=== PATIENT | male | born 1945 | race Two or more races ===

== ENCOUNTER 2018-11-26 10:40 | Inpatient (IN) | payer MEDICARE, OTHER ==
[~2018-11-26] VITALS: Ht 167.6 cm; Wt 66.9 kg
--- NOTE | 2018-11-26 10:40 | NUR ---
ED Nurse Note: PT BROUGHT IN TO ER TODAY BY R68 FROM [facility] DUE TO LEFT-SIDED, NONRADIATING CHEST PAIN X 0800 THIS AM. PT GIVEN 2 ROUNDS OF NTG AT FACILITY AND 1 ROUND OF NTG BY EMS WELL 325MG OF ASPIRIN EN ROUTE. AT BEDSIDE, PT DENIES CHEST PAIN. HR 61 WITH NORMAL SINUS RHYTHM ON CUSTOMS MANAGER. OF NOTE, PT GOES TO DIALYSIS [facility] AND PRESENTS WITH LEFT FOREARM AV SHUNT. PT STATES LAST DIALYSIS WAS YESTERDAY. PT ALSO PRESENTS WITH ATRIAL PACEMAKER TO RIGHT UPPER CHEST. PT AOX4 AND AMBULATORY.
[2018-11-26] MEDS ORDERED: DULCOLAX10 MG RC (11:02)
[2018-11-26] MEDS ORDERED: ISOSORBIDE MONO30 M1 PO (11:02)
[2018-11-26] MEDS ORDERED: HYDRALAZINE HCL25 M1 ORAL (11:02)
[2018-11-26] MEDS ORDERED: ACETAMINOPHEN325 M1 ORAL (11:02)
[2018-11-26] MEDS ORDERED: AVODART0.5 MG ORAL (11:02)
[2018-11-26] MEDS ORDERED: KEPPRA500 M4 ORAL (11:02)
[2018-11-26] MEDS ORDERED: AMIODARONE HCL200 MG ORAL (11:02)
[2018-11-26] MEDS ORDERED: PAXIL20 MG ORAL (11:02)
[2018-11-26] MEDS ORDERED: NEPHROVITE1 TAB ORAL (11:02)
[2018-11-26] MEDS ORDERED: PROTONIX40 MG ORAL (11:02)
[2018-11-26] MEDS ORDERED: ARTIFICIAL TEAR15 ML BOTH EYES (11:02)
[2018-11-26] MEDS ORDERED: RENAGEL800 MG ORAL (11:02)
[2018-11-26] MEDS ORDERED: MECLIZINE HCL25 MG ORAL (11:02)
[2018-11-26] MEDS ORDERED: FOLIC ACID1 MG ORAL (11:02)
[2018-11-26] MEDS ORDERED: FLOMAX0.4 MG ORAL (11:02)
[2018-11-26] MEDS ORDERED: AMLODIPINE BESY10 MG ORAL (11:02)
[2018-11-26] MEDS ORDERED: CARVEDILOL25 MG ORAL (11:02)
[2018-11-26] MEDS ORDERED: HUMULIN R100 UNIT/1 SUBQ (11:02)
[2018-11-26] MEDS ORDERED: COLACE100 MG ORAL (11:02)
[2018-11-26] MEDS ORDERED: ASPIRIN81 MG ORAL (11:02)
[2018-11-26] MEDS ORDERED: GABAPENTIN100 MG ORAL (11:02)
[2018-11-26] MEDS ORDERED: ASCORBIC ACID500 MG ORAL (11:02)
[2018-11-26] MEDS ORDERED: FLEET ENEMA133 ML RECTAL (11:02)
[2018-11-26] MEDS ORDERED: MILK OF MA400 MG/51 ORAL (11:02)
--- NOTE | 2018-11-26 11:06 | Emergency Room Report ---
History of Present Illness General Chief Complaint: Chest Pain Source: Patient, EMS Present Illness HPI Patient presents with complaints of chest pain reports the pain started earlier today midsternal denies any change with position or exertion denies any cough or shortness of breath patient has dialysis On Friday and did have his dialysis yesterday Denies any pleurisy denies any vomiting or diarrhea denies any fevers or chills Allergies: Coded Allergies: LOSARTAN (Verified Allergy, Unknown, 11/26/18) METOCLOPRAMIDE (Verified Allergy, Unknown, 11/26/18) [id number] REDUCTASE INHIBITOR (Verified Allergy, Unknown, 11/26/18) Patient History Past Medical History: see triage record Pertinent Family History: none Reviewed Nursing Documentation: PMH: Agreed; PSxH: Agreed Nursing Documentation-PMH Past Medical History: No History, Except For Hx Cardiac Problems: Yes - CHF, hyperlipidemia Hx Pacemaker: Yes Hx Diabetes: Yes Hx Dialysis: Yes - MWF Review of Systems All Other Systems: negative except mentioned in HPI Physical Exam Vital Signs Date Time Temp Pulse Resp B/P (MAP) Pulse Ox O2 Delivery O2 Flow Rate FiO2 11/26/18 10:37 63 16 137/63 (87) 99 Room Air Sp02 EP Interpretation: reviewed, normal General Appearance: well appearing, no apparent distress Head: normocephalic, atraumatic Eyes: bilateral eye PERRL, bilateral eye EOMI ENT: hearing grossly normal, normal pharynx, TMs + canals normal, uvula midline Neck: full range of motion, supple, no meningismus, no bony tend Respiratory: lungs clear, normal breath sounds, no rhonchi, no respiratory distress, no retraction, no accessory muscle use Cardiovascular #1: normal peripheral pulses, regular rate, rhythm, no edema, no gallop, no JVD, no murmur Gastrointestinal: normal bowel sounds, non tender, soft, no mass, no organomegaly, non-distended, no guarding, no hernia, no pulsatile mass, no rebound Genitourinary: no CVA tenderness Musculoskeletal: normal inspection Neurologic: oriented x3, responsive, cigar brander III-XII nml as tested, motor strength/ tone normal, sensory intact Psychiatric: mood/affect normal Skin: normal color, no rash, warm/dry, palpation normal, other - AV fistula left forearm Lymphatic: normal inspection, no adenopathy Medical Decision Making Diagnostic Impression: Primary Impression: ACS (acute coronary syndrome) ER Course Patient is a fairly complex patient with multiple differential to consideration including but not limited to cardiac cardiopulmonary and vascular emergencies it was reported that the patient had several attempts by nursing staff for IV establishment At this time patient now refuses any further attempt Also does not want to entertain Placement by myself Blood work is at baseline levels x-ray does not show any acute disease Patient will be placed in observation for further evaluation and repeat examinations Labs Test 11/26/18 10:45 White Blood Count 5.2 K/UL (4.8-10.8) Red Blood Count 3.35 M/UL (4.70-6.10) Hemoglobin 11.4 G/DL (14.2-18.0) Hematocrit 33.0 % (42.0-52.0) Mean Corpuscular Volume 99 FL (80-99) Mean Corpuscular Hemoglobin 33.9 PG (27.0-31.0) Mean Corpuscular Hemoglobin Concent 34.4 G/DL (32.0-36.0) Red Cell Distribution Width 13.1 % (11.6-14.8) Platelet Count 97 K/UL (150-450) Mean Platelet Volume 7.2 FL (6.5-10.1) Neutrophils (%) (Auto) % (45.0-75.0) Lymphocytes (%) (Auto) % (20.0-45.0) Monocytes (%) (Auto) % (1.0-10.0) Eosinophils (%) (Auto) % (0.0-3.0) Basophils (%) (Auto) % (0.0-2.0) Differential Total Cells Counted 100 Neutrophils % (Manual) 80 % (45-75) Lymphocytes % (Manual) 11 % (20-45) Monocytes % (Manual) 6 % (1-10) Eosinophils % (Manual) 3 % (0-3) Basophils % (Manual) 0 % (0-2) Band Neutrophils 0 % (0-8) Platelet Estimate Decreased Platelet Morphology Normal Sodium Level 137 MMOL/L (136-145) Potassium Level 3.6 MMOL/L (3.5-5.1) Chloride Level 100 MMOL/L (98-107) Carbon Dioxide Level 29 MMOL/L (21-32) Anion Gap 8 mmol/L (5-15) Blood Urea Nitrogen 22 mg/dL (7-18) Creatinine 4.5 MG/DL (0.55-1.30) Estimat Glomerular Filtration Rate mL/min (>60) Glucose Level 193 MG/DL (74-106) Calcium Level 9.5 MG/DL (8.5-10.1) Total Bilirubin 0.8 MG/DL (0.2-1.0) Aspartate Amino Transf (AST/SGOT) 37 U/L (15-37) Alanine Aminotransferase (ALT/SGPT) 48 U/L (12-78) Alkaline Phosphatase 142 U/L (46-116) Total Creatine Kinase 64 U/L (26-308) Creatine Kinase MB 0.8 NG/ML (0.0-3.6) Creatine Kinase MB Relative Index 1.2 Troponin I 0.017 ng/mL (0.000-0.056) Pro-B-Type Natriuretic Peptide 56511 pg/mL (0-125) Total Protein 7.4 G/DL (6.4-8.2) Albumin 3.3 G/DL (3.4-5.0) Globulin 4.1 g/dL Albumin/Globulin Ratio 0.8 (1.0-2.7) Lipase 85 U/L (73-393) EKG Diagnostic Results Rate: other - paced Rhythm: other ST Segments: no acute changes Rhythm Strip Diag. Results EP Interpretation: yes Rate: 60 Rhythm: no PVC's, no ectopy, other - paced Chest X-Ray Diagnostic Results Chest X-Ray Diagnostic Results : Chest X-Ray Ordered: Yes # of Views/Limited/Complete: 1 View Indication: Chest Pain EP Interpretation: Yes Interpretation: no consolidation, no effusion, no pneumothorax Impression: No acute disease Electronically Signed by: Vera Davis DO Last Vital Signs Date Time Temp Pulse Resp B/P (MAP) Pulse Ox O2 Delivery O2 Flow Rate FiO2 11/26/18 10:37 63 16 137/63 (87) 99 Room Air Status: improved Disposition: PLACE IN OBSERVATION Condition: Vera Dejesus DO Nov 26, 2018 11:06
[2018-11-26 11:08] VITALS: BP 153/64
[2018-11-26 11:11] LABS: ANION GAP 8 mmol/L (5-15); BLOOD UREA NITROGEN 22 mg/dL (7-18); CALCIUM 9.5 MG/DL (8.5-10.1); CARBON DIOXIDE 29 MMOL/L (21-32); CHLORIDE 100 MMOL/L (98-107); CREATININE 4.5 MG/DL (0.55-1.30); POTASSIUM 3.6 MMOL/L (3.5-5.1); SODIUM 137 MMOL/L (136-145)
[2018-11-26 11:16] LABS: HEMOGLOBIN 11.4 G/DL (14.2-18.0); MEAN CORPUSCULAR VOLUME 99 FL (80-99); PLATELET COUNT 97 K/UL (150-450); RED BLOOD COUNT 3.35 M/UL (4.70-6.10); RED CELL DISTRIBUTION WIDTH 13.1 % (11.6-14.8); WHITE BLOOD COUNT 5.2 K/UL (4.8-10.8)
[2018-11-26 11:26] LABS: ALANINE AMINOTRANSFERASE 48 U/L (12-78); ALBUMIN 3.3 G/DL (3.4-5.0); ALBUMIN/GLOBULIN RATIO 0.8 (1.0-2.7); ALKALINE PHOSPHATASE 142 U/L (46-116); ASPARTATE AMINO TRANSFERASE 37 U/L (15-37); BILIRUBIN,TOTAL 0.8 MG/DL (0.2-1.0); CKMB 0.8 NG/ML (0.0-3.6); CREATINE KINASE 64 U/L (26-308)
--- NOTE | 2018-11-26 11:55 | Diagnostic Imaging Report ---
Indication: Chest pain Comparison: None A single view chest radiograph was obtained. Findings: There is a pacemaker in the right anterior chest wall. Cardiomegaly and sternotomy noted. Aorta is ectatic. Mild pulmonary vascular congestion is present. There is a stent in the left axilla. Bones are osteopenic. IMPRESSION: Pulmonary vascular congestion
--- NOTE | 2018-11-26 12:27 | NUR ---
ED Nurse Note: 4 nurses attempted to establish IV unable pt hard stick. . blast furnace helper tried pt refused any further attempts. ERMD aware and ED sup. aware.
--- NOTE | 2018-11-26 12:51 | NUR ---
ED Nurse Note: TELE UNIT CALLED FOR PT REPORT. REPORT GIVEN TO ALICIA OWENS BY ALICIA KNOWLES. PT TAKEN UP TO TELE UNIT VIA GURNEY ON HAZARDOUS WASTE REMOVER WITH ALL BELONGINGS ACCOMPANIED BY ALICIA KNOWLES AND EMT. VSS.
--- NOTE | 2018-11-26 13:00 | NUR ---
NURSE NOTES: Report received from ALICIA Stout from ED.
--- NOTE | 2018-11-26 13:00 | NUR ---
NURSE NOTES: Patient arrived to unit via gurney accompanied with RN. Patient is alert and oriented x 3 and verbally responsive. Denies pain at this time. No distress noted in room air. No IV access at this time due to refusal. Belongings checked with RN. Skin assessment done with no skin problems noted. monitor tech applied to the patient. Oriented to new room and environment. Bed in lowest position. Call light within reach. Will continue to monitor.
[2018-11-26 13:15] VITALS: BP 157/77
--- NOTE | 2018-11-26 13:54 | Consultation ---
History of Present Illness General Date patient seen: Nov 26, 2018 Chief Complaint: Chest Pain Present Illness HPI 73 year old male with hx of DM, HTN, ESRF on HD (Friday), with ICD presented to ER from his correction with complaints of chest pain, midsternal denies any change with position or exertion denies any cough or shortness of breath. He is admitted to telemetry for further work up. Allergies: Coded Allergies: LOSARTAN (Verified Allergy, Unknown, 11/26/18) METOCLOPRAMIDE (Verified Allergy, Unknown, 11/26/18) [id number] REDUCTASE INHIBITOR (Verified Allergy, Unknown, 11/26/18) Medication History Scheduled Amiodarone Hcl* (Cordarone*), 200 MG ORAL DAILY, (Reported) Amlodipine Besylate* (Amlodipine Besylate*), 10 MG ORAL DAILY, (Reported) Ascorbic Acid* (Ascorbic Acid*), 500 MG ORAL TWICE A DAY, (Reported) Aspirin* (Aspirin*), 81 MG ORAL DAILY, (Reported) Carvedilol* (Carvedilol*), 25 MG ORAL EVERY 12 HOURS, (Reported) Docusate Sodium* (Colace*), 100 MG ORAL DAILY, (Reported) Dutasteride (Avodart), 0.5 MG ORAL DAILY, (Reported) Folic Acid* (Folic Acid*), 1 MG ORAL DAILY, (Reported) Gabapentin* (Gabapentin*), 100 MG ORAL BID, (Reported) Hydralazine Hcl* (Hydralazine Hcl*), 25 MG ORAL EVERY 8 HOURS, (Reported) Levetiracetam (Keppra), 500 MG ORAL EVERY 12 HOURS, (Reported) Magnesium Hydroxide* (Milk Of Magnesia*), 30 ML ORAL DAILY, (Reported) Meclizine Hcl* (Meclizine*), 25 MG ORAL THREE TIMES A DAY, (Reported) Na Phos,M-B/Na Phos,Di-Ba* (Fleet Enema*), 133 ML RECTAL DAILY, (Reported) Pantoprazole* (Protonix*), 40 MG ORAL DAILY, (Reported) Paroxetine Hcl* (Paxil*), 20 MG ORAL DAILY, (Reported) Sevelamer Hcl (Renagel), 800 MG ORAL THREE TIMES A DAY, (Reported) Tamsulosin HCl (Flomax), 0.4 MG ORAL DAILY, (Reported) Vitamin B Cmplx/Vit C/Folic AC (Nephro-John Tablet), 1 TAB ORAL DAILY, (Reported ) Scheduled PRN Acetaminophen* (Acetaminophen 325MG Tablet*), 650 MG ORAL Q4H PRN for Pain Scale (3-5), (Reported) Miscellaneous Medications Bisacodyl (Dulcolax), 10 MG RC, (Reported) Dextran 70/Hypromellose (Artificial Tears Eye Drops*), 1 DROP BOTH EYES, ( Reported) Insulin Regular, Human (Humulin R), 0 SUBQ, (Reported) Isosorbide Mononitrate (Isosorbide Mononitrate Er), 30 MG PO, (Reported) Patient History Healthcare decision maker Resuscitation status Full Code Advanced Directive on File Past Medical/Surgical History Past Medical/Surgical History: (1) ESRF (end stage renal failure) (2) Diabetes mellitus (3) History of seizure (4) BPH (benign prostatic hyperplasia) (5) AICD (automatic cardioverter/defibrillator) present Review of Systems Eye: Reports: no symptoms Cardiovascular: Reports: chest pain Physical Exam General Appearance: WD/WN Lines, tubes and drains: peripheral HEENT: normocephalic, atraumatic Neck: non-tender, normal alignment Respiratory/Chest: chest wall non-tender, lungs clear Breasts: no masses Cardiovascular/Chest: normal peripheral pulses Abdomen: normal bowel sounds, soft Genitourinary/Rectal: normal genital exam, heme negative stool Extremities: non-tender Skin Exam: normal pigmentation 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 normal Last 24 Hour Vital Signs Date Time Temp Pulse Resp B/P (MAP) Pulse Ox O2 Delivery O2 Flow Rate FiO2 11/26/18 13:45 Room Air 11/26/18 12:51 97.2 61 12 153/64 99 Room Air 11/26/18 11:08 61 12 Room Air 11/26/18 11:08 97.2 61 12 153/64 99 Room Air 11/26/18 10:37 63 16 137/63 (87) 99 Room Air Laboratory Tests Test 11/26/18 10:45 White Blood Count 5.2 K/UL (4.8-10.8) Red Blood Count 3.35 M/UL (4.70-6.10) L Hemoglobin 11.4 G/DL (14.2-18.0) L Hematocrit 33.0 % (42.0-52.0) L Mean Corpuscular Volume 99 FL (80-99) Mean Corpuscular Hemoglobin 33.9 PG (27.0-31.0) H Mean Corpuscular Hemoglobin Concent 34.4 G/DL (32.0-36.0) Red Cell Distribution Width 13.1 % (11.6-14.8) Platelet Count 97 K/UL (150-450) L Mean Platelet Volume 7.2 FL (6.5-10.1) Neutrophils (%) (Auto) % (45.0-75.0) Lymphocytes (%) (Auto) % (20.0-45.0) Monocytes (%) (Auto) % (1.0-10.0) Eosinophils (%) (Auto) % (0.0-3.0) Basophils (%) (Auto) % (0.0-2.0) Differential Total Cells Counted 100 Neutrophils % (Manual) 80 % (45-75) H Lymphocytes % (Manual) 11 % (20-45) L Monocytes % (Manual) 6 % (1-10) Eosinophils % (Manual) 3 % (0-3) Basophils % (Manual) 0 % (0-2) Band Neutrophils 0 % (0-8) Platelet Estimate Decreased L Platelet Morphology Normal Sodium Level 137 MMOL/L (136-145) Potassium Level 3.6 MMOL/L (3.5-5.1) Chloride Level 100 MMOL/L (98-107) Carbon Dioxide Level 29 MMOL/L (21-32) Anion Gap 8 mmol/L (5-15) Blood Urea Nitrogen 22 mg/dL (7-18) H Creatinine 4.5 MG/DL (0.55-1.30) H Estimat Glomerular Filtration Rate mL/min (>60) Glucose Level 193 MG/DL (74-106) H Calcium Level 9.5 MG/DL (8.5-10.1) Total Bilirubin 0.8 MG/DL (0.2-1.0) Aspartate Amino Transf (AST/SGOT) 37 U/L (15-37) Alanine Aminotransferase (ALT/SGPT) 48 U/L (12-78) Alkaline Phosphatase 142 U/L (46-116) H Total Creatine Kinase 64 U/L (26-308) Creatine Kinase MB 0.8 NG/ML (0.0-3.6) Creatine Kinase MB Relative Index 1.2 Troponin I 0.017 ng/mL (0.000-0.056) Pro-B-Type Natriuretic Peptide 41929 pg/mL (0-125) H Total Protein 7.4 G/DL (6.4-8.2) Albumin 3.3 G/DL (3.4-5.0) L Globulin 4.1 g/dL Albumin/Globulin Ratio 0.8 (1.0-2.7) L Lipase 85 U/L (73-393) Height (Feet): 5 Height (Inches): 6.00 Weight (Pounds): 135 Assessment/Plan Problem List: (1) ACS (acute coronary syndrome) ICD Codes: I24.9 - Acute ischemic heart disease, unspecified SNOMED: 063843140 (2) ESRF (end stage renal failure) ICD Codes: N18.6 - End stage renal disease SNOMED: 22469666 (3) Diabetes mellitus ICD Codes: E11.9 - Type 2 diabetes mellitus without complications SNOMED: 21946392 (4) AICD (automatic cardioverter/defibrillator) present ICD Codes: Z95.810 - Presence of automatic (implantable) cardiac defibrillator SNOMED: 20296926, 532620217 (5) History of seizure ICD Codes: Z87.898 - Personal history of other specified conditions SNOMED: 420344201 (6) BPH (benign prostatic hyperplasia) ICD Codes: N40.0 - Benign prostatic hyperplasia without lower urinary tract symptoms SNOMED: 109777314 Assessment/Plan: serial ekg, troponin echocardiogram cardiology evaluation. check ICD sliding scale diabetic diet seizure precaution Emiliano Castellanos MD Nov 26, 2018 13:54
[2018-11-26] MEDS ORDERED: Morphine Sulfate 2mg/ml Inj(IV/IM USE ONLY) IVP PRN (14:00)
[2018-11-26] MEDS ORDERED: Dextrose 50% 25ml Syringe IV PRN (14:00)
[2018-11-26] MEDS ORDERED: Miralax 17gm pkt ORAL PRN (14:00)
[2018-11-26] MEDS ORDERED: Zolpidem 5mg tab ORAL PRN (14:00)
[2018-11-26] MEDS ORDERED: Albuterol/Ipratropium 3ml neb HHN PRN (14:00)
[2018-11-26 16:00] VITALS: BP 164/74
--- NOTE | 2018-11-26 16:00 | NUR ---
CASE MANAGEMENT: INITIAL REVIEW 11/26/2018 73 YO Rylan ROSS FROM [facility] CC: CP PMHx: CHF. HLD. PACER. DM. HD MWF. ESRD. Si:ACS. HR 63 RR 16 B/P 137/63 SATS 99% ON RA BUN 22 CR 4.5 GLU 193 ALP 142 BNP 59949 IS: KEPPRA PO Q12H GABAPENTIN PO BID CORDARONE PO QD PAXIL PO QD FLOMAX PO QD NOVOLOG SUBQ AC/HS PATIENT ADMITTED TO TELE 11/26/2018 @ 7264 DCP: PATIENT TO BE DISCHARGED TO SNF ONCE MEDICALLY CLEARED. PLAN OF CARE: PT EVAL SERIAL TROPONIN CARDIO EVAL PACER INTERROGATION 2D ECHO EF 55% Addendum: 11/26/18 at 1608 by Sanna Bravo INTERQUAL MET
[2018-11-26] MEDS: NovoLOG Insulin Flexpen SUBQ SCH ×2 (16:13→21:00)
--- NOTE | 2018-11-26 16:47 | Consultation ---
Consult Note Consult Note asked to eval for dialysis management on HD Fri Has left arm fistula Frisian speaker Patient presents with complaints of chest pain reports the pain started earlier today midsternal denies any change with position or exertion denies any cough or shortness of breath patient has dialysis On Friday and did have his dialysis yesterday Denies any pleurisy denies any vomiting or diarrhea denies any fevers or chills Coded Allergies: LOSARTAN (Verified Allergy, Unknown, 11/26/18) METOCLOPRAMIDE (Verified Allergy, Unknown, 11/26/18) [id number] REDUCTASE INHIBITOR (Verified Allergy, Unknown, 11/26/18) Past Medical History: No History, Except For Hx Cardiac Problems: Yes - CHF, hyperlipidemia Hx Pacemaker: Yes Hx Diabetes: Yes Hx Dialysis: Yes - MWF examined data reviewed Assessment/Plan ACS ESRD HTN BPH DM HD in am BP and BS control per cardiology Manolo Grimes MD Nov 26, 2018 16:47
--- NOTE | 2018-11-26 17:20 | NUR ---
NURSE NOTES: Called to [facility] dialysis center to inform about Hemodialysis order for tomorrow. Spoke with Kesha from [facility] dialysis. Awaiting for call back from dialysis nurse.
--- NOTE | 2018-11-26 19:32 | NUR ---
HAND-OFF: Report given to ALICIA Santana. Stable condition.
--- NOTE | 2018-11-26 19:33 | NUR ---
NURSE NOTES: Report received from ALICIA Dave. Patient is alert and oriented x 3 and verbally responsive. Pt is resting at this time. No distress noted on room air. No IV access at this time due to refusal. ekg monitor leads in place. Bed is locked in lowest position, side rails x2. Will continue to monitor.
[2018-11-26 20:00] VITALS: BP 155/71
[2018-11-26] MEDS: Heparin 5000 units/ml inj SUBQ SCH (21:00)
[2018-11-26] MEDS ORDERED: Tamsulosin 0.4mg cap ORAL SCH (21:00)
[2018-11-26] MEDS: Tamsulosin 0.4mg cap ORAL SCH (21:32)
--- NOTE | 2018-11-27 00:30 | History and Physical Report ---
DATE OF ADMISSION: 11/26/2018 CONSULTANTS: 1. Emiliano Castellanos M.D. 2. Reno Pinto M.D. 3. Bianka Lopez M.D. CHIEF COMPLAINT: Severe chest pain, ACS. BRIEF HISTORY: This is a 73-year-old male from [facility], presents with what he describes as 10/10 chest pain, substernal. The patient came to [facility], diagnosed with the above, and admitted to telemetry. Currently, getting ultrasound in bed, sleepy, not talking much, refusing to answer questions. PAST MEDICAL HISTORY: Include ACS, ESRD, diabetes, BPH, and seizure. PAST SURGICAL HISTORY: Unknown. MEDICATIONS: Include amiodarone, paroxetine, , , heparin, gabapentin, insulin, morphine, Zofran, zolpidem, clonidine, and Tylenol. ALLERGIES: Losartan, Reglan, and statins. SOCIAL HISTORY: Unable to obtain secondary to the patient's condition. REVIEW OF SYSTEMS: Unavailable. PHYSICAL EXAMINATION: GENERAL: Calm, sleeping in bed, getting an ultrasound. VITAL SIGNS: Temperature is 97 degrees, pulse 61, respirations 20, and blood pressure 157/77. CARDIOVASCULAR: No murmurs. LUNGS: Distant and clear. ABDOMEN: Bowel sounds positive. Nontender and nondistended. EXTREMITIES: Show no cyanosis or edema. NEUROLOGIC: The patient is flaccid in bed, not following directions. LABORATORY AND DIAGNOSTIC DATA: Labs at this time show hemoglobin and hematocrit are 11.4 and 33. Otherwise, CBC is normal. BMP shows BUN and creatinine are 22 and 4.5. Glucose is 193. Alkaline phosphatase 143. Troponin 0.017. BNP is 22,865. Albumin 3.3. ASSESSMENT: 1. ACS. 2. Confusion. 3. ESRD. 4. Diabetes. 5. BPH. 6. Seizure. 7. Anemia. 8. Malnutrition. PLAN: 1. Cardiology followup. 2. Blood pressure control. 3. Blood sugar control. 4. Seizure control. 5. Dietary followup. 6. Resume home medications. 7. Dialysis p.r.n. 8. Troponin q.8 h. x3. 9. EKG in the a.m. 10. PT and dietary evaluation. Jethro Novoa D.O. DR: [place] JOB#: [id number] CC:
[2018-11-27 00:35] VITALS: BP 150/74
[2018-11-27 04:00] VITALS: BP 156/68
[2018-11-27] MEDS: NovoLOG Insulin Flexpen SUBQ SCH ×4 (06:30→21:00)
--- NOTE | 2018-11-27 07:27 | NUR ---
HAND-OFF: Report given to ALICIA Gutierrez.
--- NOTE | 2018-11-27 07:35 | NUR ---
NURSE NOTES: Pt received from Jet RN alert and oriented x3, primarily Cymro-speaking. No acute s/s of distress noted. No IV on patient at this time, per PM nurse, IV site was d/gary by patient and unable to start new one. Will try to start IV. L arm AV shunt bruit and thrill palpated and auscultated, pending HD today with [facility]. Bed in lowest position, call light and belongings within reach.
[2018-11-27 08:00] VITALS: BP 152/70
[2018-11-27] MEDS: Amiodarone 200mg tab ORAL SCH ×2 (08:28→08:31)
[2018-11-27] MEDS: PARoxetine 20mg tab ORAL SCH (08:29)
[2018-11-27] MEDS: Heparin 5000 units/ml inj SUBQ SCH ×2 (08:29→21:00)
--- NOTE | 2018-11-27 08:40 | General Progress Note ---
Assessment/Plan Problem List: (1) ACS (acute coronary syndrome) ICD Codes: I24.9 - Acute ischemic heart disease, unspecified SNOMED: 684968581 (2) ESRF (end stage renal failure) ICD Codes: N18.6 - End stage renal disease SNOMED: 03231090 (3) Diabetes mellitus ICD Codes: E11.9 - Type 2 diabetes mellitus without complications SNOMED: 14685974 (4) History of seizure ICD Codes: Z87.898 - Personal history of other specified conditions SNOMED: 375799450 (5) BPH (benign prostatic hyperplasia) ICD Codes: N40.0 - Benign prostatic hyperplasia without lower urinary tract symptoms SNOMED: 213081938 Status: stable, progressing Assessment/Plan: pt diet pain control cardio f/u cbc bmp am dc plan Subjective Constitutional: Reports: weakness Allergies: Coded Allergies: LOSARTAN (Verified Allergy, Unknown, 11/26/18) METOCLOPRAMIDE (Verified Allergy, Unknown, 11/26/18) [id number] REDUCTASE INHIBITOR (Verified Allergy, Unknown, 11/26/18) All Systems: reviewed and negative except above Subjective decreased chest pain Objective Last 24 Hour Vital Signs Date Time Temp Pulse Resp B/P (MAP) Pulse Ox O2 Delivery O2 Flow Rate FiO2 11/27/18 08:29 64 18 96 Room Air 21 11/27/18 04:00 97.3 62 18 156/68 (97) 98 11/27/18 04:00 60 11/27/18 00:35 97.7 63 18 150/74 (99) 98 11/27/18 00:00 60 11/26/18 21:01 Room Air 11/26/18 20:00 97.6 60 20 155/71 (99) 98 11/26/18 20:00 60 11/26/18 19:20 60 18 97 Room Air 21 11/26/18 17:13 164/74 11/26/18 16:00 60 11/26/18 16:00 96.6 60 21 164/74 (104) 98 11/26/18 13:45 Room Air 11/26/18 13:15 97.6 61 20 157/77 (103) 99 11/26/18 12:51 97.2 61 12 153/64 99 Room Air 11/26/18 11:08 61 12 Room Air 6/27/19 11:08 97.2 61 12 153/64 99 Room Air 11/26/18 10:37 63 16 137/63 (87) 99 Room Air Intake and Output 11/26/18 11/27/18 19:00 07:00 Intake Total 30 ml 170 ml Output Total 0 ml 0 ml Balance 30 ml 170 ml Intake Oral 30 ml 170 ml Output Urine Total 0 ml 0 ml # Voids 1 Laboratory Tests 11/26/18 10:45: White Blood Count 5.2, Red Blood Count 3.35L, Hemoglobin 11.4L, Hematocrit 33.0L , Mean Corpuscular Volume 99, Mean Corpuscular Hemoglobin 33.9H, Mean Corpuscular Hemoglobin Concent 34.4, Red Cell Distribution Width 13.1, Platelet Count 97L, Mean Platelet Volume 7.2, Neutrophils (%) (Auto) , Lymphocytes (%) ( Auto) , Monocytes (%) (Auto) , Eosinophils (%) (Auto) , Basophils (%) (Auto) , Differential Total Cells Counted 100, Neutrophils % (Manual) 80H, Lymphocytes % (Manual) 11L, Monocytes % (Manual) 6, Eosinophils % (Manual) 3, Basophils % ( Manual) 0, Band Neutrophils 0, Platelet Estimate DecreasedL, Platelet Morphology Normal, Sodium Level 137, Potassium Level 3.6, Chloride Level 100, Carbon Dioxide Level 29, Anion Gap 8, Blood Urea Nitrogen 22H, Creatinine 4.5H, Estimat Glomerular Filtration Rate , Glucose Level 193H, Calcium Level 9.5, Total Bilirubin 0.8, Aspartate Amino Transf (AST/SGOT) 37, Alanine Aminotransferase (ALT/SGPT) 48, Alkaline Phosphatase 142H, Total Creatine Kinase 64, Creatine Kinase MB 0.8, Creatine Kinase MB Relative Index 1.2, Troponin I 0.017, Pro-B-Type Natriuretic Peptide 20083L, Total Protein 7.4, Albumin 3.3L, Globulin 4.1, Albumin/Globulin Ratio 0.8L, Lipase 85 11/26/18 17:00: Troponin I 0.013 11/27/18 08:20: White Blood Count [Pending], Red Blood Count [Pending], Hemoglobin [Pending], Hematocrit [Pending], Mean Corpuscular Volume [Pending], Mean Corpuscular Hemoglobin [Pending], Mean Corpuscular Hemoglobin Concent [Pending], Red Cell Distribution Width [Pending], Platelet Count [Pending], Mean Platelet Volume [ Pending], Neutrophils (%) (Auto) [Pending], Lymphocytes (%) (Auto) [Pending], Monocytes (%) (Auto) [Pending], Eosinophils (%) (Auto) [Pending], Basophils (%) (Auto) [Pending], Sodium Level [Pending], Potassium Level [Pending], Chloride Level [Pending], Carbon Dioxide Level [Pending], Blood Urea Nitrogen [Pending], Creatinine [Pending], Estimat Glomerular Filtration Rate [Pending], Glucose Level [Pending], Calcium Level [Pending], Total Bilirubin [Pending], Aspartate Amino Transf (AST/SGOT) [Pending], Alanine Aminotransferase (ALT/SGPT) [Pending] , Alkaline Phosphatase [Pending], Total Creatine Kinase [Pending], Troponin I [ Pending], Pro-B-Type Natriuretic Peptide [Pending], Total Protein [Pending], Albumin [Pending], Globulin [Pending], Hemoglobin A1c [Pending], Uric Acid [ Pending], Phosphorus Level [Pending], Magnesium Level [Pending], Iron Level [ Pending], Unsaturated Iron Binding [Pending], Ferritin [Pending], Gamma Glutamyl Transpeptidase [Pending], C-Reactive Protein, Quantitative [Pending], Triglycerides Level [Pending], Cholesterol Level [Pending], LDL Cholesterol [ Pending], HDL Cholesterol [Pending], Cholesterol/HDL Ratio [Pending], Vitamin B12 Level [Pending], Folate [Pending], Thyroid Stimulating Hormone (TSH) [ Pending] Height (Feet): 5 Height (Inches): 6.00 Weight (Pounds): 148 General Appearance: lethargic EENT: normal ENT inspection Neck: normal alignment Cardiovascular: normal peripheral pulses, normal rate, regular rhythm Respiratory/Chest: chest wall non-tender, lungs clear, normal breath sounds Abdomen: normal bowel sounds, non tender, soft Extremities: normal inspection Edema: no edema noted Arm (L), no edema noted Arm (R), no edema noted Leg (L), no edema noted Leg (R), no edema noted Pedal (L), no edema noted Pedal (R), no edema noted Generalized Neurologic: responsive, motor weakness Skin: normal pigmentation, warm/dry Jethro Novoa DO Nov 27, 2018 08:40
[2018-11-27 08:44] LABS: BASOPHILS % (AUTO) 0.7 % (0.0-2.0); EOSINOPHILS % (AUTO) 2.8 % (0.0-3.0); HEMATOCRIT 31.5 % (42.0-52.0); HEMOGLOBIN 10.8 G/DL (14.2-18.0); LYMPHOCYTES % (AUTO) 16.9 % (20.0-45.0); MEAN CORPUSCULAR VOLUME 98 FL (80-99); MONOCYTES % (AUTO) 10.3 % (1.0-10.0); NEUTROPHILS % (AUTO) 69.2 % (45.0-75.0); PLATELET COUNT 100 K/UL (150-450); RED BLOOD COUNT 3.22 M/UL (4.70-6.10); RED CELL DISTRIBUTION WIDTH 12.6 % (11.6-14.8); WHITE BLOOD COUNT 4.6 K/UL (4.8-10.8)
[2018-11-27] MEDS ORDERED: Tamsulosin 0.4mg cap ORAL SCH (09:00)
[2018-11-27 09:17] LABS: % IRON SATURATION 30 % (15-50); IRON 55 ug/dL (50-175); TOTAL IRON BINDING CAPACITY 184 ug/dL (250-450)
[2018-11-27 09:26] LABS: ALANINE AMINOTRANSFERASE 44 U/L (12-78); ALBUMIN 3.3 G/DL (3.4-5.0); ALBUMIN/GLOBULIN RATIO 0.9 (1.0-2.7); ALKALINE PHOSPHATASE 127 U/L (46-116); ANION GAP 12 mmol/L (5-15); ASPARTATE AMINO TRANSFERASE 35 U/L (15-37); BILIRUBIN,TOTAL 0.7 MG/DL (0.2-1.0); BLOOD UREA NITROGEN 30 mg/dL (7-18); CALCIUM 9.3 MG/DL (8.5-10.1); CARBON DIOXIDE 25 MMOL/L (21-32); CHLORIDE 98 MMOL/L (98-107); CHOLESTEROL 145 MG/DL (< 200); CREATININE 5.9 MG/DL (0.55-1.30); FERRITIN 911 NG/ML (8-388); HDL CHOLESTEROL 48 MG/DL (40-60); POTASSIUM 3.8 MMOL/L (3.5-5.1); SODIUM 135 MMOL/L (136-145); TRIGLYCERIDES 60 MG/DL (30-150)
--- NOTE | 2018-11-27 09:46 | Diagnostic Imaging Report ---
Indication: Abnormal renal function. Renal sufficiency. Technique: A plantar grayscale and color Doppler imaging of the kidneys and bladder. Comparison: None Findings: The right kidney measures 8.7 cm in length. It demonstrates increased echogenicity. An approximately 1 cm simple appearing cysts noted in the midpole the right kidney. A approximately 5 mm this is noted in the lower pole the right kidney. There is no hydronephrosis or sonographically appreciable renal stone. The left kidney measures 9.3 cm in length. Demonstrates increased echogenicity. There is no hydronephrosis or sonographically appreciable renal stone. Subcentimeter simple appearing cysts noted in the left kidney. The bladder is not distended. There is diffuse thickening of the bladder wall which may be related to underdistention however correlation with urinalysis is recommended to exclude cystitis. Imaged portions of the liver and inferior vena cava unremarkable. IMPRESSION: * Somewhat small kidneys bilaterally with increased renal echogenicity suggestive of medical renal disease. Correlate clinically. * No hydronephrosis or sonographically appreciable renal stone. * Subcentimeter cysts noted in the bilateral kidneys. * Diffuse thickening of the bladder wall, possibly exaggerated by underdistention. Possibility of cystitis not excluded. Correlation with urinalysis recommended.
[2018-11-27 10:03] LABS: CREATINE KINASE 51 U/L (26-308); GAMMA GLUTAMYL TRANSPEPTIDASE 124 U/L (5-85); PHOSPHORUS 3.3 MG/DL (2.5-4.9)
--- NOTE | 2018-11-27 10:04 | Nephrology Progress Note ---
Assessment/Plan Problem List: (1) ESRF (end stage renal failure) (2) BPH (benign prostatic hyperplasia) (3) ACS (acute coronary syndrome) (4) Diabetes mellitus Assessment ACS ESRD HTN BPH DM Plan HD today BP and BS control per cardiology Subjective ROS Limited/Unobtainable: No Constitutional: Reports: weakness Objective Objective Last 24 Hour Vital Signs Date Time Temp Pulse Resp B/P (MAP) Pulse Ox O2 Delivery O2 Flow Rate FiO2 11/27/18 08:29 64 18 96 Room Air 21 11/27/18 04:00 97.3 62 18 156/68 (97) 98 11/27/18 04:00 60 11/27/18 00:35 97.7 63 18 150/74 (99) 98 11/27/18 00:00 60 11/26/18 21:01 Room Air 11/26/18 20:00 97.6 60 20 155/71 (99) 98 11/26/18 20:00 60 11/26/18 19:20 60 18 97 Room Air 21 11/26/18 17:13 164/74 11/26/18 16:00 60 11/26/18 16:00 96.6 60 21 164/74 (104) 98 11/26/18 13:45 Room Air 11/26/18 13:15 97.6 61 20 157/77 (103) 99 11/26/18 12:51 97.2 61 12 153/64 99 Room Air 11/26/18 11:08 61 12 Room Air 11/26/18 11:08 97.2 61 12 153/64 99 Room Air 11/26/18 10:37 63 16 137/63 (87) 99 Room Air Intake and Output 11/26/18 11/27/18 19:00 07:00 Intake Total 30 ml 170 ml Output Total 0 ml 0 ml Balance 30 ml 170 ml Intake Oral 30 ml 170 ml Output Urine Total 0 ml 0 ml # Voids 1 Laboratory Tests 11/26/18 10:45: White Blood Count 5.2, Red Blood Count 3.35L, Hemoglobin 11.4L, Hematocrit 33.0L , Mean Corpuscular Volume 99, Mean Corpuscular Hemoglobin 33.9H, Mean Corpuscular Hemoglobin Concent 34.4, Red Cell Distribution Width 13.1, Platelet Count 97L, Mean Platelet Volume 7.2, Neutrophils (%) (Auto) , Lymphocytes (%) ( Auto) , Monocytes (%) (Auto) , Eosinophils (%) (Auto) , Basophils (%) (Auto) , Differential Total Cells Counted 100, Neutrophils % (Manual) 80H, Lymphocytes % (Manual) 11L, Monocytes % (Manual) 6, Eosinophils % (Manual) 3, Basophils % ( Manual) 0, Band Neutrophils 0, Platelet Estimate DecreasedL, Platelet Morphology Normal, Sodium Level 137, Potassium Level 3.6, Chloride Level 100, Carbon Dioxide Level 29, Anion Gap 8, Blood Urea Nitrogen 22H, Creatinine 4.5H, Estimat Glomerular Filtration Rate , Glucose Level 193H, Calcium Level 9.5, Total Bilirubin 0.8, Aspartate Amino Transf (AST/SGOT) 37, Alanine Aminotransferase (ALT/SGPT) 48, Alkaline Phosphatase 142H, Total Creatine Kinase 64, Creatine Kinase MB 0.8, Creatine Kinase MB Relative Index 1.2, Troponin I 0.017, Pro-B-Type Natriuretic Peptide 92987T, Total Protein 7.4, Albumin 3.3L, Globulin 4.1, Albumin/Globulin Ratio 0.8L, Lipase 85 11/26/18 17:00: Troponin I 0.013 11/27/18 08:20: White Blood Count 4.6L, Red Blood Count 3.22L, Hemoglobin 10.8L, Hematocrit 31.5L, Mean Corpuscular Volume 98, Mean Corpuscular Hemoglobin 33.4H, Mean Corpuscular Hemoglobin Concent 34.1, Red Cell Distribution Width 12.6, Platelet Count 100L, Mean Platelet Volume 6.9, Neutrophils (%) (Auto) 69.2, Lymphocytes ( %) (Auto) 16.9L, Monocytes (%) (Auto) 10.3H, Eosinophils (%) (Auto) 2.8, Basophils (%) (Auto) 0.7, Sodium Level 135L, Potassium Level 3.8, Chloride Level 98, Carbon Dioxide Level 25, Anion Gap 12, Blood Urea Nitrogen 30H, Creatinine 5.9H, Estimat Glomerular Filtration Rate , Glucose Level 121H, Calcium Level 9.3, Total Bilirubin 0.7, Aspartate Amino Transf (AST/SGOT) 35, Alanine Aminotransferase (ALT/SGPT) 44, Alkaline Phosphatase 127H, Total Creatine Kinase [Pending], Troponin I [Pending], Pro-B-Type Natriuretic Peptide [Pending], Total Protein 6.8, Albumin 3.3L, Globulin 3.5, Albumin/Globulin Ratio 0.9L, Hemoglobin A1c [Pending], Uric Acid [Pending], Phosphorus Level [ Pending], Magnesium Level [Pending], Iron Level 55, Total Iron Binding Capacity 184L, Percent Iron Saturation 30, Unsaturated Iron Binding 129, Ferritin 911H, Gamma Glutamyl Transpeptidase [Pending], C-Reactive Protein, Quantitative [ Pending], Triglycerides Level 60, Cholesterol Level 145, LDL Cholesterol 88, HDL Cholesterol 48, Cholesterol/HDL Ratio 3.0L, Vitamin B12 Level [Pending], Folate [Pending], Thyroid Stimulating Hormone (TSH) 0.442 Height (Feet): 5 Height (Inches): 6.00 Weight (Pounds): 148 General Appearance: no apparent distress Cardiovascular: normal rate Respiratory/Chest: lungs clear Abdomen: soft Manolo Grimes MD Nov 27, 2018 10:04
--- NOTE | 2018-11-27 10:38 | NUR ---
P.T NOTE: P.T EVALUATION COMPLETED AND TREATMENT INITIATED. PLEASE REFER TO P.T EVALUATION FOR CURRENT FUNCTIONAL STATUS. PATIENT IS ALERT, O X TO PERSON AND PLACE BUT NOT TO TIME. PATIENT IS PLEASANT AND COOPERATIVE , NO C/O PAIN BUT REPORTS C/O GENERALIZED WEAKNESS AFFECTING OVERALL FUNCTIONAL MOBILITY INDEPENDENCE. PATIENT CURRENTLY REQUIRE MIN A X 1 FOR BED MOBILITY AND TRANSFER MOBILITY AND WAS ABLE TO AMBULATE 30 FT USING THE FWW WITH MIN A X 1. PATIENT APPEARED EXHAUSTED POST P.T EVALUATION/TX HOWEVER VITALS WERE STABLE. SKILLED P.T SERVICE IS WARRANTED TO IMPROVE HIS STRENGTH, BALANCE AND ENDURANCE TO INCREASE HIS MOBILITY INDEPENDENCE AND SAFETY. RECOMMEND RETURN TO PRIOR LIVING ARRANGEMENT WITH CONTINUED P.T. THANK YOU FOR THIS REFERRAL. PATIENT IS CLEARED FOR OOB ACTIVITIES WITH NURSING ASSISTANCE.
--- NOTE | 2018-11-27 11:24 | Pulmonology Progress Note ---
Assessment/Plan Problems: (1) ACS (acute coronary syndrome) (2) ESRF (end stage renal failure) (3) Diabetes mellitus (4) AICD (automatic cardioverter/defibrillator) present (5) History of seizure (6) BPH (benign prostatic hyperplasia) Assessment/Plan serial ekg, troponin echocardiogram cardiology evaluation. check ICD sliding scale diabetic diet seizure precaution f/u cardiology recommendations Subjective ROS Limited/Unobtainable: No Constitutional: Reports: no symptoms HEENT: Repors: no symptoms Respiratory: Reports: no symptoms Allergies: Coded Allergies: LOSARTAN (Verified Allergy, Unknown, 11/26/18) METOCLOPRAMIDE (Verified Allergy, Unknown, 11/26/18) [id number] REDUCTASE INHIBITOR (Verified Allergy, Unknown, 11/26/18) Objective Last 24 Hour Vital Signs Date Time Temp Pulse Resp B/P (MAP) Pulse Ox O2 Delivery O2 Flow Rate FiO2 11/27/18 09:00 Room Air 11/27/18 08:29 64 18 96 Room Air 21 11/27/18 08:00 97.6 60 18 152/70 (97) 95 11/27/18 08:00 60 11/27/18 04:00 97.3 62 18 156/68 (97) 98 11/27/18 04:00 60 11/27/18 00:35 97.7 63 18 150/74 (99) 98 11/27/18 00:00 60 11/26/18 21:01 Room Air 11/26/18 20:00 97.6 60 20 155/71 (99) 98 11/26/18 20:00 60 11/26/18 19:20 60 18 97 Room Air 21 11/26/18 17:13 164/74 11/26/18 16:00 60 11/26/18 16:00 96.6 60 21 164/74 (104) 98 11/26/18 13:45 Room Air 11/26/18 13:15 97.6 61 20 157/77 (103) 99 11/26/18 12:51 97.2 61 12 153/64 99 Room Air Intake and Output 11/26/18 11/27/18 18:59 06:59 Intake Total 30 ml 170 ml Output Total 0 ml 0 ml Balance 30 ml 170 ml Intake Oral 30 ml 170 ml Output Urine Total 0 ml 0 ml # Voids 1 General Appearance: WD/WN HEENT: normocephalic, atraumatic Respiratory/Chest: chest wall non-tender, lungs clear Cardiovascular: normal peripheral pulses, normal rate Abdomen: normal bowel sounds, soft, non tender Genitourinary: normal external genitalia 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, no motor/sensory deficits Laboratory Tests 11/26/18 17:00: Troponin I 0.013 11/27/18 08:20: Troponin I 0.013, White Blood Count 4.6L, Red Blood Count 3.22L, Hemoglobin 10.8L, Hematocrit 31.5L, Mean Corpuscular Volume 98, Mean Corpuscular Hemoglobin 33.4H, Mean Corpuscular Hemoglobin Concent 34.1, Red Cell Distribution Width 12.6, Platelet Count 100L, Mean Platelet Volume 6.9, Neutrophils (%) (Auto) 69.2, Lymphocytes (%) (Auto) 16.9L, Monocytes (%) (Auto) 10.3H, Eosinophils (%) (Auto) 2.8, Basophils (%) (Auto) 0.7, Sodium Level 135L, Potassium Level 3.8, Chloride Level 98, Carbon Dioxide Level 25, Anion Gap 12, Blood Urea Nitrogen 30H, Creatinine 5.9H, Estimat Glomerular Filtration Rate , Glucose Level 121H, Hemoglobin A1c 5.8, Uric Acid 3.4, Calcium Level 9.3, Phosphorus Level 3.3, Magnesium Level 2.2, Iron Level 55, Total Iron Binding Capacity 184L, Percent Iron Saturation 30, Unsaturated Iron Binding 129, Ferritin 911H, Total Bilirubin 0.7, Gamma Glutamyl Transpeptidase 124H, Aspartate Amino Transf (AST/SGOT) 35, Alanine Aminotransferase (ALT/SGPT) 44, Alkaline Phosphatase 127H, Total Creatine Kinase 51, C-Reactive Protein, Quantitative 2.0H, Pro-B-Type Natriuretic Peptide 87355C, Total Protein 6.8, Albumin 3.3L, Globulin 3.5, Albumin/Globulin Ratio 0.9L, Triglycerides Level 60 , Cholesterol Level 145, LDL Cholesterol 88, HDL Cholesterol 48, Cholesterol/ HDL Ratio 3.0L, Vitamin B12 Level 944, Folate 60.8H, Thyroid Stimulating Hormone (TSH) 0.442, Hepatitis B Surface Antigen [Pending] Current Medications Medications (Trade) Dose Ordered Sig/Fernando Route PRN Reason Start Time Stop Time Status Last Admin Dose Admin Acetaminophen (Tylenol) 650 mg Q4H PRN ORAL fever 11/26/18 14:00 12/26/18 13:59 Albuterol/ Ipratropium (Albuterol/ Ipratropium) 3 ml Q6HRT PRN HHN dyspnea 11/26/18 14:00 12/01/18 13:59 Amiodarone HCl (Cordarone) 200 mg DAILY ORAL 11/27/18 09:00 12/27/18 08:59 11/27/18 08:31 Clonidine HCl (Catapres Tab) 0.1 mg Q4H PRN ORAL For High Blood Pressure 11/26/18 14:00 12/26/18 13:59 11/26/18 17:13 Dextrose (Dextrose 50%) 25 ml Q30M PRN IV Hypoglycemia 11/26/18 14:00 12/26/18 13:53 Dextrose (Dextrose 50%) 50 ml Q30M PRN IV hypoglycemia 11/26/18 14:00 12/26/18 13:59 Gabapentin (Neurontin) 100 mg BID ORAL 11/26/18 18:00 12/26/18 17:59 11/27/18 08:29 Heparin Sodium (Porcine) (Heparin 5000 units/ml) 5,000 units EVERY 12 HOURS SUBQ 11/26/18 21:00 12/26/18 20:59 Insulin Aspart (NovoLOG) BEFORE MEALS AND HS SUBQ 11/26/18 16:30 12/26/18 16:29 Levetiracetam (Keppra) 500 mg EVERY 12 HOURS ORAL 11/26/18 21:00 12/26/18 20:59 11/27/18 08:29 Morphine Sulfate (Morphine Sulfate) 1 mg Q4H PRN IVP For Pain 11/26/18 14:00 12/03/18 13:59 Ondansetron HCl (Zofran) 4 mg Q6H PRN IVP Nausea & Vomiting 11/26/18 14:00 12/26/18 13:59 Paroxetine HCl (Paxil) 20 mg DAILY ORAL 11/27/18 09:00 12/27/18 08:59 11/27/18 08:29 Polyethylene Glycol (Miralax) 17 gm HSPRN PRN ORAL Constipation 11/26/18 14:00 12/26/18 13:59 Tamsulosin HCl (Flomax) 0.4 mg BEDTIME ORAL 11/26/18 21:00 12/27/18 08:59 11/26/18 21:32 Zolpidem Tartrate (Ambien) 5 mg HSPRN PRN ORAL Insomnia 11/26/18 14:00 12/03/18 13:59 Emiliano Castellanos MD Nov 27, 2018 11:24
[2018-11-27 12:00] VITALS: BP 145/67
--- NOTE | 2018-11-27 12:06 | Cardiology Report ---
APPROVED REPORT EKG Measurement Heart [id number] Dual chamber pacemaker with A-pacing. Nonspecific intraventricular block T wave abnormality, consider lateral ischemia Abnormal ECG
--- NOTE | 2018-11-27 12:18 | Cardiac Electrophysiology PN ---
Subjective Subjective [id number] Objective Last 24 Hour Vital Signs Date Time Temp Pulse Resp B/P (MAP) Pulse Ox O2 Delivery O2 Flow Rate FiO2 11/27/18 09:00 Room Air 11/27/18 08:29 64 18 96 Room Air 21 11/27/18 08:00 97.6 60 18 152/70 (97) 95 11/27/18 08:00 60 11/27/18 04:00 97.3 62 18 156/68 (97) 98 11/27/18 04:00 60 11/27/18 00:35 97.7 63 18 150/74 (99) 98 11/27/18 00:00 60 11/26/18 21:01 Room Air 11/26/18 20:00 97.6 60 20 155/71 (99) 98 11/26/18 20:00 60 11/26/18 19:20 60 18 97 Room Air 21 11/26/18 17:13 164/74 11/26/18 16:00 60 11/26/18 16:00 96.6 60 21 164/74 (104) 98 11/26/18 13:45 Room Air 11/26/18 13:15 97.6 61 20 157/77 (103) 99 11/26/18 12:51 97.2 61 12 153/64 99 Room Air Intake and Output 11/26/18 11/27/18 18:59 06:59 Intake Total 30 ml 170 ml Output Total 0 ml 0 ml Balance 30 ml 170 ml Intake Oral 30 ml 170 ml Output Urine Total 0 ml 0 ml # Voids 1 Laboratory Tests Test 11/26/18 17:00 11/27/18 08:20 Troponin I 0.013 ng/mL (0.000-0.056) 0.013 ng/mL (0.000-0.056) White Blood Count 4.6 K/UL (4.8-10.8) L Red Blood Count 3.22 M/UL (4.70-6.10) L Hemoglobin 10.8 G/DL (14.2-18.0) L Hematocrit 31.5 % (42.0-52.0) L Mean Corpuscular Volume 98 FL (80-99) Mean Corpuscular Hemoglobin 33.4 PG (27.0-31.0) H Mean Corpuscular Hemoglobin Concent 34.1 G/DL (32.0-36.0) Red Cell Distribution Width 12.6 % (11.6-14.8) Platelet Count 100 K/UL (150-450) L Mean Platelet Volume 6.9 FL (6.5-10.1) Neutrophils (%) (Auto) 69.2 % (45.0-75.0) Lymphocytes (%) (Auto) 16.9 % (20.0-45.0) L Monocytes (%) (Auto) 10.3 % (1.0-10.0) H Eosinophils (%) (Auto) 2.8 % (0.0-3.0) Basophils (%) (Auto) 0.7 % (0.0-2.0) Sodium Level 135 MMOL/L (136-145) L Potassium Level 3.8 MMOL/L (3.5-5.1) Chloride Level 98 MMOL/L (98-107) Carbon Dioxide Level 25 MMOL/L (21-32) Anion Gap 12 mmol/L (5-15) Blood Urea Nitrogen 30 mg/dL (7-18) H Creatinine 5.9 MG/DL (0.55-1.30) H Estimat Glomerular Filtration Rate mL/min (>60) Glucose Level 121 MG/DL (74-106) H Hemoglobin A1c 5.8 % (4.3-6.0) Uric Acid 3.4 MG/DL (2.6-7.2) Calcium Level 9.3 MG/DL (8.5-10.1) Phosphorus Level 3.3 MG/DL (2.5-4.9) Magnesium Level 2.2 MG/DL (1.8-2.4) Iron Level 55 ug/dL (50-175) Total Iron Binding Capacity 184 ug/dL (250-450) L Percent Iron Saturation 30 % (15-50) Unsaturated Iron Binding 129 ug/dL (112-346) Ferritin 911 NG/ML (8-388) H Total Bilirubin 0.7 MG/DL (0.2-1.0) Gamma Glutamyl Transpeptidase 124 U/L (5-85) H Aspartate Amino Transf (AST/SGOT) 35 U/L (15-37) Alanine Aminotransferase (ALT/SGPT) 44 U/L (12-78) Alkaline Phosphatase 127 U/L (46-116) H Total Creatine Kinase 51 U/L (26-308) C-Reactive Protein, Quantitative 2.0 mg/dL (0.00-0.90) H Pro-B-Type Natriuretic Peptide 93314 pg/mL (0-125) H Total Protein 6.8 G/DL (6.4-8.2) Albumin 3.3 G/DL (3.4-5.0) L Globulin 3.5 g/dL Albumin/Globulin Ratio 0.9 (1.0-2.7) L Triglycerides Level 60 MG/DL (30-150) Cholesterol Level 145 MG/DL (< 200) LDL Cholesterol 88 mg/dL (<100) HDL Cholesterol 48 MG/DL (40-60) Cholesterol/HDL Ratio 3.0 (3.3-4.4) L Vitamin B12 Level 944 PG/ML (193-986) Folate 60.8 NG/ML (8.6-58.9) H Thyroid Stimulating Hormone (TSH) 0.442 uiU/mL (0.358-3.740) Hepatitis B Surface Antigen Pending Reno Pinto MD Nov 27, 2018 12:18
[2018-11-27 16:00] VITALS: BP 134/65
--- NOTE | 2018-11-27 16:03 | NUR ---
CASE MANAGEMENT:REVIEW 11/27/18 SI: ACS. ESRF 97.5 62 18 145/67 97% ON RA H/H-10.8/31.5 PLT-100 BUN+30 CR+5.9 IS: COREG PO Q12 AMIODARONE PO QD PAXIL PO QD KEPPRA PO Q12 HEPARIN SQ Q12 FLOMAX PO QHS NEURONTIN PO BID : TELEMETRY STATUS DCP: FROM [facility]
--- NOTE | 2018-11-27 16:10 | NUR ---
DISCHARGE PLANNING WAITING FOR CLEARANCE FROM DR CHAUDHARY FOR DISCHARGE
--- NOTE | 2018-11-27 18:30 | CDS Physician Query ---
Clarification is required for compliance, coding accuracy, and to reflect severity of illness for this patient Dear Dr. Samuel Date: Flower Grader/CDS Name: Kelly CDS This is a 73-year-old male from [facility], presents with what he describes as 10/10 chest pain, substernal, "Altered Mental Status / Confusion / ALOC" documented in H&P. PMH: ESRD, DM, Malnutrition Labs: BUN 30H Na: 134L Ca:9.6 Please indicate the nature and chronicity of the condition below: [] Metabolic Encephalopathy [] Toxic Encephalopathy [] Toxic - Metabolic Encephalopathy [] Encephalopathy, Other [] Other: [] Not Applicable Present on Admission: [] Yes [] No [] Clinically Undetermined Physician signature Date Please also document in your Progress Notes and/or Discharge Summary and indicate if the condition was present on admission. GINGER
[2018-11-27] MEDS ORDERED: GLUCAGON EMERGEN1 MG IJ (19:11)
[2018-11-27] MEDS ORDERED: ARTIFICIAL TEAR15 ML BOTH EYES (19:11)
[2018-11-27] MEDS ORDERED: CRANBERRY450 M4 PO (19:11)
[2018-11-27] MEDS ORDERED: CLOPIDOGREL75 MG ORAL (19:11)
[2018-11-27] MEDS ORDERED: NITROSTAT0.4 M1 SL (19:11)
[2018-11-27] MEDS ORDERED: DOCUSATE SODIU100 M2 ORAL (19:11)
[2018-11-27] MEDS ORDERED: ACETAMINOPHEN500 M3 ORAL (19:11)
[2018-11-27] MEDS ORDERED: PRO-STAT LIQUID30 ML ORAL (19:12)
--- NOTE | 2018-11-27 19:31 | NUR ---
HAND-OFF: Report given to ALICIA Santana and ALICIA Jacob. No acute s/s of distress noted.
--- NOTE | 2018-11-27 19:32 | NUR ---
NURSE NOTES: Pt received from ALICIA Gutierrez alert and oriented x2-3, person and place, primarily French-speaking. No acute s/s of distress noted. On room air. L arm AV shunt bruit and thrill auscultated and palpated, had HD today with 2 liters out. Bed in lowest position, call light and belongings within reach.
[2018-11-27 20:00] VITALS: BP 164/70
[2018-11-27] MEDS: Tamsulosin 0.4mg cap ORAL SCH (21:32)
[2018-11-28] VITALS: BP 160/70
[2018-11-28 04:00] VITALS: BP 160/72
--- NOTE | 2018-11-28 04:15 | Consultation ---
DATE OF CONSULTATION: 11/27/2018 CARDIOLOGY CONSULTATION CONSULTING PHYSICIAN: Reno Pinto M.D. REFERRING PHYSICIAN: Jethro Novoa D.O. REASON FOR CONSULTATION: Evaluation of the patient's defibrillator and cardiomyopathy. HISTORY OF PRESENT ILLNESS: The patient is a 73-year-old man with history of hypertension, diabetes, and history of coronary artery bypass graft and a dual-chamber defibrillator implantation right subclavian area as well as end-stage renal disease, on hemodialysis on Friday, Friday, and Friday via arm left AV fistula. The patient presented to the emergency room from senior care for chest pain. In the night, he did not have any shortness of breath. The patient was admitted to telemetry and a Cardiology consultation was obtained for further evaluation. His EKG showed atrially paced rhythm with old inferior wall infarct. At the time of my evaluation, the patient is undergoing hemodialysis. Denies any chest pain or shortness of breath. REVIEW OF SYSTEMS: Negative other than what is mentioned in the history of present illness. PAST MEDICAL HISTORY: As mentioned above. FAMILY HISTORY: Noncontributory. SOCIAL HISTORY: He lives in a senior care. Does smoke or drink alcohol. PHYSICAL EXAMINATION: VITAL SIGNS: Show blood pressure of 152/70, pulse 64, respirations 18, and he is afebrile. HEAD AND NECK: Shows mild JVD. LUNGS: Decreased breath sounds. CARDIOVASCULAR: Shows regular S1 and S2 with no gallop. He has sternotomy, which is intact. His defibrillator is in the right subclavian. ABDOMEN: Soft. EXTREMITIES: AV fistula in the left arm. LABORATORY AND DIAGNOSTIC DATA: Labs show white count of hemoglobin , hematocrit 31.5, and platelet count 100. Sodium is 135, potassium 3.8, BUN 30, creatinine 5.9, and glucose 121. Troponin negative x3. It is of note that the patient's preliminary echocardiogram showed ejection fraction of 55% and aortic valve area 1.1 cm sq. ASSESSMENT AND PLAN: 1. Chest pain in a patient with history of coronary artery bypass graft. Troponins are negative x3 and currently does not have anymore chest pain. 2. Congestive heart failure. BNP is more than 23,000. The patient is on hemodialysis and add Coreg to his medical regimen. 3. Status post dual-chamber defibrillator with defibrillator. At this point, we will try to find the and interrogate the ICD. 4. Paroxysmal atrial fibrillation. Currently in atrially paced rhythm on amiodarone 200 mg daily. After interrogating the ICD atrial fibrillation, but currently off anticoagulation. 5. End-stage renal disease, on hemodialysis. 6. History of seizures, on Keppra. 7. Diabetes, on insulin. Thank you very much for allowing me to participate in the care of this patient. Please do not hesitate to contact me for any questions regarding my evaluation. Reno Pinto M.D. DR: RENAE JOB#: [id number] CC:
[2018-11-28] MEDS: NovoLOG Insulin Flexpen SUBQ SCH ×4 (06:07→20:56)
--- NOTE | 2018-11-28 06:38 | Pulmonology Progress Note ---
Assessment/Plan Problems: (1) ACS (acute coronary syndrome) (2) ESRF (end stage renal failure) (3) Diabetes mellitus (4) AICD (automatic cardioverter/defibrillator) present (5) History of seizure (6) BPH (benign prostatic hyperplasia) Assessment/Plan had HD yesterday teli records reviewed: A-paced at 60's serial ekg, troponin echocardiogram cardiology evaluation. check ICD sliding scale diabetic diet seizure precaution f/u cardiology recommendations Subjective ROS Limited/Unobtainable: No Constitutional: Reports: no symptoms HEENT: Repors: no symptoms Respiratory: Reports: no symptoms Allergies: Coded Allergies: LOSARTAN (Verified Allergy, Unknown, 11/26/18) METOCLOPRAMIDE (Verified Allergy, Unknown, 11/26/18) [id number] REDUCTASE INHIBITOR (Verified Allergy, Unknown, 11/26/18) Objective Last 24 Hour Vital Signs Date Time Temp Pulse Resp B/P (MAP) Pulse Ox O2 Delivery O2 Flow Rate FiO2 11/28/18 04:00 60 11/28/18 00:00 60 11/28/18 00:00 98.0 61 20 160/70 (100) 95 11/27/18 21:35 61 164/70 11/27/18 21:00 Room Air 11/27/18 20:00 60 18 94 Room Air 21 11/27/18 20:00 60 11/27/18 20:00 98.3 61 19 164/70 (101) 100 11/27/18 16:00 97.3 60 18 134/65 (88) 96 11/27/18 16:00 60 11/27/18 12:00 97.5 62 18 145/67 (93) 97 11/27/18 12:00 60 11/27/18 09:00 Room Air 11/27/18 08:29 64 18 96 Room Air 21 11/27/18 08:00 97.6 60 18 152/70 (97) 95 11/27/18 08:00 60 Intake and Output 11/27/18 11/28/18 19:00 07:00 Intake Total 270 ml Output Total 2000 ml Balance -2000 ml 270 ml Intake Oral 270 ml Other 2000 ml General Appearance: WD/WN HEENT: normocephalic, atraumatic Respiratory/Chest: chest wall non-tender, lungs clear Cardiovascular: normal peripheral pulses, normal rate Abdomen: normal bowel sounds, soft, non tender Genitourinary: normal external genitalia Extremities: no cyanosis Skin: no rash Neurologic/Psychiatric: e business manager II-XII grossly normal Microbiology Date/Time Source Procedure Growth Status 11/26/18 11:16 Nasal Nares MRSA Culture - Final NO METHICILLIN RESISTANT STAPH AUREUS... Complete 11/26/18 11:16 Rectum VRE Culture - Final NO VANCOMYCIN RESISTANT ENTEROCOCCUS ... Complete 11/26/18 11:16 Rectum - Final NO CARBAPENEM-RESISTANT ENTEROBACTERI... Complete Laboratory Tests 11/27/18 08:20: White Blood Count 4.6L, Red Blood Count 3.22L, Hemoglobin 10.8L, Hematocrit 31.5L, Mean Corpuscular Volume 98, Mean Corpuscular Hemoglobin 33.4H, Mean Corpuscular Hemoglobin Concent 34.1, Red Cell Distribution Width 12.6, Platelet Count 100L, Mean Platelet Volume 6.9, Neutrophils (%) (Auto) 69.2, Lymphocytes ( %) (Auto) 16.9L, Monocytes (%) (Auto) 10.3H, Eosinophils (%) (Auto) 2.8, Basophils (%) (Auto) 0.7, Sodium Level 135L, Potassium Level 3.8, Chloride Level 98, Carbon Dioxide Level 25, Anion Gap 12, Blood Urea Nitrogen 30H, Creatinine 5.9H, Estimat Glomerular Filtration Rate , Glucose Level 121H, Hemoglobin A1c 5.8, Uric Acid 3.4, Calcium Level 9.3, Phosphorus Level 3.3, Magnesium Level 2.2, Iron Level 55, Total Iron Binding Capacity 184L, Percent Iron Saturation 30, Unsaturated Iron Binding 129, Ferritin 911H, Total Bilirubin 0.7, Gamma Glutamyl Transpeptidase 124H, Aspartate Amino Transf (AST/ SGOT) 35, Alanine Aminotransferase (ALT/SGPT) 44, Alkaline Phosphatase 127H, Total Creatine Kinase 51, Troponin I 0.013, C-Reactive Protein, Quantitative 2.0H, Pro-B-Type Natriuretic Peptide 69041D, Total Protein 6.8, Albumin 3.3L, Globulin 3.5, Albumin/Globulin Ratio 0.9L, Triglycerides Level 60, Cholesterol Level 145, LDL Cholesterol 88, HDL Cholesterol 48, Cholesterol/HDL Ratio 3.0L, Vitamin B12 Level 944, Folate 60.8H, Thyroid Stimulating Hormone (TSH) 0.442, Hepatitis B Surface Antigen [Pending] 11/27/18 14:50: Urine Eosinophils [Pending] Current Medications Medications (Trade) Dose Ordered Sig/Fernando Route PRN Reason Start Time Stop Time Status Last Admin Dose Admin Acetaminophen (Tylenol) 650 mg Q4H PRN ORAL fever 11/26/18 14:00 12/26/18 13:59 Albuterol/ Ipratropium (Albuterol/ Ipratropium) 3 ml Q6HRT PRN HHN dyspnea 11/26/18 14:00 12/01/18 13:59 Amiodarone HCl (Cordarone) 200 mg DAILY ORAL 11/27/18 09:00 12/27/18 08:59 11/27/18 08:31 Carvedilol (Coreg) 3.125 mg EVERY 12 HOURS ORAL 11/27/18 21:00 12/27/18 20:59 11/27/18 21:35 Clonidine HCl (Catapres Tab) 0.1 mg Q4H PRN ORAL For High Blood Pressure 11/26/18 14:00 12/26/18 13:59 11/26/18 17:13 Dextrose (Dextrose 50%) 25 ml Q30M PRN IV Hypoglycemia 11/26/18 14:00 12/26/18 13:53 Dextrose (Dextrose 50%) 50 ml Q30M PRN IV hypoglycemia 11/26/18 14:00 12/26/18 13:59 Gabapentin (Neurontin) 100 mg BID ORAL 11/26/18 18:00 12/26/18 17:59 11/27/18 17:23 Heparin Sodium (Porcine) (Heparin 5000 units/ml) 5,000 units EVERY 12 HOURS SUBQ 11/26/18 21:00 12/26/18 20:59 Insulin Aspart (NovoLOG) BEFORE MEALS AND HS SUBQ 11/26/18 16:30 12/26/18 16:29 Levetiracetam (Keppra) 500 mg EVERY 12 HOURS ORAL 11/26/18 21:00 12/26/18 20:59 11/27/18 21:32 Morphine Sulfate (Morphine Sulfate) 1 mg Q4H PRN IVP For Pain 11/26/18 14:00 12/03/18 13:59 Ondansetron HCl (Zofran) 4 mg Q6H PRN IVP Nausea & Vomiting 11/26/18 14:00 12/26/18 13:59 Paroxetine HCl (Paxil) 20 mg DAILY ORAL 11/27/18 09:00 12/27/18 08:59 11/27/18 08:29 Polyethylene Glycol (Miralax) 17 gm HSPRN PRN ORAL Constipation 11/26/18 14:00 12/26/18 13:59 Tamsulosin HCl (Flomax) 0.4 mg BEDTIME ORAL 11/26/18 21:00 12/27/18 08:59 11/27/18 21:32 Zolpidem Tartrate (Ambien) 5 mg HSPRN PRN ORAL Insomnia 11/26/18 14:00 12/03/18 13:59 Emiliano Castellanos MD Nov 28, 2018 06:38
[2018-11-28 07:01] LABS: HEMATOCRIT 34.2 % (42.0-52.0); HEMOGLOBIN 11.3 G/DL (14.2-18.0); MEAN CORPUSCULAR VOLUME 101 FL (80-99); PLATELET COUNT 94 K/UL (150-450); RED CELL DISTRIBUTION WIDTH 12.5 % (11.6-14.8); WHITE BLOOD COUNT 4.9 K/UL (4.8-10.8)
--- NOTE | 2018-11-28 07:36 | NUR ---
HAND-OFF: Report given to ALICIA Mukherjee.
--- NOTE | 2018-11-28 07:47 | NUR ---
NURSE NOTES: Pt sitting in chair eating breakfast, NO complaints of pain, IV intact, able to ambulate without supervision, Ox4 calm and cooperative, kiswahili speaker, left arm bruit and thrill present, pt on room air, pacemaker noticed, no s/s of distress or sob noted
[2018-11-28 08:00] VITALS: BP 156/65
[2018-11-28 08:08] LABS: ANION GAP 9 mmol/L (5-15); BLOOD UREA NITROGEN 22 mg/dL (7-18); CALCIUM 8.9 MG/DL (8.5-10.1); CARBON DIOXIDE 31 MMOL/L (21-32); CHLORIDE 96 MMOL/L (98-107); CREATININE 5.1 MG/DL (0.55-1.30); POTASSIUM 3.5 MMOL/L (3.5-5.1); SODIUM 136 MMOL/L (136-145)
[2018-11-28] MEDS: Heparin 5000 units/ml inj SUBQ SCH ×2 (09:00→20:52)
[2018-11-28] MEDS: PARoxetine 20mg tab ORAL SCH (09:13)
[2018-11-28] MEDS: Amiodarone 200mg tab ORAL SCH (09:13)
--- NOTE | 2018-11-28 09:26 | Cardiology Progress Note ---
Assessment/Plan Status: stable Assessment/Plan ASSESSMENT AND PLAN: 1. Chest pain in a patient with history of coronary artery bypass graft. Troponins are negative x3 and currently does not have anymore chest pain. Outpatient stress test 2. Congestive heart failure. BNP is more than 23,000. The patient is on hemodialysis and add Coreg to his medical regimen. If BP tolerated add hydralazine/imdur 3. Status post dual-chamber defibrillator, interrogation per EP 4. Paroxysmal atrial fibrillation. Currently in atrially paced rhythm on amiodarone 200 mg daily. Off anticoagulation, continue to monitor 5. End-stage renal disease, on hemodialysis. 6. History of seizures, on Keppra. 7. Diabetes, on insulin. Objective Last 24 Hour Vital Signs Date Time Temp Pulse Resp B/P (MAP) Pulse Ox O2 Delivery O2 Flow Rate FiO2 11/28/18 09:00 60 156/65 11/28/18 08:15 Room Air 11/28/18 08:00 98.8 60 18 156/65 (95) 96 11/28/18 04:00 60 11/28/18 04:00 98.3 61 20 160/72 (101) 97 11/28/18 00:00 60 11/28/18 00:00 98.0 61 20 160/70 (100) 95 11/27/18 21:35 61 164/70 11/27/18 21:00 Room Air 11/27/18 20:00 60 18 94 Room Air 21 11/27/18 20:00 60 11/27/18 20:00 98.3 61 19 164/70 (101) 100 11/27/18 16:00 97.3 60 18 134/65 (88) 96 11/27/18 16:00 60 11/27/18 12:00 97.5 62 18 145/67 (93) 97 11/27/18 12:00 60 Intake and Output 11/27/18 11/28/18 19:00 07:00 Intake Total 270 ml Output Total 2000 ml Balance -2000 ml 270 ml Intake Oral 270 ml Other 2000 ml Laboratory Tests Test 11/27/18 14:50 11/28/18 06:32 Urine Eosinophils Pending White Blood Count 4.9 K/UL (4.8-10.8) Red Blood Count 3.40 M/UL (4.70-6.10) L Hemoglobin 11.3 G/DL (14.2-18.0) L Hematocrit 34.2 % (42.0-52.0) L Mean Corpuscular Volume 101 FL (80-99) H Mean Corpuscular Hemoglobin 33.3 PG (27.0-31.0) H Mean Corpuscular Hemoglobin Concent 33.1 G/DL (32.0-36.0) Red Cell Distribution Width 12.5 % (11.6-14.8) Platelet Count 94 K/UL (150-450) L Mean Platelet Volume 8.3 FL (6.5-10.1) Neutrophils (%) (Auto) % (45.0-75.0) Lymphocytes (%) (Auto) % (20.0-45.0) Monocytes (%) (Auto) % (1.0-10.0) Eosinophils (%) (Auto) % (0.0-3.0) Basophils (%) (Auto) % (0.0-2.0) Differential Total Cells Counted 100 Neutrophils % (Manual) 70 % (45-75) Lymphocytes % (Manual) 22 % (20-45) Monocytes % (Manual) 7 % (1-10) Eosinophils % (Manual) 1 % (0-3) Basophils % (Manual) 0 % (0-2) Band Neutrophils 0 % (0-8) Platelet Estimate Decreased L Platelet Morphology Normal Macrocytosis 1+ Sodium Level 136 MMOL/L (136-145) Potassium Level 3.5 MMOL/L (3.5-5.1) Chloride Level 96 MMOL/L (98-107) L Carbon Dioxide Level 31 MMOL/L (21-32) Anion Gap 9 mmol/L (5-15) Blood Urea Nitrogen 22 mg/dL (7-18) H Creatinine 5.1 MG/DL (0.55-1.30) H Estimat Glomerular Filtration Rate mL/min (>60) Glucose Level 93 MG/DL (74-106) Calcium Level 8.9 MG/DL (8.5-10.1) Troponin I 0.026 ng/mL (0.000-0.056) Microbiology Date/Time Source Procedure Growth Status 11/26/18 11:16 Nasal Nares MRSA Culture - Final NO METHICILLIN RESISTANT STAPH AUREUS... Complete 11/26/18 11:16 Rectum VRE Culture - Final NO VANCOMYCIN RESISTANT ENTEROCOCCUS ... Complete 11/26/18 11:16 Rectum - Final NO CARBAPENEM-RESISTANT ENTEROBACTERI... Complete Bernard Green MD Nov 28, 2018 09:26
--- NOTE | 2018-11-28 10:08 | General Progress Note ---
Assessment/Plan Problem List: (1) ACS (acute coronary syndrome) ICD Codes: I24.9 - Acute ischemic heart disease, unspecified SNOMED: 234798743 (2) ESRF (end stage renal failure) ICD Codes: N18.6 - End stage renal disease SNOMED: 79976880 (3) Diabetes mellitus ICD Codes: E11.9 - Type 2 diabetes mellitus without complications SNOMED: 95613161 (4) History of seizure ICD Codes: Z87.898 - Personal history of other specified conditions SNOMED: 814381325 (5) BPH (benign prostatic hyperplasia) ICD Codes: N40.0 - Benign prostatic hyperplasia without lower urinary tract symptoms SNOMED: 399896910 Status: stable, progressing Assessment/Plan: pt diet pain control cardio f/u cbc bmp am dc plan aru eval Subjective Constitutional: Reports: weakness Allergies: Coded Allergies: LOSARTAN (Verified Allergy, Unknown, 11/26/18) METOCLOPRAMIDE (Verified Allergy, Unknown, 11/26/18) [id number] REDUCTASE INHIBITOR (Verified Allergy, Unknown, 11/26/18) All Systems: reviewed and negative except above Subjective decreased chest pain Objective Last 24 Hour Vital Signs Date Time Temp Pulse Resp B/P (MAP) Pulse Ox O2 Delivery O2 Flow Rate FiO2 11/28/18 09:00 60 156/65 11/28/18 08:15 Room Air 11/28/18 08:00 98.8 60 18 156/65 (95) 96 11/28/18 04:00 60 11/28/18 04:00 98.3 61 20 160/72 (101) 97 11/28/18 00:00 60 11/28/18 00:00 98.0 61 20 160/70 (100) 95 11/27/18 21:35 61 164/70 11/27/18 21:00 Room Air 11/27/18 20:00 60 18 94 Room Air 21 11/27/18 20:00 60 11/27/18 20:00 98.3 61 19 164/70 (101) 100 11/27/18 16:00 97.3 60 18 134/65 (88) 96 11/27/18 16:00 60 11/27/18 12:00 97.5 62 18 145/67 (93) 97 11/27/18 12:00 60 Intake and Output 11/27/18 11/28/18 19:00 07:00 Intake Total 270 ml Output Total 2000 ml Balance -2000 ml 270 ml Intake Oral 270 ml Other 2000 ml Laboratory Tests 11/27/18 14:50: Urine Eosinophils [Pending] 11/28/18 06:32: White Blood Count 4.9, Red Blood Count 3.40L, Hemoglobin 11.3L, Hematocrit 34.2L , Mean Corpuscular Volume 101H, Mean Corpuscular Hemoglobin 33.3H, Mean Corpuscular Hemoglobin Concent 33.1, Red Cell Distribution Width 12.5, Platelet Count 94L, Mean Platelet Volume 8.3, Neutrophils (%) (Auto) , Lymphocytes (%) ( Auto) , Monocytes (%) (Auto) , Eosinophils (%) (Auto) , Basophils (%) (Auto) , Differential Total Cells Counted 100, Neutrophils % (Manual) 70, Lymphocytes % ( Manual) 22, Monocytes % (Manual) 7, Eosinophils % (Manual) 1, Basophils % ( Manual) 0, Band Neutrophils 0, Platelet Estimate DecreasedL, Platelet Morphology Normal, Macrocytosis 1+, Sodium Level 136, Potassium Level 3.5, Chloride Level 96L, Carbon Dioxide Level 31, Anion Gap 9, Blood Urea Nitrogen 22H, Creatinine 5.1H, Estimat Glomerular Filtration Rate , Glucose Level 93, Calcium Level 8.9, Troponin I 0.026 Height (Feet): 5 Height (Inches): 6.00 Weight (Pounds): 146 General Appearance: lethargic EENT: normal ENT inspection Neck: normal alignment Cardiovascular: normal peripheral pulses, normal rate, regular rhythm Respiratory/Chest: chest wall non-tender, lungs clear, normal breath sounds Abdomen: normal bowel sounds, non tender, soft Edema: no edema noted Arm (L), no edema noted Arm (R), no edema noted Leg (L), no edema noted Leg (R), no edema noted Pedal (L), no edema noted Pedal (R), no edema noted Generalized Neurologic: motor weakness Skin: normal pigmentation, warm/dry Jethro Novoa DO Nov 28, 2018 10:08
--- NOTE | 2018-11-28 10:52 | Nephrology Progress Note ---
Assessment/Plan Problem List: (1) ESRF (end stage renal failure) (2) BPH (benign prostatic hyperplasia) (3) ACS (acute coronary syndrome) (4) Diabetes mellitus Assessment ACS ESRD HTN BPH DM Plan HD 11/27 next 11/30 BP and BS control per cardiology Subjective ROS Limited/Unobtainable: No Constitutional: Reports: malaise Objective Objective Last 24 Hour Vital Signs Date Time Temp Pulse Resp B/P (MAP) Pulse Ox O2 Delivery O2 Flow Rate FiO2 11/28/18 09:00 60 156/65 11/28/18 08:15 Room Air 11/28/18 08:00 98.8 60 18 156/65 (95) 96 11/28/18 07:45 60 11/28/18 04:00 60 11/28/18 04:00 98.3 61 20 160/72 (101) 97 11/28/18 00:00 60 11/28/18 00:00 98.0 61 20 160/70 (100) 95 11/27/18 21:35 61 164/70 11/27/18 21:00 Room Air 11/27/18 20:00 60 18 94 Room Air 21 11/27/18 20:00 60 11/27/18 20:00 98.3 61 19 164/70 (101) 100 11/27/18 16:00 97.3 60 18 134/65 (88) 96 11/27/18 16:00 60 11/27/18 12:00 97.5 62 18 145/67 (93) 97 11/27/18 12:00 60 Intake and Output 11/27/18 11/28/18 19:00 07:00 Intake Total 270 ml Output Total 2000 ml Balance -2000 ml 270 ml Intake Oral 270 ml Other 2000 ml Laboratory Tests 11/27/18 14:50: Urine Eosinophils [Pending] 11/28/18 06:32: White Blood Count 4.9, Red Blood Count 3.40L, Hemoglobin 11.3L, Hematocrit 34.2L , Mean Corpuscular Volume 101H, Mean Corpuscular Hemoglobin 33.3H, Mean Corpuscular Hemoglobin Concent 33.1, Red Cell Distribution Width 12.5, Platelet Count 94L, Mean Platelet Volume 8.3, Neutrophils (%) (Auto) , Lymphocytes (%) ( Auto) , Monocytes (%) (Auto) , Eosinophils (%) (Auto) , Basophils (%) (Auto) , Differential Total Cells Counted 100, Neutrophils % (Manual) 70, Lymphocytes % ( Manual) 22, Monocytes % (Manual) 7, Eosinophils % (Manual) 1, Basophils % ( Manual) 0, Band Neutrophils 0, Platelet Estimate DecreasedL, Platelet Morphology Normal, Macrocytosis 1+, Sodium Level 136, Potassium Level 3.5, Chloride Level 96L, Carbon Dioxide Level 31, Anion Gap 9, Blood Urea Nitrogen 22H, Creatinine 5.1H, Estimat Glomerular Filtration Rate , Glucose Level 93, Calcium Level 8.9, Troponin I 0.026 Height (Feet): 5 Height (Inches): 6.00 Weight (Pounds): 146 General Appearance: no apparent distress Objective no change Manolo Grimes MD Nov 28, 2018 10:52
[2018-11-28 12:00] VITALS: BP 161/70
--- NOTE | 2018-11-28 13:11 | NUR ---
DISCHARGE PLANNING: NOTE CLINICALS FAXED TO [facility] FOR REVIEW
--- NOTE | 2018-11-28 13:41 | NUR ---
NURSE NOTES: Received pt from ALICIA Mukherjee alert and oriented x4 with no acute s/s of distress noted. IV site asymptomatic and patent. Bed in lowest position, call light and belongings within reach.
[2018-11-28 16:00] VITALS: BP 133/72
--- NOTE | 2018-11-28 19:28 | NUR ---
HAND-OFF: Report given to ALICIA Bustos. No acute s/s of distress noted.
--- NOTE | 2018-11-28 19:30 | NUR ---
NURSE NOTES: Received report from Shannon Saba RN. Patient in bed AAO X4 Kazakh speaking with minimal Mauritian noted. No complaints of acute pain or distress noted at this time. Kept clean, dry, and comfortable in bed and placed on continuous cardiac monitoring per protocol. IV line intact and patent SL with LA AV shunt present for HD use. Patient is anuric but still offered urinal PRN at bedside. Needs and wants anticipated and attended. Will continue plan of care and monitor for any changes noted. Order for transfer to [facility] [place]; awaiting bed availability. HD scheduled on 11/30/18 with VIP Noted RC AICD. A-paced at this time
--- NOTE | 2018-11-28 19:44 | NUR ---
SCRAP BURNER Co-Signature Notes: Patient's chart reviewed. SCRAP BURNER notes reviewed and approved Addendum: 11/28/18 at 1945 by MG TORRES PT Amended: Links added.
[2018-11-28 20:00] VITALS: BP 142/73
[2018-11-28] MEDS: Tamsulosin 0.4mg cap ORAL SCH (20:55)
[2018-11-29] VITALS (7 sets, daily range): BP systolic 132–153; BP diastolic 53–89
--- NOTE | 2018-11-29 02:20 | NUR ---
NURSE NOTES: Patient in bed asleep with no S/S of distress noted at this time. Will continue to monitor.
[2018-11-29] MEDS: NovoLOG Insulin Flexpen SUBQ SCH ×4 (05:33→22:34)
--- NOTE | 2018-11-29 06:31 | Pulmonology Progress Note ---
Assessment/Plan Problems: (1) ACS (acute coronary syndrome) (2) ESRF (end stage renal failure) (3) Diabetes mellitus (4) AICD (automatic cardioverter/defibrillator) present (5) History of seizure (6) BPH (benign prostatic hyperplasia) Assessment/Plan had HD yesterday teli records reviewed: A-paced at 60's serial ekg, troponin echocardiogram cardiology evaluation. check ICD sliding scale diabetic diet seizure precaution f/u cardiology recommendations Subjective ROS Limited/Unobtainable: No Constitutional: Reports: no symptoms HEENT: Repors: no symptoms Respiratory: Reports: no symptoms Allergies: Coded Allergies: LOSARTAN (Verified Allergy, Unknown, 11/26/18) METOCLOPRAMIDE (Verified Allergy, Unknown, 11/26/18) [id number] REDUCTASE INHIBITOR (Verified Allergy, Unknown, 11/26/18) Objective Last 24 Hour Vital Signs Date Time Temp Pulse Resp B/P (MAP) Pulse Ox O2 Delivery O2 Flow Rate FiO2 11/29/18 04:00 98.0 61 20 132/65 (87) 99 11/29/18 00:00 97.3 61 20 152/70 (97) 97 11/28/18 21:07 68 18 95 Room Air 21 11/28/18 21:00 Room Air 11/28/18 20:54 61 142/73 11/28/18 20:00 98.4 61 20 142/73 (96) 98 11/28/18 16:00 97.8 62 18 133/72 (92) 97 11/28/18 16:00 60 11/28/18 12:00 60 11/28/18 12:00 97.4 61 20 161/70 (100) 98 11/28/18 09:00 60 156/65 11/28/18 08:15 Room Air 11/28/18 08:00 98.8 60 18 156/65 (95) 96 11/28/18 07:45 60 Intake and Output 11/28/18 11/29/18 19:00 07:00 Intake Total 240 ml 240 ml Balance 240 ml 240 ml Intake Oral 240 ml 240 ml General Appearance: WD/WN HEENT: normocephalic, atraumatic Respiratory/Chest: chest wall non-tender, lungs clear Cardiovascular: normal peripheral pulses, normal rate Abdomen: normal bowel sounds, soft, non tender Genitourinary: normal external genitalia Skin: no rash Neurologic/Psychiatric: grade foreman II-XII grossly normal, no motor/sensory deficits Lymphatic: no neck adenopathy Microbiology Date/Time Source Procedure Growth Status 11/26/18 11:16 Nasal Nares MRSA Culture - Final NO METHICILLIN RESISTANT STAPH AUREUS... Complete 11/26/18 11:16 Rectum VRE Culture - Final NO VANCOMYCIN RESISTANT ENTEROCOCCUS ... Complete 11/26/18 11:16 Rectum - Final NO CARBAPENEM-RESISTANT ENTEROBACTERI... Complete Laboratory Tests 11/28/18 06:32: White Blood Count 4.9, Red Blood Count 3.40L, Hemoglobin 11.3L, Hematocrit 34.2L , Mean Corpuscular Volume 101H, Mean Corpuscular Hemoglobin 33.3H, Mean Corpuscular Hemoglobin Concent 33.1, Red Cell Distribution Width 12.5, Platelet Count 94L, Mean Platelet Volume 8.3, Neutrophils (%) (Auto) , Lymphocytes (%) ( Auto) , Monocytes (%) (Auto) , Eosinophils (%) (Auto) , Basophils (%) (Auto) , Differential Total Cells Counted 100, Neutrophils % (Manual) 70, Lymphocytes % ( Manual) 22, Monocytes % (Manual) 7, Eosinophils % (Manual) 1, Basophils % ( Manual) 0, Band Neutrophils 0, Platelet Estimate DecreasedL, Platelet Morphology Normal, Macrocytosis 1+, Sodium Level 136, Potassium Level 3.5, Chloride Level 96L, Carbon Dioxide Level 31, Anion Gap 9, Blood Urea Nitrogen 22H, Creatinine 5.1H, Estimat Glomerular Filtration Rate , Glucose Level 93, Calcium Level 8.9, Troponin I 0.026 Current Medications Medications (Trade) Dose Ordered Sig/Fernando Route PRN Reason Start Time Stop Time Status Last Admin Dose Admin Acetaminophen (Tylenol) 650 mg Q4H PRN ORAL fever 11/26/18 14:00 12/26/18 13:59 Albuterol/ Ipratropium (Albuterol/ Ipratropium) 3 ml Q6HRT PRN HHN dyspnea 11/26/18 14:00 12/01/18 13:59 Amiodarone HCl (Cordarone) 200 mg DAILY ORAL 11/27/18 09:00 12/27/18 08:59 11/28/18 09:13 Carvedilol (Coreg) 3.125 mg EVERY 12 HOURS ORAL 11/27/18 21:00 12/27/18 20:59 11/28/18 20:54 Clonidine HCl (Catapres Tab) 0.1 mg Q4H PRN ORAL For High Blood Pressure 11/26/18 14:00 12/26/18 13:59 11/26/18 17:13 Dextrose (Dextrose 50%) 25 ml Q30M PRN IV Hypoglycemia 11/26/18 14:00 12/26/18 13:53 Dextrose (Dextrose 50%) 50 ml Q30M PRN IV hypoglycemia 11/26/18 14:00 12/26/18 13:59 Gabapentin (Neurontin) 100 mg BID ORAL 11/26/18 18:00 12/26/18 17:59 11/28/18 17:24 Heparin Sodium (Porcine) (Heparin 5000 units/ml) 5,000 units EVERY 12 HOURS SUBQ 11/26/18 21:00 12/26/18 20:59 Insulin Aspart (NovoLOG) BEFORE MEALS AND HS SUBQ 11/26/18 16:30 12/26/18 16:29 11/28/18 20:56 Levetiracetam (Keppra) 500 mg EVERY 12 HOURS ORAL 11/26/18 21:00 12/26/18 20:59 11/28/18 20:55 Morphine Sulfate (Morphine Sulfate) 1 mg Q4H PRN IVP For Pain 11/26/18 14:00 12/03/18 13:59 Ondansetron HCl (Zofran) 4 mg Q6H PRN IVP Nausea & Vomiting 11/26/18 14:00 12/26/18 13:59 Paroxetine HCl (Paxil) 20 mg DAILY ORAL 11/27/18 09:00 12/27/18 08:59 11/28/18 09:13 Polyethylene Glycol (Miralax) 17 gm HSPRN PRN ORAL Constipation 11/26/18 14:00 12/26/18 13:59 Tamsulosin HCl (Flomax) 0.4 mg BEDTIME ORAL 11/26/18 21:00 12/27/18 08:59 11/28/18 20:55 Zolpidem Tartrate (Ambien) 5 mg HSPRN PRN ORAL Insomnia 11/26/18 14:00 12/03/18 13:59 Emiliano Castellanos MD Nov 29, 2018 06:31
--- NOTE | 2018-11-29 07:20 | NUR ---
NURSE NOTES: Called and left message to Quinn Grimes MD. regarding Eosinophil urine collection (X3 series). patient is anuric, awaiting for order clarification. Will continue to monitor.
--- NOTE | 2018-11-29 07:28 | NUR ---
HAND-OFF: Report given to Jose Neff RN. Patient in bed in stable condition. Endorsed plan of care.
--- NOTE | 2018-11-29 07:38 | NUR ---
NURSE NOTES: received patient report from maya gonsalez. patient is on bed awake. eating breakfast. comfortable. no report of arrythmias last night. on RA. bed is low and locked for safety. will follow plan of care.
--- NOTE | 2018-11-29 08:00 | NUR ---
NURSE NOTES: per conversation with the patient, he is still producing a little urine. previous nurse left a message to dr banks regarding urine collection for eosinophils. awaits callback and new order. will continue to monitor.
--- NOTE | 2018-11-29 08:04 | General Progress Note ---
Assessment/Plan Problem List: (1) ACS (acute coronary syndrome) ICD Codes: I24.9 - Acute ischemic heart disease, unspecified SNOMED: 765278920 (2) ESRF (end stage renal failure) ICD Codes: N18.6 - End stage renal disease SNOMED: 62413784 (3) Diabetes mellitus ICD Codes: E11.9 - Type 2 diabetes mellitus without complications SNOMED: 83331752 (4) History of seizure ICD Codes: Z87.898 - Personal history of other specified conditions SNOMED: 790289697 (5) BPH (benign prostatic hyperplasia) ICD Codes: N40.0 - Benign prostatic hyperplasia without lower urinary tract symptoms SNOMED: 193427920 Status: stable, progressing Assessment/Plan: pt diet pain control cardio f/u cbc bmp am dc plan snf if clear Subjective Constitutional: Reports: weakness Allergies: Coded Allergies: LOSARTAN (Verified Allergy, Unknown, 11/26/18) METOCLOPRAMIDE (Verified Allergy, Unknown, 11/26/18) [id number] REDUCTASE INHIBITOR (Verified Allergy, Unknown, 11/26/18) All Systems: reviewed and negative except above Subjective decreased chest pain Objective Last 24 Hour Vital Signs Date Time Temp Pulse Resp B/P (MAP) Pulse Ox O2 Delivery O2 Flow Rate FiO2 11/29/18 04:00 98.0 61 20 132/65 (87) 99 11/29/18 00:00 97.3 61 20 152/70 (97) 97 11/28/18 21:07 68 18 95 Room Air 21 11/28/18 21:00 Room Air 11/28/18 20:54 61 142/73 11/28/18 20:00 98.4 61 20 142/73 (96) 98 11/28/18 16:00 97.8 62 18 133/72 (92) 97 11/28/18 16:00 60 11/28/18 12:00 60 11/28/18 12:00 97.4 61 20 161/70 (100) 98 11/28/18 09:00 60 156/65 11/28/18 08:15 Room Air Intake and Output 11/28/18 11/29/18 19:00 07:00 Intake Total 240 ml 240 ml Balance 240 ml 240 ml Intake Oral 240 ml 240 ml Height (Feet): 5 Height (Inches): 6.00 Weight (Pounds): 142 General Appearance: lethargic EENT: normal ENT inspection Neck: normal alignment Cardiovascular: normal peripheral pulses, normal rate, regular rhythm Respiratory/Chest: chest wall non-tender, lungs clear, normal breath sounds Abdomen: normal bowel sounds, non tender, soft Extremities: normal inspection Edema: no edema noted Arm (L), no edema noted Arm (R), no edema noted Leg (L), no edema noted Leg (R), no edema noted Pedal (L), no edema noted Pedal (R), no edema noted Generalized Neurologic: responsive, motor weakness Skin: normal pigmentation, warm/dry Jethro Novoa DO Nov 29, 2018 08:04
[2018-11-29] MEDS: PARoxetine 20mg tab ORAL SCH (08:15)
[2018-11-29] MEDS: Amiodarone 200mg tab ORAL SCH (08:15)
[2018-11-29] MEDS: Heparin 5000 units/ml inj SUBQ SCH ×2 (08:16→20:45)
--- NOTE | 2018-11-29 09:21 | Cardiology Progress Note ---
Assessment/Plan Status: stable Assessment/Plan ASSESSMENT AND PLAN: 1. Chest pain in a patient with history of coronary artery bypass graft. Troponins are negative x3 and currently does not have anymore chest pain. Outpatient stress test 2. Congestive heart failure. BNP is more than 23,000. The patient is on hemodialysis and add Coreg to his medical regimen. If BP tolerated add hydralazine/imdur 3. Status post dual-chamber defibrillator, interrogation per EP 4. Paroxysmal atrial fibrillation. Currently in atrially paced rhythm on amiodarone 200 mg daily. Off anticoagulation, continue to monitor 5. End-stage renal disease, on hemodialysis. 6. History of seizures, on Keppra. 7. Diabetes, on insulin. Subjective Cardiovascular: Reports: no symptoms Respiratory: Reports: no symptoms Gastrointestinal/Abdominal: Reports: no symptoms Genitourinary: Reports: no symptoms Subjective Coverage for [place] No acute events, no chest pain no shortness of breath, no arrhythmias Objective Last 24 Hour Vital Signs Date Time Temp Pulse Resp B/P (MAP) Pulse Ox O2 Delivery O2 Flow Rate FiO2 11/29/18 09:00 Room Air 11/29/18 08:15 61 138/73 11/29/18 08:00 97.4 61 18 138/73 (94) 99 11/29/18 04:00 98.0 61 20 132/65 (87) 99 11/29/18 00:00 97.3 61 20 152/70 (97) 97 11/28/18 21:07 68 18 95 Room Air 21 11/28/18 21:00 Room Air 11/28/18 20:54 61 142/73 11/28/18 20:00 98.4 61 20 142/73 (96) 98 11/28/18 16:00 97.8 62 18 133/72 (92) 97 11/28/18 16:00 60 11/28/18 12:00 60 11/28/18 12:00 97.4 61 20 161/70 (100) 98 General Appearance: no apparent distress, alert EENT: PERRL/EOMI, normal ENT inspection, TMs normal, pharynx normal Neck: non-tender, normal alignment, supple, normal inspection, no JVD Rhythm: NSR Cardiovascular: normal peripheral pulses, normal rate, regular rhythm Respiratory/Chest: chest wall non-tender, lungs clear, normal breath sounds Abdomen: normal bowel sounds, non tender, soft, no organomegaly, no mass Extremities: normal range of motion, non-tender Neurologic: pipe turner II-XII grossly normal, no motor/sensory deficits Intake and Output 11/28/18 11/29/18 19:00 07:00 Intake Total 240 ml 240 ml Balance 240 ml 240 ml Intake Oral 240 ml 240 ml Microbiology Date/Time Source Procedure Growth Status 11/26/18 11:16 Nasal Nares MRSA Culture - Final NO METHICILLIN RESISTANT STAPH AUREUS... Complete 11/26/18 11:16 Rectum VRE Culture - Final NO VANCOMYCIN RESISTANT ENTEROCOCCUS ... Complete 11/26/18 11:16 Rectum - Final NO CARBAPENEM-RESISTANT ENTEROBACTERI... Complete Bernard Green MD Nov 29, 2018 09:21
--- NOTE | 2018-11-29 09:48 | NUR ---
NURSE NOTES: spoke with jorge phleb, patient refused blood draw twice already since this AM. will continue to monitor.
--- NOTE | 2018-11-29 10:07 | NUR ---
NURSE NOTES: per dr Ludwig Bailey patient to [facility] if they accept otherwise SNF.
--- NOTE | 2018-11-29 10:09 | NUR ---
NURSE NOTES: per dr Ludwig Novoa, trey patient to [facility] if [facility] accept, otherwise SNF and let him know. and dr Ludwig Novoa also made aware that patient refused labs this AM.
--- NOTE | 2018-11-29 15:00 | NUR ---
TRANSFER TO FLOOR: Patient transferred to 308-1, per dr chatterjee order. Report given to eric gonsalez. Belongings and medications given to rn.
--- NOTE | 2018-11-29 15:57 | NUR ---
NURSE NOTES: Received patient from [facility] to room 308 bed one,patien t is alert to name,respirations unlabored.Left arm AV shunt with strong bruit and thrill.Saline lock to the right hand intact.Side rails are padded,bed alarm is on,call light within reach.
[2018-11-29] MEDS ORDERED: Morphine Sulfate 2mg/ml Inj(IV/IM USE ONLY) IVP PRN (16:00)
[2018-11-29] MEDS ORDERED: Albuterol/Ipratropium 3ml neb HHN PRN (16:00)
--- NOTE | 2018-11-29 16:00 | Nephrology Progress Note ---
Assessment/Plan Problem List: (1) ESRF (end stage renal failure) (2) BPH (benign prostatic hyperplasia) (3) ACS (acute coronary syndrome) (4) Diabetes mellitus Assessment ACS ESRD HTN BPH DM Plan HD 11/27 next 11/30 BP and BS control per cardiology Subjective ROS Limited/Unobtainable: No Constitutional: Reports: malaise Objective Objective Last 24 Hour Vital Signs Date Time Temp Pulse Resp B/P (MAP) Pulse Ox O2 Delivery O2 Flow Rate FiO2 11/29/18 12:00 99.0 91 18 133/68 (89) 99 11/29/18 10:02 64 18 99 Room Air 21 11/29/18 09:00 Room Air 11/29/18 08:15 61 138/73 11/29/18 08:00 97.4 61 18 138/73 (94) 99 11/29/18 04:00 98.0 61 20 132/65 (87) 99 11/29/18 00:00 97.3 61 20 152/70 (97) 97 11/28/18 21:07 68 18 95 Room Air 21 11/28/18 21:00 Room Air 11/28/18 20:54 61 142/73 11/28/18 20:00 98.4 61 20 142/73 (96) 98 11/28/18 16:00 97.8 62 18 133/72 (92) 97 11/28/18 16:00 60 Intake and Output 11/28/18 11/29/18 19:00 07:00 Intake Total 240 ml 240 ml Balance 240 ml 240 ml Intake Oral 240 ml 240 ml Height (Feet): 5 Height (Inches): 6.00 Weight (Pounds): 142 General Appearance: no apparent distress Objective no change Manolo Grimes MD Nov 29, 2018 16:00
--- NOTE | 2018-11-29 16:35 | NUR ---
NURSE NOTES: Patient blood sugar 68mg/dl,patient is alert able to take po juice and crackers,will recheck blood sugar.
--- NOTE | 2018-11-29 17:47 | NUR ---
NURSE NOTES: Patient blood sugar now 139mg/dl ,patient is alert and oriented.Call light within reach,bed alarm is on,patient is awake and alert.
--- NOTE | 2018-11-29 19:55 | NUR ---
Received report from ALICIA Ferrell. No distress noted. No complaints of pain, bed in low position, locked, side rails up x2, padded. Call light within reach. Will continue to monitor.
--- NOTE | 2018-11-29 19:56 | NUR ---
HAND-OFF: Report given to Blanquita VARGAS.
--- NOTE | 2018-11-29 20:47 | NUR ---
NURSE NOTES: Held Heparin, platelets 94.
[2018-11-29] MEDS ORDERED: Tamsulosin 0.4mg cap ORAL SCH (21:00)
[2018-11-29] MEDS ORDERED: Miralax 17gm pkt ORAL PRN (21:00)
[2018-11-30] VITALS: BP 154/70
--- NOTE | 2018-11-30 01:19 | NUR ---
NURSE NOTES: Patient sleeping, respirations unlabored.
[2018-11-30 04:00] VITALS: BP 156/73
[2018-11-30] MEDS: NovoLOG Insulin Flexpen SUBQ SCH ×3 (06:30→16:30)
--- NOTE | 2018-11-30 07:58 | NUR ---
NURSE NOTES: Received report form ALICIA Figueroa. Rounding done with outgoing nurse. Patient a/o x 4, Mongolian speaking. Pt having breakfast. No respiratory discomfort noted. No c/o pain. Bed alarm is on. Bed in lowest position, call light within reach. Will continue to monitor.
[2018-11-30 08:00] VITALS: BP 148/72
--- NOTE | 2018-11-30 08:35 | General Progress Note ---
Assessment/Plan Problem List: (1) ACS (acute coronary syndrome) ICD Codes: I24.9 - Acute ischemic heart disease, unspecified SNOMED: 549700294 (2) ESRF (end stage renal failure) ICD Codes: N18.6 - End stage renal disease SNOMED: 00971819 (3) Diabetes mellitus ICD Codes: E11.9 - Type 2 diabetes mellitus without complications SNOMED: 06958852 (4) History of seizure ICD Codes: Z87.898 - Personal history of other specified conditions SNOMED: 824661794 (5) BPH (benign prostatic hyperplasia) ICD Codes: N40.0 - Benign prostatic hyperplasia without lower urinary tract symptoms SNOMED: 146391509 Status: stable, progressing Assessment/Plan: pt diet pain control cardio f/u cbc bmp am dc plan snf if clear Subjective Constitutional: Reports: weakness Allergies: Coded Allergies: LOSARTAN (Verified Allergy, Unknown, 11/26/18) METOCLOPRAMIDE (Verified Allergy, Unknown, 11/26/18) [id number]-COS REDUCTASE INHIBITOR (Verified Allergy, Unknown, 11/26/18) All Systems: reviewed and negative except above Subjective calm in bed Objective Last 24 Hour Vital Signs Date Time Temp Pulse Resp B/P (MAP) Pulse Ox O2 Delivery O2 Flow Rate FiO2 11/30/18 08:13 60 18 92 Room Air 21 11/30/18 04:00 97.9 60 17 156/73 (100) 99 11/30/18 00:00 97.9 61 16 154/70 (98) 97 11/29/18 21:00 Room Air 11/29/18 21:00 144/72 (96) 11/29/18 20:42 64 144/72 11/29/18 20:18 64 18 97 Room Air 21 11/29/18 20:00 98.3 60 18 135/53 (80) 95 11/29/18 16:00 98.0 59 20 153/89 (110) 97 11/29/18 12:00 99.0 91 18 133/68 (89) 99 11/29/18 10:02 64 18 99 Room Air 21 11/29/18 09:00 Room Air Intake and Output 11/29/18 11/30/18 19:00 07:00 Intake Total 480 ml 240 ml Balance 480 ml 240 ml Intake Oral 480 ml 240 ml Height (Feet): 5 Height (Inches): 6.00 Weight (Pounds): 147 General Appearance: lethargic EENT: normal ENT inspection Neck: normal alignment Cardiovascular: normal peripheral pulses, normal rate, regular rhythm Respiratory/Chest: chest wall non-tender, lungs clear, normal breath sounds Abdomen: normal bowel sounds, non tender, soft Extremities: normal inspection Edema: no edema noted Arm (L), no edema noted Arm (R), no edema noted Leg (L), no edema noted Leg (R), no edema noted Pedal (L), no edema noted Pedal (R), no edema noted Generalized Neurologic: responsive, motor weakness Skin: normal pigmentation, warm/dry Jethro Novoa DO Nov 30, 2018 08:35
--- NOTE | 2018-11-30 08:50 | Cardiology Report ---
APPROVED REPORT EXAM: Two-dimensional and M-mode echocardiogram with Doppler and color Doppler. INDICATION LV FUNCTION M-Mode DIMENSIONS IVSd1.7 (0.7-1.1cm)Left Atrium (MM)3.6 (1.6-4.0cm) LVDd3.7 (3.5-5.6cm)Aortic Root3.4 (2.0-3.7cm) PWd1.2 (0.7-1.1cm)Aortic Cusp Exc.1.9 (1.5-2.0cm) IVSs1.9 cm LVDs3.0 (2.5-4.0cm) PWs1.4 cm Normal left ventricular chamber size, systolic function and wall motion to extent visualized. Left ventricular ejection fraction estimated to be 55%. Mild left ventricular hypertrophy. Anterior Echo-free space, may be due to pericardial fat or effusion. All other cardiac chamber sizes are within normal limits. Aortic valve calcification with decreased cusp excursion c/w aortic stenosis. Mildly thickened mitral valve leaflets with normal excursion. Mild mitral annulus and aortic root calcification. Pulmonic valve not well visualized. IVC at normal size with physiologic collapse. Pacemaker wire present in the right side chambers. A color flow and spectral Doppler study was performed and revealed: Mild aortic insufficiency . Peak aortic valve gradient of 14 mm Hg and a mean of 7 mmHg. Aortic valve area 1.1 cm2 calculated by continuity equation. Mitral inflow velocities indicates possible pseudo normalization pattern implying moderately elevated left atrial pressure (Grade II ) Mild mitral regurgitation. Mild tricuspid regurgitation. Tricuspid systolic velocities suggests peak right ventricular systolic pressure of 35mmHg. Mild pulmonic regurgitation .
[2018-11-30] MEDS ORDERED: Amiodarone 200mg tab ORAL SCH (09:00)
[2018-11-30] MEDS ORDERED: PARoxetine 20mg tab ORAL SCH (09:00)
[2018-11-30] MEDS: Heparin 5000 units/ml inj SUBQ SCH (09:00)
[2018-11-30 12:00] VITALS: BP 132/62
--- NOTE | 2018-11-30 12:54 | Nephrology Progress Note ---
Assessment/Plan Problem List: (1) ESRF (end stage renal failure) (2) BPH (benign prostatic hyperplasia) (3) ACS (acute coronary syndrome) (4) Diabetes mellitus Assessment ACS ESRD HTN BPH DM Plan HD 11/27 next 11/30 in process BP and BS control per cardiology ? Dc planning Subjective ROS Limited/Unobtainable: No Constitutional: Reports: malaise Objective Objective Last 24 Hour Vital Signs Date Time Temp Pulse Resp B/P (MAP) Pulse Ox O2 Delivery O2 Flow Rate FiO2 11/30/18 12:00 98.0 62 20 132/62 (85) 96 11/30/18 09:00 Room Air 11/30/18 09:00 60 148/72 11/30/18 08:13 60 18 92 Room Air 21 11/30/18 08:00 98.0 62 18 148/72 (97) 94 11/30/18 04:00 97.9 60 17 156/73 (100) 99 11/30/18 00:00 97.9 61 16 154/70 (98) 97 11/29/18 21:00 Room Air 11/29/18 21:00 144/72 (96) 11/29/18 20:42 64 144/72 11/29/18 20:18 64 18 97 Room Air 21 11/29/18 20:00 98.3 60 18 135/53 (80) 95 11/29/18 16:00 98.0 59 20 153/89 (110) 97 Intake and Output 11/29/18 11/30/18 19:00 07:00 Intake Total 480 ml 240 ml Balance 480 ml 240 ml Intake Oral 480 ml 240 ml Height (Feet): 5 Height (Inches): 6.00 Weight (Pounds): 147 General Appearance: no apparent distress Objective no change Manolo Grimes MD Nov 30, 2018 12:54
--- NOTE | 2018-11-30 13:22 | NUR ---
DISCHARGE DISPOSITION: PLEASE READ PATIENT TO BE DISCHARGED TO [facility] [address] [facility] ROOM [address] T: [phone]>> CALL FOR REPORT [facility] ETA 1530 SKILLED UNABLE TO LEAVE VM AT [phone] VM LEFT AT [phone] Addendum: 11/30/18 at 1726 by Sanna Bravo PER [facility] ROOM WILL NOT BE AVAILABLE UNTIL 0 D/T STAFFING ISSUES. [facility] ETA 1900 NURSING IS AWARE.
[2018-11-30 14:36] LABS: HEMATOCRIT 35.7 % (42.0-52.0); HEMOGLOBIN 11.7 G/DL (14.2-18.0); MEAN CORPUSCULAR VOLUME 100 FL (80-99); PLATELET COUNT 89 K/UL (150-450); RED BLOOD COUNT 3.56 M/UL (4.70-6.10); RED CELL DISTRIBUTION WIDTH 12.5 % (11.6-14.8); WHITE BLOOD COUNT 4.1 K/UL (4.8-10.8)
--- NOTE | 2018-11-30 14:46 | Pulmonology Progress Note ---
Assessment/Plan Problems: (1) ACS (acute coronary syndrome) (2) ESRF (end stage renal failure) (3) Diabetes mellitus (4) AICD (automatic cardioverter/defibrillator) present (5) History of seizure (6) BPH (benign prostatic hyperplasia) Assessment/Plan no new complains A-paced at 60's serial ekg, troponin echocardiogram cardiology evaluation. check ICD sliding scale diabetic diet seizure precaution f/u cardiology recommendations Subjective ROS Limited/Unobtainable: No Constitutional: Reports: no symptoms HEENT: Repors: no symptoms Allergies: Coded Allergies: LOSARTAN (Verified Allergy, Unknown, 11/26/18) METOCLOPRAMIDE (Verified Allergy, Unknown, 11/26/18) [id number] REDUCTASE INHIBITOR (Verified Allergy, Unknown, 11/26/18) Objective Last 24 Hour Vital Signs Date Time Temp Pulse Resp B/P (MAP) Pulse Ox O2 Delivery O2 Flow Rate FiO2 11/30/18 12:00 98.0 62 20 132/62 (85) 96 11/30/18 09:00 Room Air 11/30/18 09:00 60 148/72 11/30/18 08:13 60 18 92 Room Air 21 11/30/18 08:00 98.0 62 18 148/72 (97) 94 11/30/18 04:00 97.9 60 17 156/73 (100) 99 11/30/18 00:00 97.9 61 16 154/70 (98) 97 11/29/18 21:00 Room Air 11/29/18 21:00 144/72 (96) 11/29/18 20:42 64 144/72 11/29/18 20:18 64 18 97 Room Air 21 11/29/18 20:00 98.3 60 18 135/53 (80) 95 11/29/18 16:00 98.0 59 20 153/89 (110) 97 Intake and Output 11/29/18 11/30/18 19:00 07:00 Intake Total 480 ml 240 ml Balance 480 ml 240 ml Intake Oral 480 ml 240 ml General Appearance: WD/WN HEENT: normocephalic, anicteric Respiratory/Chest: chest wall non-tender, normal breath sounds Cardiovascular: normal peripheral pulses, normal rate Abdomen: normal bowel sounds, non distended Genitourinary: normal external genitalia Skin: no rash Laboratory Tests 11/30/18 14:05: White Blood Count 4.1L, Red Blood Count 3.56L, Hemoglobin 11.7L, Hematocrit 35.7L, Mean Corpuscular Volume 100H, Mean Corpuscular Hemoglobin 32.9H, Mean Corpuscular Hemoglobin Concent 32.9, Red Cell Distribution Width 12.5, Platelet Count 89L, Mean Platelet Volume 6.9, Neutrophils (%) (Auto) , Lymphocytes (%) ( Auto) , Monocytes (%) (Auto) , Eosinophils (%) (Auto) , Basophils (%) (Auto) , Neutrophils % (Manual) [Pending], Lymphocytes % (Manual) [Pending], Platelet Estimate [Pending], Platelet Morphology [Pending], Sodium Level [Pending], Potassium Level [Pending], Chloride Level [Pending], Carbon Dioxide Level [ Pending], Blood Urea Nitrogen [Pending], Creatinine [Pending], Estimat Glomerular Filtration Rate [Pending], Glucose Level [Pending], Calcium Level [ Pending] Current Medications Medications (Trade) Dose Ordered Sig/Fernando Route PRN Reason Start Time Stop Time Status Last Admin Dose Admin Acetaminophen (Tylenol) 650 mg Q4H PRN ORAL T>100.5 11/29/18 16:00 12/26/18 15:59 Albuterol/ Ipratropium (Albuterol/ Ipratropium) 3 ml Q6H PRN HHN dyspnea 11/29/18 16:00 12/04/18 15:59 Amiodarone HCl (Cordarone) 200 mg DAILY ORAL 11/30/18 09:00 12/27/18 08:59 Carvedilol (Coreg) 3.125 mg EVERY 12 HOURS ORAL 11/29/18 21:00 12/27/18 20:59 11/29/18 20:42 Clonidine HCl (Catapres Tab) 0.1 mg Q4H PRN ORAL SBP > 160mmHg 11/29/18 18:00 12/26/18 13:59 Dextrose (Dextrose 50%) 25 ml Q30M PRN IV Hypoglycemia 11/29/18 15:30 12/26/18 13:53 Dextrose (Dextrose 50%) 50 ml Q30M PRN IV hypoglycemia 11/29/18 15:30 12/26/18 13:59 Gabapentin (Neurontin) 100 mg BID ORAL 11/29/18 18:00 12/26/18 17:59 11/30/18 13:11 Heparin Sodium (Porcine) (Heparin 5000 units/ml) 5,000 units EVERY 12 HOURS SUBQ 11/29/18 21:00 12/26/18 20:59 Insulin Aspart (NovoLOG) BEFORE MEALS AND HS SUBQ 11/29/18 16:30 12/26/18 16:29 11/29/18 22:34 Levetiracetam (Keppra) 500 mg EVERY 12 HOURS ORAL 11/29/18 21:00 12/26/18 20:59 11/30/18 13:11 Morphine Sulfate (Morphine Sulfate) 1 mg Q4H PRN IVP PAIN 4-10 11/29/18 16:00 12/03/18 15:59 Ondansetron HCl (Zofran) 4 mg Q6H PRN IVP Nausea & Vomiting 11/29/18 16:00 12/26/18 15:59 Paroxetine HCl (Paxil) 20 mg DAILY ORAL 11/30/18 09:00 12/27/18 08:59 11/30/18 13:12 Polyethylene Glycol (Miralax) 17 gm HSPRN PRN ORAL Constipation 11/29/18 21:00 12/29/18 20:59 11/30/18 13:30 Tamsulosin HCl (Flomax) 0.4 mg BEDTIME ORAL 11/29/18 21:00 12/27/18 08:59 11/29/18 20:41 Zolpidem Tartrate (Ambien) 5 mg HSPRN PRN ORAL Insomnia 11/30/18 21:00 12/03/18 20:59 Emiliano Castellanos MD Nov 30, 2018 14:46
[2018-11-30 14:53] LABS: ANION GAP 9 mmol/L (5-15); BLOOD UREA NITROGEN 17 mg/dL (7-18); CALCIUM 8.9 MG/DL (8.5-10.1); CARBON DIOXIDE 29 MMOL/L (21-32); CHLORIDE 97 MMOL/L (98-107); CREATININE 4.3 MG/DL (0.55-1.30); POTASSIUM 2.9 MMOL/L (3.5-5.1); SODIUM 135 MMOL/L (136-145)
--- NOTE | 2018-11-30 15:44 | NUR ---
NURSE NOTES: Potassium 2.[address] Mcintyre was notified.
--- NOTE | 2018-11-30 15:51 | Cardiac Electrophysiology PN ---
Assessment/Plan Assessment/Plan ASSESSMENT AND PLAN: 1. Chest pain in a patient with history of coronary artery bypass graft. Troponins are negative x3 and currently does not have chest pain. 2. Congestive heart failure. BNP is more than 23,000. The patient is on hemodialysis and Coreg 3.125 bid 3. Status post dual-chamber [employer] defibrillator with Nl fx. ICD check Battery 5 years and no arrhythmias. 4. Paroxysmal atrial fibrillation. Currently in atrially paced rhythm on amiodarone 200 mg daily. 5. End-stage renal disease, on hemodialysis. 6. History of seizures, on Keppra. 7. Diabetes, on insulin. Going to [facility] Subjective Subjective Going to [facility] today Objective Last 24 Hour Vital Signs Date Time Temp Pulse Resp B/P (MAP) Pulse Ox O2 Delivery O2 Flow Rate FiO2 11/30/18 12:00 98.0 62 20 132/62 (85) 96 11/30/18 09:00 Room Air 11/30/18 09:00 60 148/72 11/30/18 08:13 60 18 92 Room Air 21 11/30/18 08:00 98.0 62 18 148/72 (97) 94 11/30/18 04:00 97.9 60 17 156/73 (100) 99 11/30/18 00:00 97.9 61 16 154/70 (98) 97 11/29/18 21:00 Room Air 11/29/18 21:00 144/72 (96) 11/29/18 20:42 64 144/72 11/29/18 20:18 64 18 97 Room Air 21 11/29/18 20:00 98.3 60 18 135/53 (80) 95 11/29/18 16:00 98.0 59 20 153/89 (110) 97 Intake and Output 11/29/18 11/30/18 19:00 07:00 Intake Total 480 ml 240 ml Balance 480 ml 240 ml Intake Oral 480 ml 240 ml Laboratory Tests Test 11/30/18 14:05 White Blood Count 4.1 K/UL (4.8-10.8) L Red Blood Count 3.56 M/UL (4.70-6.10) L Hemoglobin 11.7 G/DL (14.2-18.0) L Hematocrit 35.7 % (42.0-52.0) L Mean Corpuscular Volume 100 FL (80-99) H Mean Corpuscular Hemoglobin 32.9 PG (27.0-31.0) H Mean Corpuscular Hemoglobin Concent 32.9 G/DL (32.0-36.0) Red Cell Distribution Width 12.5 % (11.6-14.8) Platelet Count 89 K/UL (150-450) L Mean Platelet Volume 6.9 FL (6.5-10.1) Neutrophils (%) (Auto) % (45.0-75.0) Lymphocytes (%) (Auto) % (20.0-45.0) Monocytes (%) (Auto) % (1.0-10.0) Eosinophils (%) (Auto) % (0.0-3.0) Basophils (%) (Auto) % (0.0-2.0) Differential Total Cells Counted 100 Neutrophils % (Manual) 65 % (45-75) Lymphocytes % (Manual) 18 % (20-45) L Monocytes % (Manual) 13 % (1-10) H Eosinophils % (Manual) 3 % (0-3) Basophils % (Manual) 1 % (0-2) Band Neutrophils 0 % (0-8) Platelet Estimate Decreased L Platelet Morphology Normal Red Blood Cell Morphology Normal Hypochromasia Sodium Level 135 MMOL/L (136-145) L Potassium Level 2.9 MMOL/L (3.5-5.1) L Chloride Level 97 MMOL/L (98-107) L Carbon Dioxide Level 29 MMOL/L (21-32) Anion Gap 9 mmol/L (5-15) Blood Urea Nitrogen 17 mg/dL (7-18) Creatinine 4.3 MG/DL (0.55-1.30) H Estimat Glomerular Filtration Rate mL/min (>60) Glucose Level 114 MG/DL (74-106) H Calcium Level 8.9 MG/DL (8.5-10.1) Objective HEAD AND NECK: Shows mild JVD. LUNGS: Decreased breath sounds. CARDIOVASCULAR: Shows regular S1 and S2 with no gallop. He has sternotomy, which is intact. His defibrillator is in the right subclavian. ABDOMEN: Soft. EXTREMITIES: AV fistula in the left arm. Reno Pinto MD Nov 30, 2018 15:51
[2018-11-30 16:00] VITALS: BP 173/69
--- NOTE | 2018-11-30 17:17 | NUR ---
NURSE NOTES: Report was given to ALICIA Dominguez at [facility].
--- NOTE | 2018-11-30 18:40 | NUR ---
NURSE NOTES: Called Aaron Shipley, no answer. Called Thomas Shipley and left voice message regarding d/c to [facility].
--- NOTE | 2018-11-30 19:26 | NUR ---
HAND-OFF: Report given to Amrit Marte RN.
[2018-11-30] MEDS ORDERED: 1/2 NS 1000ml IV ONE (19:29)
--- NOTE | 2018-11-30 19:55 | NUR ---
NURSE NOTES: Patient received report from AM nurse. Patient is alert and oriented. VSS. No SOB noted. In Room air. No Pain noted at this time. No meds given by RN. Patient was picked up by special education teacher after report was given. VSS was re checked it was stable. IV site removed. Discharge packet given to the special education teacher. Needs attended. No signs of distress noted. Left in stable condition.
[2018-11-30] MEDS ORDERED: Zolpidem 5mg tab ORAL PRN (21:00)
--- NOTE | 2018-12-01 13:56 | Discharge Summary ---
Discharge Summary Discharge Summary _ DATE OF ADMISSION: 11/26/2018 DATE OF DISCHARGE: 12/01/19 19 DISCHARGED BY: Dr Novoa REASON FOR ADMISSION: 73 years old male with past medical history of hypertension, end-stage renal disease on hemodialysis, diabetes mellitus, ICD, presented [facility] emergency department [facility] with complaint of chest pain. Pain was described as located in midsternal. Patient denied change with position or exertion. Patient denied cough or shortness of breath. Upon evaluation in emergency department vital signs are stable. Laboratory work-up revealed no leukocytosis hemoglobin 11.4, hematocrit 33. Platelets 97 stable electrolytes. BUN 22, creatinine 4.5, consistent with known history of end- stage renal disease. Table LFT troponin 0 0.017 proBNP 30065. Albumin 3.3. Lipase 85. EKG reveals sinus rhythm EKG revealed paced rhythm no acute ischemic changes chest x-ray demonstrated no acute cardiopulmonary pathology. Patient subsequently admitted to telemetry floor for further management. CONSULTANTS: theatrical agent Dr. Cary neurologist pulmonary Dr. Castellanos ID specialist GI specialist bobbin stripper Dr. Grimes natural gas shothole driller/oncologist surgery psychiatrist HOSPITAL COURSE: [] Patient admitted to telemetry floor. Foiling Machine Adjuster and pathology specialist closely follow. Serial troponins were negative. EKG and telemetry revealed no acute ischemic changes. Patient was rule out for acute myocardial infarction. Echocardiogram revealed ejection fraction of 55% with mild left ventricular hypertrophy. No evidence of wall motion abnormality. Aortic stenosis. Right ventricular systolic pressure of 35. Moderately elevated left atrial pressure grade 2. Defibrillator was interrogated and showed battery life of 5 years no arrhythmia and normal functioning. Nitroglycerin was on board or as needed. Patient was on beta-britni and amiodarone. TSH within normal limits.. No need for anticoagulation in this setting. Blood pressure was closely monitored remained stable. Lipid panel stable. Supplemental oxygen provided need to keep pulse oximetry above 92%. Pulmonary toilet provided as needed. DVT prophylaxis provided. Blood sugar was managed with sliding scale of insulin. Hemoglobin A1c-5.8, at goal. Seizure precaution maintained. Keppra continued. No evidence of seizure activity while in the hospital. longterm facility medication continued. Hemoglobin hematocrit were closely monitored with goal to keep hemoglobin above 7. Prior to discharge hemoglobin 11.7 hematocrit 35.7. Anemia work-up revealed evidence of anemia of chronic disease. Ferritin 911. Platelet count was closely monitor prior to discharge 89. Renal ultrasound demonstrated small kidneys bilaterally with increased echogenicity suggestive of medical renal disease. No hydronephrosis noted. No sonographically appreciable renal stone. Hemodialysis was arranged as per bobbin stripper with close monitoring of volumes renal parameters and electrolytes. Patient clinically stabilized. Chest pain resolved. Patient was working as a physical therapy who recommended further acute rehabilitation program. Patient was stable for transfer to acute rehabilitation center at [facility] for further rehabilitation. FINAL DIAGNOSES: 1. [] Chest pain in patient with a history of coronary artery bypass graft Status post dual-chamber [employer] defibrillator Paroxysmal atrial fibrillation End-stage renal disease, on hemodialysis Seizure disorder, Diabetes mellitus BPH DISCHARGE MEDICATIONS: See Medication Reconciliation list. DISCHARGE INSTRUCTIONS: [] Patient was discharged to [facility]. I have been assigned to dictate discharge summary for this account. I was not involved in the patient's management. Rosa Raya NP Dec 01, 2018 13:56
== END 2018-11-30 19:30 | disposition short-term general hospital (02) | DRG 302 ==
LOC: EDBD 10:40 → EMR 11:00 → 2E 11:24 → INTOOBSV 11:24 → EDBEDREQ 11:46 → OBSVTOIN 13:28 → 3E 11-29 15:21
PROC: 5A1D70Z Performance of Urinary Filtration, Intermittent, Less than 6 Hours Per Day (ICD-10-PCS; principal; 2018-11-30)
DX: I25.119 Atherosclerotic heart disease of native coronary artery with unspecified angina pectoris (principal); N18.6 End stage renal disease; E46 Unspecified protein-calorie malnutrition; Z99.2 Dependence on renal dialysis; Z88.8 Allergy status to other drugs, medicaments and biological substances; N40.0 Benign prostatic hyperplasia without lower urinary tract symptoms; Z79.4 Long term (current) use of insulin; E11.22 Type 2 diabetes mellitus with diabetic chronic kidney disease; I48.0 Paroxysmal atrial fibrillation; I25.10 Atherosclerotic heart disease of native coronary artery without angina pectoris; Z95.1 Presence of aortocoronary bypass graft; D63.8 Anemia in other chronic diseases classified elsewhere; G40.909 Epilepsy, unspecified, not intractable, without status epilepticus; I35.0 Nonrheumatic aortic (valve) stenosis; Z95.810 Presence of automatic (implantable) cardiac defibrillator; I25.2 Old myocardial infarction; I50.9 Heart failure, unspecified
CPT/HCPCS: 36415; 71045; 76770; 80048; 80053; 80061; 80299; 82550; 82553; 82607; 82728; 82746; 82962; 82977; 83036; 83540; 83550; 83690; 83735; 83880; 84100; 84443; 84484; 84550; 85007; 85025; 86140; 86706; 87081; 93005; 93306; 94664; 99285; J1815

== ENCOUNTER 2019-02-07 09:42 | Inpatient (IN) | payer MEDICARE, OTHER ==
[~2019-02-07] VITALS: Ht 162.6 cm; Wt 67.1 kg
[~2019-02-07 09:42] MED LIST: ACETAMINOPHEN325 M1 ORAL; ACETAMINOPHEN500 M3 ORAL; AMIODARONE HCL200 MG ORAL; AMLODIPINE BESY10 MG ORAL; ARTIFICIAL TEAR15 ML BOTH EYES; ASCORBIC ACID500 MG ORAL; ASPIRIN81 MG ORAL; AVODART0.5 MG ORAL; CARVEDILOL25 MG ORAL; CLOPIDOGREL75 MG ORAL; COLACE100 MG ORAL; CRANBERRY450 M4 PO; DOCUSATE SODIU100 M2 ORAL; DULCOLAX10 MG RC; FLEET ENEMA133 ML RECTAL; FLOMAX0.4 MG ORAL; FOLIC ACID1 MG ORAL; GABAPENTIN100 MG ORAL; GLUCAGON EMERGEN1 MG IM; HUMULIN R100 UNIT/1 SUBQ; HYDRALAZINE HCL25 M1 ORAL; ISOSORBIDE MONO30 M1 PO; KEPPRA500 M4 ORAL; MECLIZINE HCL25 MG ORAL; MILK OF MA400 MG/51 ORAL; NEPHROVITE1 TAB ORAL; NITROSTAT0.4 M1 SL; PAXIL20 MG ORAL; PRO-STAT LIQUID30 ML ORAL; PROTONIX40 MG ORAL; RENAGEL800 MG ORAL
[2019-02-07] MEDS ORDERED: Nitroglycerin 2% oint pkt TOPIC ONE (09:45)
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
--- NOTE | 2019-02-07 09:46 | NUR ---
ED Nurse Note: pt aao x2-[address] but no date. pt does not remember last dialysis date. pt reported he usually gets QM, W, F.
--- NOTE | 2019-02-07 09:48 | Emergency Room Report ---
History of Present Illness General Chief Complaint: Chest Pain Source: Patient, Medical Record Present Illness HPI 73-year-old male history of hypertension, hyperlipidemia, dialysis Friday presents with chest pain that started at 9 PM has been constant unknown aggravating or alleviating factors, pressure-like severity is moderate he endorses shortness of breath, feeling more fatigued, no abdominal pain no nausea no vomiting no diaphoresis patient presents for evaluation via senior living. Patient in route already received nitroglycerin and aspirin 325 Allergies: Coded Allergies: LOSARTAN (Verified Allergy, Unknown, 11/26/18) METOCLOPRAMIDE (Verified Allergy, Unknown, 11/26/18) [id number] REDUCTASE INHIBITOR (Verified Allergy, Unknown, 11/26/18) Patient History Past Medical History: see triage record Reviewed Nursing Documentation: PMH: Agreed; PSxH: Agreed Nursing Documentation-PMH Past Medical History: No History, Except For Hx Cardiac Problems: Yes - hyperlipidemia Hx Pacemaker: Yes Hx Diabetes: Yes Hx Cancer: No Hx Gastrointestinal Problems: No Hx Dialysis: Yes - MWF Hx Neurological Problems: Yes Hx Seizures: Yes Review of Systems All Other Systems: negative except mentioned in HPI Physical Exam Vital Signs Date Time Temp Pulse Resp B/P (MAP) Pulse Ox O2 Delivery O2 Flow Rate FiO2 02/07/19 09:42 98.4 60 16 115/55 (75) 99 Room Air Sp02 EP Interpretation: reviewed, normal General Appearance: well appearing, no apparent distress, alert Head: normocephalic, atraumatic Eyes: bilateral eye PERRL, bilateral eye EOMI ENT: uvula midline, moist mucus membranes Neck: supple, thyroid normal, supple/symm/no masses Respiratory: no respiratory distress, no retraction, no accessory muscle use, crackles - Left lower base Cardiovascular #1: normal peripheral pulses, regular rate, rhythm, no edema, no gallop, no murmur Gastrointestinal: non tender, soft, no guarding, no rebound Musculoskeletal: normal inspection Neurologic: alert, oriented x3 Psychiatric: mood/affect normal Skin: no rash, warm/dry Medical Decision Making Diagnostic Impression: Primary Impression: Chest pain Qualified Codes: R07.9 - Chest pain, unspecified Additional Impression: Pneumonia Qualified Codes: J18.1 - Lobar pneumonia, unspecified organism ER Course 73-year-old male presents with chest pain DDX ACS, pulmonary embolism, pneumothorax, pneumonia. Patient found to have a left lower lobe consolidation negative troponin, patient already received aspirin we will start broad-spectrum antibiotics Will admit patient for pneumonia treatment as well as management for his chest pain. Patient admitted to Dr. Novoa Laboratory Tests Test 02/07/19 09:55 White Blood Count 6.1 K/UL (4.8-10.8) Red Blood Count 3.12 M/UL (4.70-6.10) L Hemoglobin 10.4 G/DL (14.2-18.0) L Hematocrit 31.0 % (42.0-52.0) L Mean Corpuscular Volume 99 FL (80-99) Mean Corpuscular Hemoglobin 33.4 PG (27.0-31.0) H Mean Corpuscular Hemoglobin Concent 33.6 G/DL (32.0-36.0) Red Cell Distribution Width 13.1 % (11.6-14.8) Platelet Count 156 K/UL (150-450) Mean Platelet Volume 6.1 FL (6.5-10.1) L Neutrophils (%) (Auto) 74.2 % (45.0-75.0) Lymphocytes (%) (Auto) 13.6 % (20.0-45.0) L Monocytes (%) (Auto) 8.6 % (1.0-10.0) Eosinophils (%) (Auto) 2.9 % (0.0-3.0) Basophils (%) (Auto) 0.7 % (0.0-2.0) Prothrombin Time 12.7 SEC (9.30-11.50) H Prothrombin Time INR 1.2 (0.9-1.1) H PTT 31 SEC (23-33) Sodium Level 138 MMOL/L (136-145) Potassium Level 3.9 MMOL/L (3.5-5.1) Chloride Level 101 MMOL/L (98-107) Carbon Dioxide Level 27 MMOL/L (21-32) Anion Gap 10 mmol/L (5-15) Blood Urea Nitrogen 27 mg/dL (7-18) H Creatinine 6.1 MG/DL (0.55-1.30) H Estimate Glomerular Filtration Rate mL/min (>60) Glucose Level 208 MG/DL (74-106) H Calcium Level 9.0 MG/DL (8.5-10.1) Total Bilirubin 1.1 MG/DL (0.2-1.0) H Direct Bilirubin 0.6 MG/DL (0.0-0.3) H Aspartate Amino Transferase (AST) 18 U/L (15-37) Alanine Aminotransferase (ALT) 19 U/L (12-78) Alkaline Phosphatase 185 U/L (46-116) H Total Creatine Kinase 44 U/L (26-308) Creatine Kinase MB < 0.5 NG/ML (0.0-3.6) Creatine Kinase MB Relative Index 1.1 Troponin I 0.003 ng/mL (0.000-0.056) Pro-B-Type Natriuretic Peptide 22132 pg/mL (0-125) H Total Protein 6.9 G/DL (6.4-8.2) Albumin 2.7 G/DL (3.4-5.0) L Globulin 4.2 g/dL Albumin/Globulin Ratio 0.6 (1.0-2.7) L Lipase 59 U/L (73-393) L EKG Diagnostic Results EKG Time: 09:45 EP Interpretation: Atrial paced, rate 60, QTc 462, no acute ST elevations, normal axis Rhythm Strip Diag. Results Rhythm Strip Time: 09:48 EP Interpretation: yes Rate: 60 Rhythm: no PVC's, no ectopy, other - Atrial paced Chest X-Ray Diagnostic Results Chest X-Ray Diagnostic Results : Chest X-Ray Ordered: Yes # of Views/Limited/Complete: 1 View Indication: Chest Pain EP Interpretation: Yes Interpretation: other - Effusion left lower base Impression: Other - Effusion left lower base, Left lower lobe pneumonia Electronically Signed by: Artur Rueda MD Last Vital Signs Date Time Temp Pulse Resp B/P (MAP) Pulse Ox O2 Delivery O2 Flow Rate FiO2 02/07/19 09:42 98.4 60 16 115/55 (75) 99 Room Air Disposition: ADMITTED INPATIENT Condition: Stable Artur Rueda MD Feb 07, 2019 09:48
[2019-02-07] MEDS ORDERED: KEPPRA750 MG ORAL (09:52)
[2019-02-07] MEDS ORDERED: METRONIDAZOLE250 MG ORAL (09:54)
[2019-02-07] MEDS ORDERED: MELATONIN 5 MG1 EAC1 ORAL (09:54)
--- NOTE | 2019-02-07 09:56 | NUR ---
ED Nurse Note: chest x-ray at bedside.
[2019-02-07] MEDS ORDERED: CEFPODOXIME PR200 MG PO (09:57)
[2019-02-07] MEDS ORDERED: CLONIDINE HCL0.1 MG PO (09:57)
[2019-02-07 09:58] VITALS: BP 137/55
[2019-02-07 10:09] LABS: BASOPHILS % (AUTO) 0.7 % (0.0-2.0); EOSINOPHILS % (AUTO) 2.9 % (0.0-3.0); HEMOGLOBIN 10.4 G/DL (14.2-18.0); LYMPHOCYTES % (AUTO) 13.6 % (20.0-45.0); MEAN CORPUSCULAR VOLUME 99 FL (80-99); MONOCYTES % (AUTO) 8.6 % (1.0-10.0); NEUTROPHILS % (AUTO) 74.2 % (45.0-75.0); PLATELET COUNT 156 K/UL (150-450); RED BLOOD COUNT 3.12 M/UL (4.70-6.10); RED CELL DISTRIBUTION WIDTH 13.1 % (11.6-14.8); WHITE BLOOD COUNT 6.1 K/UL (4.8-10.8)
[2019-02-07 10:18] LABS: INR 1.2 (0.9-1.1)
[2019-02-07 10:23] LABS: ANION GAP 10 mmol/L (5-15); BLOOD UREA NITROGEN 27 mg/dL (7-18); CARBON DIOXIDE 27 MMOL/L (21-32); CHLORIDE 101 MMOL/L (98-107); CREATININE 6.1 MG/DL (0.55-1.30); POTASSIUM 3.9 MMOL/L (3.5-5.1); SODIUM 138 MMOL/L (136-145)
--- NOTE | 2019-02-07 10:24 | Diagnostic Imaging Report ---
EXAM: XR Chest, 1 View CLINICAL HISTORY: CP TECHNIQUE: Frontal view of the chest. COMPARISON: No relevant prior studies available. FINDINGS: Lungs: Accentuation of bronchovascular markings. Mild consolidation in the left lung base. Pleural space: Blunting of the costophrenic angles that could be from small effusions. No pneumothorax. Heart: Large cardiomediastinal silhouette. Surgical changes and pacemaker/AICD. Mediastinum: As above Bones/joints: No acute fracture. Vasculature: Stent graft in the left axillary region. IMPRESSION: Accentuation of bronchovascular markings. Mild consolidation in the left lung base.
[2019-02-07 10:36] LABS: ALANINE AMINOTRANSFERASE 19 U/L (12-78); ALBUMIN 2.7 G/DL (3.4-5.0); ALBUMIN/GLOBULIN RATIO 0.6 (1.0-2.7); ALKALINE PHOSPHATASE 185 U/L (46-116); ASPARTATE AMINO TRANSFERASE 18 U/L (15-37); BILIRUBIN,TOTAL 1.1 MG/DL (0.2-1.0); CKMB < 0.5 NG/ML (0.0-3.6); CREATINE KINASE 44 U/L (26-308)
[2019-02-07 10:37] LABS: BILIRUBIN,DIRECT 0.6 MG/DL (0.0-0.3)
--- NOTE | 2019-02-07 10:54 | NUR ---
ED Nurse Note: Jethro Novoa MD at bedside.
[2019-02-07] MEDS ORDERED: Cefepime HCl 2 GM in D5W 55 ML IVPB ONE (11:00)
[2019-02-07] MEDS ORDERED: Vancomycin 1.5gm/NS Premix 275 ML IVPB SCH (11:00)
[2019-02-07] MEDS ORDERED: Vancomycin 1.5gm vial IVPB ONE (11:33)
--- NOTE | 2019-02-07 11:33 | NUR ---
ED Nurse Note: was not able to pull out vancomycin 1.5mg from pyxis. it said "one or two items are not in formulary." Called pharmacy and was told to override it.
--- NOTE | 2019-02-07 11:38 | NUR ---
ED Nurse Note: overrode vancomycin 1.5mg as told by pharmacist but was not able to scan it. informed CN and pharmacist Alana. was told to do mannually administered on eMAR. verified dosage with CN.
[2019-02-07] MEDS ORDERED: Morphine Sulfate 2mg/ml Inj(IV/IM USE ONLY) IVP PRN (12:00)
[2019-02-07] MEDS ORDERED: Miralax 17gm pkt ORAL PRN (12:00)
[2019-02-07] MEDS ORDERED: Albuterol/Ipratropium 3ml neb HHN PRN (12:00)
[2019-02-07] MEDS ORDERED: dilTIAZem HCl 25mg/5ml Inj IV PRN (12:00)
[2019-02-07] MEDS ORDERED: Enalaprilat 1.25mg/ml Inj IV PRN (12:00)
[2019-02-07] MEDS ORDERED: Nitroglycerin Subl 0.4mg tab SL PRN (12:00)
--- NOTE | 2019-02-07 12:51 | NUR ---
REPORT GIVEN TO SHAWNA PATIENT IS TO BE TRANSFERD TO ROOM 211-2 VIA ACLS PROTOCOL
--- NOTE | 2019-02-07 13:00 | NUR ---
NURSE NOTES: Received patient from ALICIA Mcfarlane. Pt is alert and oriented X 4. He states that his chest pain has subsided and that he feels better. Applied heart monitor to patient. IV is patent. Bed is in lowest position, side rails padded, and call light is within reach. Will continue to monitor.
--- NOTE | 2019-02-07 13:45 | History and Physical Report ---
DATE OF ADMISSION: 02/07/2019 TIME SEEN: 10 a.m. CONSULTANTS: Reno Pinto M.D. CHIEF COMPLAINT: Chest pain. BRIEF HISTORY: This is a 73-year-old male from [facility]. This morning, presented with chest pain for one night, substernal, intermittent. No loss of consciousness. shortness of breath. No dizziness. The patient came to [place], diagnosed as above, being admitted to telemetry for further care. Currently, calm in bed, slightly weak. No complaint. PAST MEDICAL HISTORY: Includes ESRD, diabetes, seizure, BPH. PAST SURGICAL HISTORY: AICD. MEDICATIONS: Include cefepime, vancomycin, and nitroglycerin. ALLERGIES: Losartan, Reglan, and statins. SOCIAL HISTORY: No smoking. No alcohol. No intravenous drug abuse. FAMILY HISTORY: Noncontributory. REVIEW OF SYSTEMS: Slight chest pain. Slight short of breath. No nausea, vomiting, or diarrhea. PHYSICAL EXAMINATION: GENERAL: Calm in bed, oriented x2, in no acute distress. VITAL SIGNS: Temperature 98 degrees, pulse 60, respirations 16, blood pressure 137/55. CARDIOVASCULAR: No murmur. LUNGS: Distant and clear. ABDOMEN: Bowel sounds positive. Nontender. Nondistended. EXTREMITIES: No cyanosis, clubbing, or edema. NEUROLOGIC: The patient moves all extremities, slightly weak. LABORATORY AND DIAGNOSTIC DATA: Labs at this time show hemoglobin and hematocrit 10. BMP show BUN and creatinine 27 and 6.1, glucose 208. Troponin 0.003. BNP is 21,484. INR is 1.2. ASSESSMENT: 1. Chest pain. 2. ACS. 3. Anemia. 4. ESRD. 5. Diabetes. 6. Seizure. 7. BPH. PLAN: 1. Admit to tele. 2. Troponin q.8 h. x3. 3. EKG in the morning. 4. Cardiology and Nephrology evaluation. 5. Continue to follow the patient. 6. Pain control. 7. Blood pressure and blood sugar control. 8. Resume home medications. Jethro Novoa D.O. DR: MARINA/JAYME JOB#: [id number] CC:
--- NOTE | 2019-02-07 15:45 | Consultation ---
DATE OF CONSULTATION: 02/07/2019 CONSULTING PHYSICIAN: eFderico Byrnes M.D. REFERRING PHYSICIAN: Jethro Novoa D.O. REASON FOR CONSULTATION: 1. Hypertension. 2. End-stage renal disease, on dialysis. HISTORY OF PRESENT ILLNESS: The patient is a 73-year-old gentleman with known hypertension, , who undergoes hemodialysis every Friday, , and Friday. He presented complaining of chest pain since last evening. The patient is resting comfortably. He states mild shortness of breath has resolved. The chest pain was mainly pressure in nature. No nausea, vomiting, or diarrhea. ALLERGIES: Losartan, statins, and metoclopramide. PAST MEDICAL HISTORY: 1. End-stage renal disease, on dialysis. 2. Anemia of chronic kidney disease. 3. Hypertension. 4. Coronary artery disease. 5. BPH. 6. Neuropathy. 7. Diabetes mellitus. PAST SURGICAL HISTORY: Dialysis access placement. REVIEW OF SYSTEMS: NEUROLOGIC: The patient denies headache, change in vision, syncope, or presyncopal episodes. CARDIOVASCULAR: The patient was having chest pressure and pain. PULMONARY: No difficulty breathing, productive cough, or sputum. GASTROINTESTINAL/GENITOURINARY: No change in bowel habits. No nausea, vomiting, or diarrhea. ENDOCRINOLOGY: No night sweats, fevers, or chills. LABORATORY DATA: Labs dated February 07, 2019, white cell count 6.1, hemoglobin 10.4, and platelet count 156. Sodium 138, potassium 3.9, creatinine 6.1, BUN is 67. PHYSICAL EXAMINATION: VITAL SIGNS: Blood pressure 137/55, respiratory rate 16, pulse 60, temperature 98.4, and 99% oxygen saturation on room air. GENERAL: The patient awake, alert, not in distress. HEENT: Extraocular muscles intact. No lymphadenopathy noted. Oropharyngeal mucosa is clear and dry. CARDIOVASCULAR: S1, S2. No rubs or gallops. PULMONARY: Clear to auscultation bilaterally. No rales, rhonchi, or wheezes. ABDOMEN: Soft and nontender. EXTREMITIES: Trace edema noted. ASSESSMENT AND PLAN: 1. End-stage renal disease, on dialysis. The patient will undergo hemodialysis Friday, , and Friday. We will continue to follow laboratories on a daily basis. 2. Shortness of breath. The patient on chest x-ray has possible left lung base pneumonia. Defer management to primary care physician. 3. Acute coronary syndrome with chest pain. Being managed by Dr. Pinto, Cardiology. 4. Diabetes mellitus. Continue home dose insulin therapy. 5. Anemia, chronic kidney disease. Hemoglobin currently 10.4. Epogen if hemoglobin less than 10. 6. Dr. Grimes will be back February 08, 2019 and will resume care. Federico Byrnes MD DR: DAJA JOB#: [id number] CC:
[2019-02-07 16:27] VITALS: BP 134/63
[2019-02-07] MEDS: NovoLOG Insulin Flexpen SUBQ SCH ×2 (17:20→21:37)
--- NOTE | 2019-02-07 18:15 | Consultation ---
History of Present Illness General Date patient seen: Feb 07, 2019 Chief Complaint: Chest Pain Reason for Consultation: inpatient management Present Illness HPI 73-year-old male history of hypertension, cardiomyopathy, AICD, dialysis Friday presented to ER with chest pain, constant unknown aggravating or alleviating factors, pressure-like. He also complainsing of shortness of breath, feeling more fatigued. Pt is admitted to telemetry for further management. Allergies: Coded Allergies: LOSARTAN (Verified Allergy, Unknown, 11/26/18) METOCLOPRAMIDE (Verified Allergy, Unknown, 11/26/18) [id number] REDUCTASE INHIBITOR (Verified Allergy, Unknown, 11/26/18) Medication History Scheduled Amino Acids/Protein Hydrolys (Pro-Stat Liquid), 30 ML ORAL DAILY, (Reported) Amiodarone Hcl* (Cordarone*), 200 MG ORAL DAILY, (Reported) Amlodipine Besylate* (Amlodipine Besylate*), 10 MG ORAL DAILY, (Reported) Aspirin* (Aspirin*), 81 MG ORAL DAILY, (Reported) Carvedilol* (Carvedilol*), 25 MG ORAL EVERY 12 HOURS, (Reported) Cefpodoxime Proxetil (Cefpodoxime Proxetil), 200 MG PO Q12HR, (Reported) Clonidine Hcl (Clonidine Hcl), 0.1 MG PO BID, (Reported) Clopidogrel* (Clopidogrel*), 75 MG ORAL DAILY, (Reported) Cranberry Fruit Concentrate (Cranberry), 450 MG PO BID, (Reported) Docusate Sodium (Docusate Sodium), 100 MG ORAL DAILY, (Reported) Dutasteride (Avodart), 0.5 MG ORAL DAILY, (Reported) Folic Acid* (Folic Acid*), 1 MG ORAL DAILY, (Reported) Gabapentin* (Gabapentin*), 100 MG ORAL BID, (Reported) Hydralazine Hcl* (Hydralazine Hcl*), 25 MG ORAL EVERY 8 HOURS, (Reported) Levetiracetam (Keppra), 500 MG ORAL EVERY 12 HOURS, (Reported) Levetiracetam (Keppra), 750 MG ORAL BID, (Reported) Magnesium Hydroxide* (Milk Of Magnesia*), 30 ML ORAL BEDTIME, (Reported) Metronidazole* (Flagyl*), 250 MG ORAL EVERY 8 HOURS, (Reported) Pantoprazole* (Protonix*), 40 MG ORAL DAILY, (Reported) Paroxetine Hcl* (Paxil*), 20 MG ORAL BEDTIME, (Reported) Sevelamer Hcl (Renagel), 800 MG ORAL THREE TIMES A DAY, (Reported) Tamsulosin HCl (Flomax), 0.4 MG ORAL DAILY, (Reported) Vitamin B Cmplx/Vit C/Folic AC (Nephro-John Tablet), 1 TAB ORAL DAILY, (Reported ) Scheduled PRN Acetaminophen* (Acetaminophen 325MG Tablet*), 650 MG ORAL Q6HR PRN for Pain Scale (3-5), (Reported) Acetaminophen* (Acetaminophen Extra Strength*), 500 MG ORAL Q6H PRN for Pain Scale (6-10), (Reported) Bisacodyl (Dulcolax), 10 MG RC for Constipation, (Reported) Dextran 70/Hypromellose (Artificial Tears Eye Drops*), 2 DROP BOTH EYES BID PRN for Dry Eyes, (Reported) Glucagon,Human Recombinant (Glucagon Emergency Kit), 1 MG IJ for HYPOGLYCEMIA, ( Reported) Melatonin (Melatonin 5 Mg Tablet), 1 TAB ORAL BEDTIME PRN for Insomnia, ( Reported) Na Phos,M-B/Na Phos,Di-Ba* (Fleet Enema*), 133 ML RECTAL DAILY PRN for Constipation, (Reported) Nitroglycerin (Nitrostat), 0.4 MG SL Q5M X3 DOSES PRN for CHEST PAIN, (Reported) Miscellaneous Medications Dextran 70/Hypromellose (Artificial Tears Eye Drops*), 1 DROP BOTH EYES, ( Reported) Insulin Regular, Human (Humulin R), 0 SUBQ, (Reported) Isosorbide Mononitrate (Isosorbide Mononitrate Er), 30 MG PO, (Reported) Patient History Healthcare decision maker Resuscitation status Full Code Advanced Directive on File Past Medical/Surgical History Past Medical/Surgical History: (1) BPH (benign prostatic hyperplasia) (2) History of seizure (3) Diabetes mellitus (4) ACS (acute coronary syndrome) (5) AICD (automatic cardioverter/defibrillator) present Review of Systems All Other Systems: negative except mentioned in HPI Physical Exam General Appearance: WD/WN Lines, tubes and drains: peripheral, dialysis access HEENT: normocephalic, anicteric Neck: non-tender Respiratory/Chest: chest wall non-tender, lungs clear Breasts: no masses Cardiovascular/Chest: normal peripheral pulses, normal rate Abdomen: normal bowel sounds, non tender Genitourinary/Rectal: normal genital exam Extremities: non-tender Skin Exam: normal pigmentation 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 grossly normal Last 24 Hour Vital Signs Date Time Temp Pulse Resp B/P (MAP) Pulse Ox O2 Delivery O2 Flow Rate FiO2 02/07/19 16:27 97.5 60 18 134/63 (86) 97 02/07/19 16:00 60 02/07/19 13:29 Room Air 02/07/19 12:47 97.8 60 18 135/57 96 Room Air 02/07/19 09:58 60 16 Room Air 02/07/19 09:58 98.4 60 16 137/55 99 Room Air 02/07/19 09:54 137/55 02/07/19 09:42 98.4 60 16 115/55 (75) 99 Room Air Laboratory Tests Test 02/07/19 09:55 White Blood Count 6.1 K/UL (4.8-10.8) Red Blood Count 3.12 M/UL (4.70-6.10) L Hemoglobin 10.4 G/DL (14.2-18.0) L Hematocrit 31.0 % (42.0-52.0) L Mean Corpuscular Volume 99 FL (80-99) Mean Corpuscular Hemoglobin 33.4 PG (27.0-31.0) H Mean Corpuscular Hemoglobin Concent 33.6 G/DL (32.0-36.0) Red Cell Distribution Width 13.1 % (11.6-14.8) Platelet Count 156 K/UL (150-450) Mean Platelet Volume 6.1 FL (6.5-10.1) L Neutrophils (%) (Auto) 74.2 % (45.0-75.0) Lymphocytes (%) (Auto) 13.6 % (20.0-45.0) L Monocytes (%) (Auto) 8.6 % (1.0-10.0) Eosinophils (%) (Auto) 2.9 % (0.0-3.0) Basophils (%) (Auto) 0.7 % (0.0-2.0) Prothrombin Time 12.7 SEC (9.30-11.50) H Prothromb Time International Ratio 1.2 (0.9-1.1) H Activated Partial Thromboplast Time 31 SEC (23-33) Sodium Level 138 MMOL/L (136-145) Potassium Level 3.9 MMOL/L (3.5-5.1) Chloride Level 101 MMOL/L (98-107) Carbon Dioxide Level 27 MMOL/L (21-32) Anion Gap 10 mmol/L (5-15) Blood Urea Nitrogen 27 mg/dL (7-18) H Creatinine 6.1 MG/DL (0.55-1.30) H Estimat Glomerular Filtration Rate mL/min (>60) Glucose Level 208 MG/DL (74-106) H Calcium Level 9.0 MG/DL (8.5-10.1) Total Bilirubin 1.1 MG/DL (0.2-1.0) H Direct Bilirubin 0.6 MG/DL (0.0-0.3) H Aspartate Amino Transf (AST/SGOT) 18 U/L (15-37) Alanine Aminotransferase (ALT/SGPT) 19 U/L (12-78) Alkaline Phosphatase 185 U/L (46-116) H Total Creatine Kinase 44 U/L (26-308) Creatine Kinase MB < 0.5 NG/ML (0.0-3.6) Creatine Kinase MB Relative Index 1.1 Troponin I 0.003 ng/mL (0.000-0.056) Pro-B-Type Natriuretic Peptide 70039 pg/mL (0-125) H Total Protein 6.9 G/DL (6.4-8.2) Albumin 2.7 G/DL (3.4-5.0) L Globulin 4.2 g/dL Albumin/Globulin Ratio 0.6 (1.0-2.7) L Lipase 59 U/L (73-393) L Height (Feet): 5 Height (Inches): 4.00 Weight (Pounds): 172 Medications Current Medications Medications (Trade) Dose Ordered Sig/Fernando Route PRN Reason Start Time Stop Time Status Last Admin Dose Admin Acetaminophen (Tylenol) 650 mg Q4H PRN ORAL FEVER 02/07/19 12:00 03/09/19 11:59 Albuterol/ Ipratropium (Albuterol/ Ipratropium) 3 ml Q4H PRN HHN Shortness of Breath 02/07/19 12:00 02/12/19 11:59 Amiodarone HCl (Cordarone) 200 mg DAILY ORAL 02/08/19 09:00 03/10/19 08:59 Aspirin (ASA) 81 mg DAILY ORAL 02/08/19 09:00 03/10/19 08:59 Carvedilol (Coreg) 25 mg EVERY 12 HOURS ORAL 02/07/19 21:00 03/09/19 20:59 Cefepime HCl 1 gm/ Dextrose 55 ml @ 110 mls/hr Q24H IVPB 02/07/19 21:00 02/14/19 20:59 Clopidogrel Bisulfate (Plavix) 75 mg DAILY ORAL 02/08/19 09:00 03/10/19 08:59 Dextrose (Dextrose 50%) 25 ml Q30M PRN IV Hypoglycemia 02/07/19 12:00 03/09/19 11:59 Dextrose (Dextrose 50%) 50 ml Q30M PRN IV Hypoglycemia 02/07/19 12:00 03/09/19 11:59 Diltiazem HCl (Cardizem) 10 mg Q1H PRN IV heart rate more than 120, 02/07/19 12:00 03/09/19 11:59 Enalaprilat (Vasotec) 2.5 mg Q6H PRN IV sbp more than 160 02/07/19 12:00 03/09/19 11:59 Gabapentin (Neurontin) 100 mg BID ORAL 02/07/19 18:00 03/09/19 17:59 02/07/19 17:19 Heparin Sodium (Porcine) (Heparin 5000 units/ml) 5,000 units EVERY 8 HOURS SUBQ 02/07/19 22:00 03/09/19 21:59 Insulin Aspart (NovoLOG) BEFORE MEALS AND HS SUBQ 02/07/19 16:30 03/09/19 16:29 02/07/19 17:20 Levetiracetam (Keppra) 500 mg EVERY 12 HOURS ORAL 02/07/19 21:00 03/09/19 20:59 Morphine Sulfate (Morphine Sulfate) 2 mg Q4H PRN IVP severe Pain (Pain Scale 7-10) 02/07/19 12:00 02/14/19 11:59 Nitroglycerin (Ntg) 0.4 mg Q5M PRN SL Prn Chest Pain 02/07/19 12:00 03/09/19 11:59 Ondansetron HCl (Zofran) 4 mg Q6H PRN IVP Nausea & Vomiting 02/07/19 12:00 03/09/19 11:59 Pantoprazole (Protonix) 40 mg DAILY ORAL 02/08/19 09:00 03/10/19 08:59 Paroxetine HCl (Paxil) 20 mg BEDTIME ORAL 02/07/19 21:00 03/09/19 20:59 Polyethylene Glycol (Miralax) 17 gm DAILYPRN PRN ORAL Constipation 02/07/19 12:00 03/09/19 11:59 Tamsulosin HCl (Flomax) 0.4 mg DAILY ORAL 02/08/19 09:00 03/10/19 08:59 Temazepam (Restoril) 15 mg HSPRN PRN ORAL Insomnia 02/07/19 12:00 02/14/19 11:59 Vancomycin/Sodium Chloride 275 ml @ 137.5 mls/ hr Q24H IVPB 02/07/19 11:00 02/12/19 10:59 02/07/19 11:00 Assessment/Plan Problem List: (1) ACS (acute coronary syndrome) ICD Codes: I24.9 - Acute ischemic heart disease, unspecified SNOMED: 935520656 (2) ESRF (end stage renal failure) ICD Codes: N18.6 - End stage renal disease SNOMED: 45355827 (3) AICD (automatic cardioverter/defibrillator) present ICD Codes: Z95.810 - Presence of automatic (implantable) cardiac defibrillator SNOMED: 42475541, 019023269 (4) BPH (benign prostatic hyperplasia) ICD Codes: N40.0 - Benign prostatic hyperplasia without lower urinary tract symptoms SNOMED: 976544942 (5) History of seizure ICD Codes: Z87.898 - Personal history of other specified conditions SNOMED: 613206151 (6) Diabetes mellitus ICD Codes: E11.9 - Type 2 diabetes mellitus without complications SNOMED: 90642664 Assessment/Plan: low probability for PE there is NO pneumonia on CXR serial ekg, troponin sliding scale diabetic diet seizure precaution dvt prophylaxis. Emiliano Castellanos MD Feb 07, 2019 18:15
--- NOTE | 2019-02-07 19:14 | NUR ---
HAND-OFF: Report given to ALICIA Bello. Plan of care endorsed.
--- NOTE | 2019-02-07 19:52 | NUR ---
HAND-OFF: Report given to Ayde Jacob. Plan of care endorsed.
--- NOTE | 2019-02-07 19:53 | NUR ---
NURSE NOTES: Received patient from ALICIA Smith. Pt is alert and oriented X 4. IV is patent. Bed is in lowest position, locked, side rails x2, bed alarm on, side rails padded, and call light is within reach. Will continue to monitor.
[2019-02-07 20:00] VITALS: BP 116/65
[2019-02-07] MEDS ORDERED: Cefepime HCl 1 GM in D5W 55 ML IVPB SCH (21:00)
[2019-02-07] MEDS: Carvedilol 25mg Tab ORAL SCH ×2 (21:00→21:38)
[2019-02-07] MEDS: Heparin 5000 units/ml inj SUBQ SCH (21:36)
[2019-02-07] MEDS: PARoxetine 20mg tab ORAL SCH (21:37)
[2019-02-08] VITALS: BP 139/64
[2019-02-08 04:00] VITALS: BP 112/61
[2019-02-08] MEDS: Heparin 5000 units/ml inj SUBQ SCH ×3 (06:54→22:17)
[2019-02-08] MEDS: NovoLOG Insulin Flexpen SUBQ SCH ×4 (06:55→22:18)
--- NOTE | 2019-02-08 07:32 | NUR ---
NURSE NOTES: Received report from ALICIA Erwin. AOX4 and able to make needs known. Eating breakfast in bed. IV in Right AC 20G SL patent and asymptomatic. Patient on room air, no respiratory distress noted. Denies pain/discomfort at this time. side rails x2 up for safety and lock engaged. Bed in its lowest position. Call light within reach. Seizure precaution implemented. Instructed to call for assistance, verbalized understanding. Will continue with plan of care.
--- NOTE | 2019-02-08 07:32 | NUR ---
HAND-OFF: Report given to Roddy Anderson, RN
[2019-02-08 08:00] VITALS: BP 147/62
[2019-02-08 08:08] LABS: BASOPHILS % (AUTO) 0.9 % (0.0-2.0); EOSINOPHILS % (AUTO) 4.9 % (0.0-3.0); HEMATOCRIT 30.3 % (42.0-52.0); HEMOGLOBIN 10.1 G/DL (14.2-18.0); LYMPHOCYTES % (AUTO) 12.3 % (20.0-45.0); MEAN CORPUSCULAR VOLUME 100 FL (80-99); MONOCYTES % (AUTO) 10.8 % (1.0-10.0); NEUTROPHILS % (AUTO) 71.2 % (45.0-75.0); PLATELET COUNT 156 K/UL (150-450); RED BLOOD COUNT 3.02 M/UL (4.70-6.10); RED CELL DISTRIBUTION WIDTH 13.7 % (11.6-14.8); WHITE BLOOD COUNT 6.2 K/UL (4.8-10.8)
[2019-02-08 08:11] LABS: INR 1.2 (0.9-1.1)
--- NOTE | 2019-02-08 08:47 | Cardiology Report ---
APPROVED REPORT EXAM: Two-dimensional and M-mode echocardiogram with Doppler and color Doppler. INDICATION LV FUNCTION M-Mode DIMENSIONS IVSd1.1 (0.7-1.1cm)Left Atrium (MM)4.2 (1.6-4.0cm) LVDd5.3 (3.5-5.6cm)Aortic Root3.2 (2.0-3.7cm) PWd0.9 (0.7-1.1cm)Aortic Cusp Exc.1.4 (1.5-2.0cm) IVSs2.2 cm LVDs3.2 (2.5-4.0cm) PWs1.1 cm Normal left ventricular chamber size, systolic function and wall motion . Left ventricular ejection fraction estimated to be 55-60 %. Mild left ventricular hypertrophy by 2-D. No evidence of pericardial effusion. Mild bi-atrial enlargement . Right ventricular chamber sizes is within normal limits. Focal aortic valve sclerosis with reduced cusp excursion. Thickened mitral valve leaflets with normal excursion. Mitral annulus and aortic root calcification. Normal pulmonic valve structure. Normal tricuspid valve structure. IVC dilated at 2.4cm without physiologic collapse suggestive of increased RA pressure. A color flow and spectral Doppler study was performed and revealed: Mild aortic regurgitation. Peak aortic valve gradient of 18 mm Hg and a mean of 8 mmHg. Aortic valve area 1.4 cm2 calculated by continuity equation. Mild mitral regurgitation. Mitral inflow velocities indicates possible pseudo normalization pattern implying moderately elevated left atrial pressure (Grade II ) Moderate tricuspid regurgitation. Tricuspid systolic velocities suggests peak right ventricular systolic pressure of 38 mmHg,consistent with mild pulmonary HTN.
[2019-02-08 09:27] LABS: ANION GAP 15 mmol/L (5-15); BLOOD UREA NITROGEN 33 mg/dL (7-18); CALCIUM 8.9 MG/DL (8.5-10.1); CARBON DIOXIDE 23 MMOL/L (21-32); CHLORIDE 101 MMOL/L (98-107); CHOLESTEROL 151 MG/DL (< 200); CREATININE 7.2 MG/DL (0.55-1.30); HDL CHOLESTEROL 33 MG/DL (40-60); POTASSIUM 4.7 MMOL/L (3.5-5.1); SODIUM 139 MMOL/L (136-145); TRIGLYCERIDES 81 MG/DL (30-150)
--- NOTE | 2019-02-08 09:28 | General Progress Note ---
Assessment/Plan Problem List: (1) Weak ICD Codes: R53.1 - Weakness SNOMED: 09997490 (2) Chest pain ICD Codes: R07.9 - Chest pain, unspecified SNOMED: 62573710 Qualifiers: Qualified Codes: R07.9 - Chest pain, unspecified (3) ACS (acute coronary syndrome) ICD Codes: I24.9 - Acute ischemic heart disease, unspecified SNOMED: 404381713 (4) ESRF (end stage renal failure) ICD Codes: N18.6 - End stage renal disease SNOMED: 30936766 (5) Diabetes mellitus ICD Codes: E11.9 - Type 2 diabetes mellitus without complications SNOMED: 57396639 (6) History of seizure ICD Codes: Z87.898 - Personal history of other specified conditions SNOMED: 526995131 (7) BPH (benign prostatic hyperplasia) ICD Codes: N40.0 - Benign prostatic hyperplasia without lower urinary tract symptoms SNOMED: 989564624 Status: stable, progressing Assessment/Plan: pt diet dialysis pain control cbc bmp am aru eval Subjective Constitutional: Reports: weakness Allergies: Coded Allergies: LOSARTAN (Verified Allergy, Unknown, 11/26/18) METOCLOPRAMIDE (Verified Allergy, Unknown, 11/26/18) [id number] REDUCTASE INHIBITOR (Verified Allergy, Unknown, 11/26/18) All Systems: reviewed and negative except above Subjective sl chest pain Objective Last 24 Hour Vital Signs Date Time Temp Pulse Resp B/P (MAP) Pulse Ox O2 Delivery O2 Flow Rate FiO2 02/08/19 08:00 98.1 60 18 147/62 (90) 95 02/08/19 04:00 98.1 61 20 112/61 (78) 94 02/08/19 04:00 60 02/08/19 00:00 60 02/08/19 00:00 98.3 60 20 139/64 (89) 94 02/07/19 21:00 Room Air 02/07/19 21:00 61 116/65 02/07/19 20:00 97.9 61 20 116/65 (82) 95 02/07/19 20:00 60 02/07/19 16:27 97.5 60 18 134/63 (86) 97 02/07/19 16:00 60 02/07/19 13:29 Room Air 02/07/19 12:47 97.8 60 18 135/57 96 Room Air 02/07/19 09:58 60 16 Room Air 02/07/19 09:58 98.4 60 16 137/55 99 Room Air 02/07/19 09:54 137/55 02/07/19 09:42 98.4 60 16 115/55 (75) 99 Room Air Intake and Output 02/07/19 02/08/19 19:00 07:00 Intake Total 295 ml 150 ml Balance 295 ml 150 ml Intake Oral 240 ml 150 ml IV Total 55 ml Laboratory Tests 02/07/19 09:55: White Blood Count 6.1, Red Blood Count 3.12L, Hemoglobin 10.4L, Hematocrit 31.0L , Mean Corpuscular Volume 99, Mean Corpuscular Hemoglobin 33.4H, Mean Corpuscular Hemoglobin Concent 33.6, Red Cell Distribution Width 13.1, Platelet Count 156, Mean Platelet Volume 6.1L, Neutrophils (%) (Auto) 74.2, Lymphocytes ( %) (Auto) 13.6L, Monocytes (%) (Auto) 8.6, Eosinophils (%) (Auto) 2.9, Basophils (%) (Auto) 0.7, Prothrombin Time 12.7H, Prothromb Time International Ratio 1.2H, Activated Partial Thromboplast Time 31, Sodium Level 138, Potassium Level 3.9, Chloride Level 101, Carbon Dioxide Level 27, Anion Gap 10, Blood Urea Nitrogen 27H, Creatinine 6.1H, Estimat Glomerular Filtration Rate , Glucose Level 208H, Calcium Level 9.0, Total Bilirubin 1.1H, Direct Bilirubin 0.6H, Aspartate Amino Transf (AST/SGOT) 18, Alanine Aminotransferase (ALT/SGPT) 19, Alkaline Phosphatase 185H, Total Creatine Kinase 44, Creatine Kinase MB < 0.5, Creatine Kinase MB Relative Index 1.1, Troponin I 0.003, Pro-B-Type Natriuretic Peptide 09943A, Total Protein 6.9, Albumin 2.7L, Globulin 4.2, Albumin/Globulin Ratio 0.6L, Lipase 59L 02/08/19 06:38: White Blood Count 6.2, Red Blood Count 3.02L, Hemoglobin 10.1L, Hematocrit 30.3L , Mean Corpuscular Volume 100H, Mean Corpuscular Hemoglobin 33.3H, Mean Corpuscular Hemoglobin Concent 33.2, Red Cell Distribution Width 13.7, Platelet Count 156, Mean Platelet Volume 7.0, Neutrophils (%) (Auto) 71.2, Lymphocytes (% ) (Auto) 12.3L, Monocytes (%) (Auto) 10.8H, Eosinophils (%) (Auto) 4.9H, Basophils (%) (Auto) 0.9, Prothrombin Time 12.6H, Prothromb Time International Ratio 1.2H, Activated Partial Thromboplast Time 32, Sodium Level [Pending], Potassium Level [Pending], Chloride Level [Pending], Carbon Dioxide Level [ Pending], Blood Urea Nitrogen [Pending], Creatinine [Pending], Estimat Glomerular Filtration Rate [Pending], Glucose Level [Pending], Calcium Level [ Pending], Troponin I 0.000, C-Reactive Protein, Quantitative 5.4H, Triglycerides Level [Pending], Cholesterol Level [Pending], LDL Cholesterol [ Pending], HDL Cholesterol [Pending], Cholesterol/HDL Ratio [Pending], Thyroid Stimulating Hormone (TSH) [Pending] Height (Feet): 5 Height (Inches): 4.00 Weight (Pounds): 154 General Appearance: lethargic EENT: normal ENT inspection Neck: normal alignment Cardiovascular: normal peripheral pulses, normal rate, regular rhythm Respiratory/Chest: chest wall non-tender, lungs clear, normal breath sounds Abdomen: normal bowel sounds, non tender, soft Extremities: normal inspection Edema: no edema noted Arm (L), no edema noted Arm (R), no edema noted Leg (L), no edema noted Leg (R), no edema noted Pedal (L), no edema noted Pedal (R), no edema noted Generalized Neurologic: motor weakness Skin: normal pigmentation, warm/dry Jethro Novoa DO Feb 08, 2019 09:28
[2019-02-08] MEDS: Aspirin Baby 81mg ORAL SCH (09:32)
[2019-02-08] MEDS: Carvedilol 25mg Tab ORAL SCH ×2 (09:32→22:17)
[2019-02-08] MEDS: Amiodarone 200mg tab ORAL SCH (09:32)
[2019-02-08] MEDS: Tamsulosin 0.4mg cap ORAL SCH (09:33)
--- NOTE | 2019-02-08 10:53 | Nephrology Progress Note ---
Assessment/Plan Problem List: (1) ESRF (end stage renal failure) (2) ACS (acute coronary syndrome) (3) Pneumonia (4) BPH (benign prostatic hyperplasia) Assessment Coded Allergies: LOSARTAN (Verified Allergy, Unknown, 11/26/18) METOCLOPRAMIDE (Verified Allergy, Unknown, 11/26/18) [id number] REDUCTASE INHIBITOR (Verified Allergy, Unknown, 11/26/18) Hx Cardiac Problems: Yes - CHF, hyperlipidemia Hx Pacemaker: Yes Hx Diabetes: Yes Hx Dialysis: Yes - MWF ACS ESRD HTN BPH DM Plan HD today ordered antibiotic pulmonary toilet Subjective ROS Limited/Unobtainable: No Constitutional: Reports: malaise, weakness Objective Objective Last 24 Hour Vital Signs Date Time Temp Pulse Resp B/P (MAP) Pulse Ox O2 Delivery O2 Flow Rate FiO2 02/08/19 09:32 60 147/62 02/08/19 09:00 Room Air 02/08/19 08:00 60 02/08/19 08:00 98.1 60 18 147/62 (90) 95 02/08/19 04:00 98.1 61 20 112/61 (78) 94 02/08/19 04:00 60 02/08/19 00:00 60 02/08/19 00:00 98.3 60 20 139/64 (89) 94 02/07/19 21:00 Room Air 02/07/19 21:00 61 116/65 02/07/19 20:00 97.9 61 20 116/65 (82) 95 02/07/19 20:00 60 02/07/19 16:27 97.5 60 18 134/63 (86) 97 02/07/19 16:00 60 02/07/19 13:29 Room Air 02/07/19 12:47 97.8 60 18 135/57 96 Room Air Intake and Output 02/07/19 02/08/19 19:00 07:00 Intake Total 295 ml 150 ml Balance 295 ml 150 ml Intake Oral 240 ml 150 ml IV Total 55 ml Laboratory Tests 02/08/19 06:38: White Blood Count 6.2, Red Blood Count 3.02L, Hemoglobin 10.1L, Hematocrit 30.3L , Mean Corpuscular Volume 100H, Mean Corpuscular Hemoglobin 33.3H, Mean Corpuscular Hemoglobin Concent 33.2, Red Cell Distribution Width 13.7, Platelet Count 156, Mean Platelet Volume 7.0, Neutrophils (%) (Auto) 71.2, Lymphocytes (% ) (Auto) 12.3L, Monocytes (%) (Auto) 10.8H, Eosinophils (%) (Auto) 4.9H, Basophils (%) (Auto) 0.9, Prothrombin Time 12.6H, Prothromb Time International Ratio 1.2H, Activated Partial Thromboplast Time 32, Sodium Level 139, Potassium Level 4.7, Chloride Level 101, Carbon Dioxide Level 23, Anion Gap 15, Blood Urea Nitrogen 33H, Creatinine 7.2H, Estimat Glomerular Filtration Rate , Glucose Level 116H, Calcium Level 8.9, Troponin I 0.000, C-Reactive Protein, Quantitative 5.4H, Triglycerides Level 81, Cholesterol Level 151, LDL Cholesterol 84, HDL Cholesterol 33L, Cholesterol/HDL Ratio 4.6H, Thyroid Stimulating Hormone (TSH) 0.332L Height (Feet): 5 Height (Inches): 4.00 Weight (Pounds): 154 General Appearance: no apparent distress, lethargic Cardiovascular: normal rate Respiratory/Chest: decreased breath sounds Abdomen: soft Manolo Grimes MD Feb 08, 2019 10:53
--- NOTE | 2019-02-08 11:33 | Cardiac Electrophysiology PN ---
Subjective Subjective [id number] Objective Last 24 Hour Vital Signs Date Time Temp Pulse Resp B/P (MAP) Pulse Ox O2 Delivery O2 Flow Rate FiO2 02/08/19 09:32 60 147/62 02/08/19 09:00 Room Air 02/08/19 08:00 60 02/08/19 08:00 98.1 60 18 147/62 (90) 95 02/08/19 04:00 98.1 61 20 112/61 (78) 94 02/08/19 04:00 60 02/08/19 00:00 60 02/08/19 00:00 98.3 60 20 139/64 (89) 94 02/07/19 21:00 Room Air 02/07/19 21:00 61 116/65 02/07/19 20:00 97.9 61 20 116/65 (82) 95 02/07/19 20:00 60 02/07/19 16:27 97.5 60 18 134/63 (86) 97 02/07/19 16:00 60 02/07/19 13:29 Room Air 02/07/19 12:47 97.8 60 18 135/57 96 Room Air Intake and Output 02/07/19 02/08/19 19:00 07:00 Intake Total 295 ml 150 ml Balance 295 ml 150 ml Intake Oral 240 ml 150 ml IV Total 55 ml Laboratory Tests Test 02/08/19 06:38 White Blood Count 6.2 K/UL (4.8-10.8) Red Blood Count 3.02 M/UL (4.70-6.10) L Hemoglobin 10.1 G/DL (14.2-18.0) L Hematocrit 30.3 % (42.0-52.0) L Mean Corpuscular Volume 100 FL (80-99) H Mean Corpuscular Hemoglobin 33.3 PG (27.0-31.0) H Mean Corpuscular Hemoglobin Concent 33.2 G/DL (32.0-36.0) Red Cell Distribution Width 13.7 % (11.6-14.8) Platelet Count 156 K/UL (150-450) Mean Platelet Volume 7.0 FL (6.5-10.1) Neutrophils (%) (Auto) 71.2 % (45.0-75.0) Lymphocytes (%) (Auto) 12.3 % (20.0-45.0) L Monocytes (%) (Auto) 10.8 % (1.0-10.0) H Eosinophils (%) (Auto) 4.9 % (0.0-3.0) H Basophils (%) (Auto) 0.9 % (0.0-2.0) Prothrombin Time 12.6 SEC (9.30-11.50) H Prothromb Time International Ratio 1.2 (0.9-1.1) H Activated Partial Thromboplast Time 32 SEC (23-33) Sodium Level 139 MMOL/L (136-145) Potassium Level 4.7 MMOL/L (3.5-5.1) Chloride Level 101 MMOL/L (98-107) Carbon Dioxide Level 23 MMOL/L (21-32) Anion Gap 15 mmol/L (5-15) Blood Urea Nitrogen 33 mg/dL (7-18) H Creatinine 7.2 MG/DL (0.55-1.30) H Estimat Glomerular Filtration Rate mL/min (>60) Glucose Level 116 MG/DL (74-106) H Calcium Level 8.9 MG/DL (8.5-10.1) Troponin I 0.000 ng/mL (0.000-0.056) C-Reactive Protein, Quantitative 5.4 mg/dL (0.00-0.90) H Triglycerides Level 81 MG/DL (30-150) Cholesterol Level 151 MG/DL (< 200) LDL Cholesterol 84 mg/dL (<100) HDL Cholesterol 33 MG/DL (40-60) L Cholesterol/HDL Ratio 4.6 (3.3-4.4) H Thyroid Stimulating Hormone (TSH) 0.332 uiU/mL (0.358-3.740) Reno Pinto MD Feb 08, 2019 11:33
[2019-02-08] MEDS: Lexiscan 0.4mg/5ml syringe IV SCH (11:45)
--- NOTE | 2019-02-08 11:47 | Cardiology Report ---
APPROVED REPORT EKG Measurement Heart [id number] Atrial paced, ventricular sensed rhythm Electronic pacemaker Cannot rule out Inferior infarct, age undetermined Possible Anterior infarct, age undetermined Abnormal ECG
[2019-02-08 12:00] VITALS: BP 140/64
--- NOTE | 2019-02-08 12:16 | Pulmonology Progress Note ---
Assessment/Plan Problems: (1) ACS (acute coronary syndrome) (2) ESRF (end stage renal failure) (3) AICD (automatic cardioverter/defibrillator) present (4) BPH (benign prostatic hyperplasia) (5) History of seizure (6) Diabetes mellitus Assessment/Plan low probability for PE there is NO pneumonia on CXR serial ekg, troponin sliding scale diabetic diet seizure precaution dvt prophylaxis. Subjective ROS Limited/Unobtainable: No Constitutional: Reports: no symptoms HEENT: Repors: no symptoms Allergies: Coded Allergies: LOSARTAN (Verified Allergy, Unknown, 11/26/18) METOCLOPRAMIDE (Verified Allergy, Unknown, 11/26/18) [id number] REDUCTASE INHIBITOR (Verified Allergy, Unknown, 11/26/18) Objective Last 24 Hour Vital Signs Date Time Temp Pulse Resp B/P (MAP) Pulse Ox O2 Delivery O2 Flow Rate FiO2 02/08/19 09:32 60 147/62 02/08/19 09:00 Room Air 02/08/19 08:00 60 02/08/19 08:00 98.1 60 18 147/62 (90) 95 02/08/19 04:00 98.1 61 20 112/61 (78) 94 02/08/19 04:00 60 02/08/19 00:00 60 02/08/19 00:00 98.3 60 20 139/64 (89) 94 02/07/19 21:00 Room Air 02/07/19 21:00 61 116/65 02/07/19 20:00 97.9 61 20 116/65 (82) 95 02/07/19 20:00 60 02/07/19 16:27 97.5 60 18 134/63 (86) 97 02/07/19 16:00 60 02/07/19 13:29 Room Air 02/07/19 12:47 97.8 60 18 135/57 96 Room Air Intake and Output 02/07/19 02/08/19 19:00 07:00 Intake Total 295 ml 150 ml Balance 295 ml 150 ml Intake Oral 240 ml 150 ml IV Total 55 ml General Appearance: WD/WN HEENT: normocephalic, atraumatic Respiratory/Chest: chest wall non-tender, lungs clear Cardiovascular: normal peripheral pulses, normal rate Abdomen: soft, non tender, no organomegaly Genitourinary: normal external genitalia Extremities: no clubbing Neurologic/Psychiatric: abnormal gait Lymphatic: no neck adenopathy Musculoskeletal: normal muscle bulk Laboratory Tests 02/08/19 06:38: White Blood Count 6.2, Red Blood Count 3.02L, Hemoglobin 10.1L, Hematocrit 30.3L , Mean Corpuscular Volume 100H, Mean Corpuscular Hemoglobin 33.3H, Mean Corpuscular Hemoglobin Concent 33.2, Red Cell Distribution Width 13.7, Platelet Count 156, Mean Platelet Volume 7.0, Neutrophils (%) (Auto) 71.2, Lymphocytes (% ) (Auto) 12.3L, Monocytes (%) (Auto) 10.8H, Eosinophils (%) (Auto) 4.9H, Basophils (%) (Auto) 0.9, Prothrombin Time 12.6H, Prothromb Time International Ratio 1.2H, Activated Partial Thromboplast Time 32, Sodium Level 139, Potassium Level 4.7, Chloride Level 101, Carbon Dioxide Level 23, Anion Gap 15, Blood Urea Nitrogen 33H, Creatinine 7.2H, Estimat Glomerular Filtration Rate , Glucose Level 116H, Calcium Level 8.9, Troponin I 0.000, C-Reactive Protein, Quantitative 5.4H, Triglycerides Level 81, Cholesterol Level 151, LDL Cholesterol 84, HDL Cholesterol 33L, Cholesterol/HDL Ratio 4.6H, Thyroid Stimulating Hormone (TSH) 0.332L 02/08/19 11:56: Troponin I [Pending] Current Medications Medications (Trade) Dose Ordered Sig/Fernando Route PRN Reason Start Time Stop Time Status Last Admin Dose Admin Acetaminophen (Tylenol) 650 mg Q4H PRN ORAL FEVER 02/07/19 12:00 03/09/19 11:59 Albuterol/ Ipratropium (Albuterol/ Ipratropium) 3 ml Q4H PRN HHN Shortness of Breath 02/07/19 12:00 02/12/19 11:59 Amiodarone HCl (Cordarone) 200 mg DAILY ORAL 02/08/19 09:00 03/10/19 08:59 02/08/19 09:32 Aspirin (ASA) 81 mg DAILY ORAL 02/08/19 09:00 03/10/19 08:59 02/08/19 09:32 Carvedilol (Coreg) 25 mg EVERY 12 HOURS ORAL 02/07/19 21:00 03/09/19 20:59 02/08/19 09:32 Cefepime HCl 1 gm/ Dextrose 55 ml @ 110 mls/hr Q24H IVPB 02/07/19 21:00 02/14/19 20:59 02/07/19 21:39 Clopidogrel Bisulfate (Plavix) 75 mg DAILY ORAL 02/08/19 09:00 03/10/19 08:59 02/08/19 09:33 Dextrose (Dextrose 50%) 25 ml Q30M PRN IV Hypoglycemia 02/07/19 12:00 03/09/19 11:59 Dextrose (Dextrose 50%) 50 ml Q30M PRN IV Hypoglycemia 02/07/19 12:00 03/09/19 11:59 Diltiazem HCl (Cardizem) 10 mg Q1H PRN IV heart rate more than 120, 02/07/19 12:00 03/09/19 11:59 Enalaprilat (Vasotec) 2.5 mg Q6H PRN IV sbp more than 160 02/07/19 12:00 03/09/19 11:59 Gabapentin (Neurontin) 100 mg BID ORAL 02/07/19 18:00 03/09/19 17:59 02/08/19 09:33 Heparin Sodium (Porcine) (Heparin 5000 units/ml) 5,000 units EVERY 8 HOURS SUBQ 02/07/19 22:00 03/09/19 21:59 02/08/19 06:54 Insulin Aspart (NovoLOG) BEFORE MEALS AND HS SUBQ 02/07/19 16:30 03/09/19 16:29 02/08/19 06:55 Levetiracetam (Keppra) 500 mg EVERY 12 HOURS ORAL 02/07/19 21:00 03/09/19 20:59 02/08/19 09:32 Morphine Sulfate (Morphine Sulfate) 2 mg Q4H PRN IVP severe Pain (Pain Scale 7-10) 02/07/19 12:00 02/14/19 11:59 Nitroglycerin (Ntg) 0.4 mg Q5M PRN SL Prn Chest Pain 02/07/19 12:00 03/09/19 11:59 Ondansetron HCl (Zofran) 4 mg Q6H PRN IVP Nausea & Vomiting 02/07/19 12:00 03/09/19 11:59 Pantoprazole (Protonix) 40 mg DAILY ORAL 02/08/19 09:00 03/10/19 08:59 02/08/19 09:32 Paroxetine HCl (Paxil) 20 mg BEDTIME ORAL 02/07/19 21:00 03/09/19 20:59 02/07/19 21:37 Polyethylene Glycol (Miralax) 17 gm DAILYPRN PRN ORAL Constipation 02/07/19 12:00 03/09/19 11:59 Regadenoson (Lexiscan) 0.4 mg ONCE IV 02/08/19 11:45 02/09/19 23:59 Tamsulosin HCl (Flomax) 0.4 mg DAILY ORAL 02/08/19 09:00 03/10/19 08:59 02/08/19 09:33 Temazepam (Restoril) 15 mg HSPRN PRN ORAL Insomnia 02/07/19 12:00 02/14/19 11:59 Emiliano Castellanos MD Feb 08, 2019 12:16
--- NOTE | 2019-02-08 12:23 | Consultation ---
History of Present Illness General Date patient seen: Feb 08, 2019 Chief Complaint: Chest Pain Reason for Consultation: inpatient management Present Illness HPI 73 y/o M with hx of HTN, HLD, ESRD on HD TTS, s/p PPM/AICD, seizure disorder, Anemia of chronic kidney disease, BPH, neuropathy, CAD, Dm2, [place] resident presented to ED on 02/07 with 1 day of chest pain, mild SOB. Chest pain described as pressure quality Denied n/v/d, f/c Allergies: Coded Allergies: LOSARTAN (Verified Allergy, Unknown, 11/26/18) METOCLOPRAMIDE (Verified Allergy, Unknown, 11/26/18) [id number] REDUCTASE INHIBITOR (Verified Allergy, Unknown, 11/26/18) Medication History Scheduled Amino Acids/Protein Hydrolys (Pro-Stat Liquid), 30 ML ORAL DAILY, (Reported) Amiodarone Hcl* (Cordarone*), 200 MG ORAL DAILY, (Reported) Amlodipine Besylate* (Amlodipine Besylate*), 10 MG ORAL DAILY, (Reported) Aspirin* (Aspirin*), 81 MG ORAL DAILY, (Reported) Carvedilol* (Carvedilol*), 25 MG ORAL EVERY 12 HOURS, (Reported) Cefpodoxime Proxetil (Cefpodoxime Proxetil), 200 MG PO Q12HR, (Reported) Clonidine Hcl (Clonidine Hcl), 0.1 MG PO BID, (Reported) Clopidogrel* (Clopidogrel*), 75 MG ORAL DAILY, (Reported) Cranberry Fruit Concentrate (Cranberry), 450 MG PO BID, (Reported) Docusate Sodium (Docusate Sodium), 100 MG ORAL BID, (Reported) Dutasteride (Avodart), 0.5 MG ORAL DAILY, (Reported) Folic Acid* (Folic Acid*), 1 MG ORAL DAILY, (Reported) Gabapentin* (Gabapentin*), 100 MG ORAL BID, (Reported) Hydralazine Hcl* (Hydralazine Hcl*), 25 MG ORAL EVERY 8 HOURS, (Reported) Levetiracetam (Keppra), 500 MG ORAL EVERY 12 HOURS, (Reported) Levetiracetam (Keppra), 750 MG ORAL BID, (Reported) Magnesium Hydroxide* (Milk Of Magnesia*), 30 ML ORAL BEDTIME, (Reported) Metronidazole* (Flagyl*), 250 MG ORAL EVERY 8 HOURS, (Reported) Pantoprazole* (Protonix*), 40 MG ORAL DAILY, (Reported) Paroxetine Hcl* (Paxil*), 20 MG ORAL BEDTIME, (Reported) Sevelamer Hcl (Renagel), 800 MG ORAL THREE TIMES A DAY, (Reported) Tamsulosin HCl (Flomax), 0.4 MG ORAL DAILY, (Reported) Vitamin B Cmplx/Vit C/Folic AC (Nephro-John Tablet), 1 TAB ORAL DAILY, (Reported ) Scheduled PRN Acetaminophen* (Acetaminophen 325MG Tablet*), 650 MG ORAL Q6HR PRN for Pain Scale (3-5), (Reported) Acetaminophen* (Acetaminophen Extra Strength*), 500 MG ORAL Q6H PRN for Pain Scale (6-10), (Reported) Bisacodyl (Dulcolax), 10 MG RC DAILY PRN for Constipation, (Reported) Dextran 70/Hypromellose (Artificial Tears Eye Drops*), 2 DROP BOTH EYES BID PRN for Dry Eyes, (Reported) Glucagon,Human Recombinant (Glucagon Emergency Kit), 1 MG IJ for HYPOGLYCEMIA, ( Reported) Melatonin (Melatonin 5 Mg Tablet), 1 TAB ORAL BEDTIME PRN for Insomnia, ( Reported) Na Phos,M-B/Na Phos,Di-Ba* (Fleet Enema*), 133 ML RECTAL DAILY PRN for Constipation, (Reported) Nitroglycerin (Nitrostat), 0.4 MG SL Q5M X3 DOSES PRN for CHEST PAIN, (Reported) Miscellaneous Medications Dextran 70/Hypromellose (Artificial Tears Eye Drops*), 1 DROP BOTH EYES, ( Reported) Insulin Regular, Human (Humulin R), 0 SUBQ, (Reported) Isosorbide Mononitrate (Isosorbide Mononitrate Er), 30 MG PO, (Reported) Patient History Healthcare decision maker Resuscitation status Full Code Advanced Directive on File Patient History Narrative Pmhx: as above Shx: No smoking. No alcohol. No intravenous drug Fhx: non contributory Review of Systems All Other Systems: negative except mentioned in HPI Physical Exam Physical Exam Narrative GENERAL: Calm in bed, oriented x2, in no acute distress. CARDIOVASCULAR: No murmur. LUNGS: Distant and clear. ABDOMEN: Bowel sounds positive. Nontender. Nondistended. EXTREMITIES: No cyanosis, clubbing, or edema. NEUROLOGIC: The patient moves all extremities, slightly weak. Last 24 Hour Vital Signs Date Time Temp Pulse Resp B/P (MAP) Pulse Ox O2 Delivery O2 Flow Rate FiO2 02/08/19 09:32 60 147/62 02/08/19 09:00 Room Air 02/08/19 08:00 60 02/08/19 08:00 98.1 60 18 147/62 (90) 95 02/08/19 04:00 98.1 61 20 112/61 (78) 94 02/08/19 04:00 60 02/08/19 00:00 60 02/08/19 00:00 98.3 60 20 139/64 (89) 94 02/07/19 21:00 Room Air 02/07/19 21:00 61 116/65 02/07/19 20:00 97.9 61 20 116/65 (82) 95 02/07/19 20:00 60 02/07/19 16:27 97.5 60 18 134/63 (86) 97 02/07/19 16:00 60 02/07/19 13:29 Room Air 02/07/19 12:47 97.8 60 18 135/57 96 Room Air Intake and Output 02/07/19 02/08/19 19:00 07:00 Intake Total 295 ml 150 ml Balance 295 ml 150 ml Intake Oral 240 ml 150 ml IV Total 55 ml Laboratory Tests Test 02/08/19 06:38 02/08/19 11:56 White Blood Count 6.2 K/UL (4.8-10.8) Red Blood Count 3.02 M/UL (4.70-6.10) L Hemoglobin 10.1 G/DL (14.2-18.0) L Hematocrit 30.3 % (42.0-52.0) L Mean Corpuscular Volume 100 FL (80-99) H Mean Corpuscular Hemoglobin 33.3 PG (27.0-31.0) H Mean Corpuscular Hemoglobin Concent 33.2 G/DL (32.0-36.0) Red Cell Distribution Width 13.7 % (11.6-14.8) Platelet Count 156 K/UL (150-450) Mean Platelet Volume 7.0 FL (6.5-10.1) Neutrophils (%) (Auto) 71.2 % (45.0-75.0) Lymphocytes (%) (Auto) 12.3 % (20.0-45.0) L Monocytes (%) (Auto) 10.8 % (1.0-10.0) H Eosinophils (%) (Auto) 4.9 % (0.0-3.0) H Basophils (%) (Auto) 0.9 % (0.0-2.0) Prothrombin Time 12.6 SEC (9.30-11.50) H Prothromb Time International Ratio 1.2 (0.9-1.1) H Activated Partial Thromboplast Time 32 SEC (23-33) Sodium Level 139 MMOL/L (136-145) Potassium Level 4.7 MMOL/L (3.5-5.1) Chloride Level 101 MMOL/L (98-107) Carbon Dioxide Level 23 MMOL/L (21-32) Anion Gap 15 mmol/L (5-15) Blood Urea Nitrogen 33 mg/dL (7-18) H Creatinine 7.2 MG/DL (0.55-1.30) H Estimat Glomerular Filtration Rate mL/min (>60) Glucose Level 116 MG/DL (74-106) H Calcium Level 8.9 MG/DL (8.5-10.1) Troponin I 0.000 ng/mL (0.000-0.056) Pending C-Reactive Protein, Quantitative 5.4 mg/dL (0.00-0.90) H Triglycerides Level 81 MG/DL (30-150) Cholesterol Level 151 MG/DL (< 200) LDL Cholesterol 84 mg/dL (<100) HDL Cholesterol 33 MG/DL (40-60) L Cholesterol/HDL Ratio 4.6 (3.3-4.4) H Thyroid Stimulating Hormone (TSH) 0.332 uiU/mL (0.358-3.740) Height (Feet): 5 Height (Inches): 4.00 Weight (Pounds): 154 Medications Current Medications Medications (Trade) Dose Ordered Sig/Fernando Route PRN Reason Start Time Stop Time Status Last Admin Dose Admin Acetaminophen (Tylenol) 650 mg Q4H PRN ORAL FEVER 02/07/19 12:00 03/09/19 11:59 Albuterol/ Ipratropium (Albuterol/ Ipratropium) 3 ml Q4H PRN HHN Shortness of Breath 02/07/19 12:00 02/12/19 11:59 Amiodarone HCl (Cordarone) 200 mg DAILY ORAL 02/08/19 09:00 03/10/19 08:59 02/08/19 09:32 Aspirin (ASA) 81 mg DAILY ORAL 02/08/19 09:00 03/10/19 08:59 02/08/19 09:32 Carvedilol (Coreg) 25 mg EVERY 12 HOURS ORAL 02/07/19 21:00 03/09/19 20:59 02/08/19 09:32 Cefepime HCl 1 gm/ Dextrose 55 ml @ 110 mls/hr Q24H IVPB 02/07/19 21:00 02/14/19 20:59 02/07/19 21:39 Clopidogrel Bisulfate (Plavix) 75 mg DAILY ORAL 02/08/19 09:00 03/10/19 08:59 02/08/19 09:33 Dextrose (Dextrose 50%) 25 ml Q30M PRN IV Hypoglycemia 02/07/19 12:00 03/09/19 11:59 Dextrose (Dextrose 50%) 50 ml Q30M PRN IV Hypoglycemia 02/07/19 12:00 03/09/19 11:59 Diltiazem HCl (Cardizem) 10 mg Q1H PRN IV heart rate more than 120, 02/07/19 12:00 03/09/19 11:59 Enalaprilat (Vasotec) 2.5 mg Q6H PRN IV sbp more than 160 02/07/19 12:00 03/09/19 11:59 Gabapentin (Neurontin) 100 mg BID ORAL 02/07/19 18:00 03/09/19 17:59 02/08/19 09:33 Heparin Sodium (Porcine) (Heparin 5000 units/ml) 5,000 units EVERY 8 HOURS SUBQ 02/07/19 22:00 03/09/19 21:59 02/08/19 06:54 Insulin Aspart (NovoLOG) BEFORE MEALS AND HS SUBQ 02/07/19 16:30 03/09/19 16:29 02/08/19 06:55 Levetiracetam (Keppra) 500 mg EVERY 12 HOURS ORAL 02/07/19 21:00 03/09/19 20:59 02/08/19 09:32 Morphine Sulfate (Morphine Sulfate) 2 mg Q4H PRN IVP severe Pain (Pain Scale 7-10) 02/07/19 12:00 02/14/19 11:59 Nitroglycerin (Ntg) 0.4 mg Q5M PRN SL Prn Chest Pain 02/07/19 12:00 03/09/19 11:59 Ondansetron HCl (Zofran) 4 mg Q6H PRN IVP Nausea & Vomiting 02/07/19 12:00 03/09/19 11:59 Pantoprazole (Protonix) 40 mg DAILY ORAL 02/08/19 09:00 03/10/19 08:59 02/08/19 09:32 Paroxetine HCl (Paxil) 20 mg BEDTIME ORAL 02/07/19 21:00 03/09/19 20:59 02/07/19 21:37 Polyethylene Glycol (Miralax) 17 gm DAILYPRN PRN ORAL Constipation 02/07/19 12:00 03/09/19 11:59 Regadenoson (Lexiscan) 0.4 mg ONCE IV 02/08/19 11:45 02/09/19 23:59 Tamsulosin HCl (Flomax) 0.4 mg DAILY ORAL 02/08/19 09:00 03/10/19 08:59 02/08/19 09:33 Temazepam (Restoril) 15 mg HSPRN PRN ORAL Insomnia 02/07/19 12:00 02/14/19 11:59 Assessment/Plan Assessment/Plan: Abx: IV Vancomycin x1 02/07 Cefepime 02/07- Assessment: Chest pain Pneumonia -CXR: Accentuation of bronchovascular markings. Mild consolidation in the left lung base. -troponins neg x2 Afebrile No leukocytosis HTN HLD ESRD on HD TTS s/p PPM/AICD seizure disorder Anemia of chronic kidney disease BPH neuropathy CAD Dm2 [place] resident Plan: -Switch Cefepime #2/5-7 to Ceftriaxone for PNA -f/u cx -Monitor CBC/CMP, temperatures Thank you for this consultation. Will continue to follow along with you. Discussed with Patricia Carpenter M.D. Feb 08, 2019 12:23
[2019-02-08] MEDS ORDERED: Lexiscan 0.4mg/5ml syringe IV PRN (14:01)
[2019-02-08] MEDS ORDERED: GLUCOSE GEL38 GM PO (14:52)
--- NOTE | 2019-02-08 15:06 | NUR ---
CASE MANAGEMENT:REVIEW 73 YR OLD MALE BIBA FROM [facility] CC: CHEST PAIN PMH: ESRD ON HD SI: CHEST PAIN. PNEUMONIA TROPONIN(-) BUN+27 CR+6.1 BNP+00566 98.4 60 16 115/55 99% ON RA IS: ASA PO GIVEN DRY CLEANER NTG SPRAY X2 DRY CLEANER IV CEFEPIME NTG 1" TO CHEST CHEST XRAY : TO TELEMETRY DCP: RETURN TO [facility]
[2019-02-08] MEDS ORDERED: SENNA8.6 M2 PO (15:21)
[2019-02-08] MEDS ORDERED: RANOLAZINE ER1000 MG PO (15:21)
[2019-02-08] MEDS ORDERED: UTI-STAT L3875 MG/31 PO (15:21)
[2019-02-08] MEDS ORDERED: VITAMIN D400 INTLU ORAL (15:21)
[2019-02-08 16:00] VITALS: BP_SYST 116; BP_SYST 159; BP_DIAS 61; BP_DIAS 68
--- NOTE | 2019-02-08 16:29 | NUR ---
P.T Note: P.T evaluation completed and tx initiated. Please refer to P.T evaluation for current functional status. Addendum: 02/08/19 at 1629 by THIAGO LAGUNA PT Amended: Links added.
--- NOTE | 2019-02-08 19:19 | NUR ---
HAND-OFF: Report given to Jean-Pierre VARGAS. Pt remains stable.
--- NOTE | 2019-02-08 19:20 | NUR ---
NURSE NOTES: Received pt from Lindsay VARGAS. Pt is AAO X4, VSS, on room air, in bed, with no signs of acute distress. Isolation precaution observed, pt is awake, talking, and skin issues noted. Right 20g IV patent with no drainage. Bed at its lowest position, recommended side rails are up, and call light in reach.
[2019-02-08 20:00] VITALS: BP 144/62
--- NOTE | 2019-02-08 20:45 | Consultation ---
DATE OF CONSULTATION: 02/08/2019 CARDIOLOGY CONSULTATION CONSULTING PHYSICIAN: Reno Pinto M.D. REFERRING PHYSICIAN: Jethro Novoa D.O. REASON FOR CONSULTATION: Management of coronary artery disease, atrial fibrillation, evaluation of the patient's defibrillator. HISTORY OF PRESENT ILLNESS: The patient is a 73-year-old gentleman that I am quite familiar with from his previous admission just a couple months ago. The patient has history of hypertension, coronary artery disease, history of coronary artery bypass graft as well as paroxysmal atrial fibrillation, as well as history of right-sided [employer] defibrillator implantation who is on dialysis every Friday, , and Friday. The patient presented to the emergency room complaining of chest pain last evening. He also had mild shortness of breath. At the time of my evaluation, patient is quite comfortable. Denies any chest pain, palpitation, or shortness of breath. REVIEW OF SYSTEMS: Review of systems was negative other than what is mentioned in the history of present illness. PAST MEDICAL HISTORY: As mentioned above. FAMILY HISTORY: Noncontributory. SOCIAL HISTORY: Denies smoke or drinking alcohol. PHYSICAL EXAMINATION: VITAL SIGNS: Show blood pressure 147/62, pulse 60, respirations 18, and temperature 98.1. HEAD AND NECK: No JVD or carotid bruits. LUNGS: Clear. CARDIOVASCULAR: Regular S1 and S2 with no gallop. Defibrillator is in the right subclavian. ABDOMEN: Soft. EXTREMITIES: Have AV shunt to the left arm with bilateral ankle edema. LABORATORY AND DIAGNOSTIC DATA: Labs show white count of 6.2, hemoglobin 10.1, hematocrit 30, and platelet count is 156,000. Sodium is 139, potassium 4.7, BUN of 32, creatinine 7.5, glucose of 116. INR is 1.2. ASSESSMENT AND PLAN: 1. Chest pain, the patient with history of coronary artery bypass graft. EKG showed no acute ischemic changes and is atrially paced. Troponin was initially ordered to rule out for myocardial infarction by serial cardiac enzymes. We will schedule the patient for stress test for further evaluation. 2. Congestive heart failure and volume overload. BNP of more than 21,000. The patient is on hemodialysis and Coreg. 3. Status post dual-chamber [employer] right-sided defibrillator implantation, last month ICD was checked, that started 5 years with no arrhythmia. 4. History of paroxysmal atrial fibrillation, atrially paced rhythm, on amiodarone 200 mg daily. Hold off anticoagulation as ICD showed no arrhythmias. 5. End-stage renal disease, on hemodialysis. 6. History of seizures, on Keppra. 7. Diabetes on insulin. Thank you very much for allowing me to participate in the care of this patient. Please do not hesitate to contact me for any questions regarding my evaluation. Sincerely, Reno Pinto M.D. DR: Sophia JOB#: [id number] CC:
[2019-02-08] MEDS: PARoxetine 20mg tab ORAL SCH (22:16)
[2019-02-08] MEDS: cefTRIAXone 1 GM in D5W 55 ML IVPB SCH (22:18)
[2019-02-09] VITALS: BP 102/66
[2019-02-09 04:00] VITALS: BP 111/75
[2019-02-09] MEDS: NovoLOG Insulin Flexpen SUBQ SCH ×5 (05:40→21:29)
[2019-02-09] MEDS: Heparin 5000 units/ml inj SUBQ SCH ×3 (05:41→21:29)
[2019-02-09 06:26] LABS: EOSINOPHILS % (AUTO) 5.3 % (0.0-3.0); HEMATOCRIT 31.2 % (42.0-52.0); HEMOGLOBIN 10.6 G/DL (14.2-18.0); LYMPHOCYTES % (AUTO) 15.7 % (20.0-45.0); MEAN CORPUSCULAR VOLUME 99 FL (80-99); MONOCYTES % (AUTO) 11.3 % (1.0-10.0); NEUTROPHILS % (AUTO) 66.6 % (45.0-75.0); PLATELET COUNT 128 K/UL (150-450); RED BLOOD COUNT 3.14 M/UL (4.70-6.10); RED CELL DISTRIBUTION WIDTH 13.4 % (11.6-14.8); WHITE BLOOD COUNT 5.9 K/UL (4.8-10.8)
--- NOTE | 2019-02-09 07:00 | NUR ---
NURSE NOTES: Received report from ALICIA Morejon. AOX4 and able to make needs known. On NPO for stress test today. IV in Right AC 20G SL patent and asymptomatic. Patient on room air, no respiratory distress noted. Denies pain at this time. side rails x2 up for safety and lock engaged. Bed in its lowest position. Call light within reach. Seizure precaution implemented. Will continue with plan of care.
--- NOTE | 2019-02-09 07:00 | NUR ---
HAND-OFF: Report given to Lindsay VARGAS.
--- NOTE | 2019-02-09 07:09 | CDS Physician Query ---
Clarification is required for compliance, coding accuracy, and to reflect severity of illness for this patient Dear Patricia Floyd M.D. Date: 02/09/2019 CDS: Clyde Franklin A diagnosis of "Pneumonia" is documented, and the patient is on: CXR: Accentuation of bronchovascular markings. Mild consolidation in the left lung base. Tx: IV CEFEPIME, IV CEFTRIAXONE Please specify the underlying etiology: [] Gram +Positive Organism(s) [] Anaerobes [] Gram -Negative Organism(s) [] Aspiration [] Pseudomonas [] Mycoplasma [] MRSA [] Not Applicable [] Other organism(s). Please specify: Present on Admission: [] Yes [] No [] Clinically Undetermined Physician signature Date Please also document in your Progress Notes and/or Discharge Summary and indicate if the condition was present on admission. MTDD
[2019-02-09 07:13] LABS: ALANINE AMINOTRANSFERASE 18 U/L (12-78); ALBUMIN 2.7 G/DL (3.4-5.0); ALBUMIN/GLOBULIN RATIO 0.7 (1.0-2.7); ANION GAP 14 mmol/L (5-15); BILIRUBIN,TOTAL 0.9 MG/DL (0.2-1.0); BLOOD UREA NITROGEN 23 mg/dL (7-18); CALCIUM 8.9 MG/DL (8.5-10.1); CARBON DIOXIDE 28 MMOL/L (21-32); CHLORIDE 100 MMOL/L (98-107); CREATININE 5.9 MG/DL (0.55-1.30); FERRITIN 644 NG/ML (8-388); PHOSPHORUS 2.9 MG/DL (2.5-4.9); SODIUM 141 MMOL/L (136-145)
[2019-02-09 07:22] LABS: GAMMA GLUTAMYL TRANSPEPTIDASE 333 U/L (5-85)
[2019-02-09 07:25] LABS: ALKALINE PHOSPHATASE 195 U/L (46-116); ASPARTATE AMINO TRANSFERASE 22 U/L (15-37)
[2019-02-09 08:00] VITALS: BP 123/74
[2019-02-09 08:16] LABS: % IRON SATURATION 31 % (15-50); IRON 47 ug/dL (50-175); TOTAL IRON BINDING CAPACITY 154 ug/dL (250-450)
[2019-02-09] MEDS: Carvedilol 25mg Tab ORAL SCH ×2 (09:00→21:00)
[2019-02-09] MEDS: Aspirin Baby 81mg ORAL SCH (09:17)
[2019-02-09] MEDS: Tamsulosin 0.4mg cap ORAL SCH (09:17)
[2019-02-09] MEDS: Amiodarone 200mg tab ORAL SCH (09:56)
--- NOTE | 2019-02-09 10:14 | Pulmonology Progress Note ---
Assessment/Plan Problems: (1) ACS (acute coronary syndrome) (2) ESRF (end stage renal failure) (3) AICD (automatic cardioverter/defibrillator) present (4) BPH (benign prostatic hyperplasia) (5) History of seizure (6) Diabetes mellitus Assessment/Plan low probability for PE there is NO pneumonia on CXR serial ekg, troponin sliding scale diabetic diet seizure precaution dvt prophylaxis. Subjective ROS Limited/Unobtainable: No Constitutional: Reports: no symptoms HEENT: Repors: no symptoms Respiratory: Reports: no symptoms Allergies: Coded Allergies: LOSARTAN (Verified Allergy, Unknown, 11/26/18) METOCLOPRAMIDE (Verified Allergy, Unknown, 11/26/18) [id number] REDUCTASE INHIBITOR (Verified Allergy, Unknown, 11/26/18) Objective Last 24 Hour Vital Signs Date Time Temp Pulse Resp B/P (MAP) Pulse Ox O2 Delivery O2 Flow Rate FiO2 02/09/19 09:00 60 123/74 02/09/19 08:00 60 02/09/19 08:00 97.7 61 20 123/74 (90) 96 02/09/19 04:00 98.0 64 18 111/75 (87) 94 02/09/19 04:00 60 02/09/19 00:00 60 02/09/19 00:00 97.8 61 18 102/66 (78) 95 02/08/19 22:17 61 144/62 02/08/19 21:00 Room Air 02/08/19 20:00 98.0 61 18 144/62 (89) 98 02/08/19 19:21 60 02/08/19 16:00 98.4 60 18 159/61 (93) 95 02/08/19 16:00 60 02/08/19 12:00 97.2 55 20 140/64 (89) 97 02/08/19 12:00 60 Intake and Output 02/08/19 02/09/19 19:00 07:00 Intake Total 120 ml 55 ml Balance 120 ml 55 ml Intake Oral 120 ml IV Total 55 ml General Appearance: WD/WN, no acute distress HEENT: normocephalic Respiratory/Chest: chest wall non-tender, lungs clear Cardiovascular: normal peripheral pulses, normal rate, regular rhythm Abdomen: normal bowel sounds, soft, non tender Genitourinary: normal external genitalia Extremities: no clubbing Skin: no lesions Microbiology Date/Time Source Procedure Growth Status 02/07/19 11:45 Nasal Nares Left MRSA Culture - Final NO METHICILLIN RESISTANT STAPH AUREUS... Complete 02/07/19 11:45 Rectum VRE Culture - Final NO VANCOMYCIN RESISTANT ENTEROCOCCUS ... Complete Laboratory Tests 02/08/19 11:56: Troponin I 0.009, Hepatitis B Surface Antigen Negative 02/09/19 05:05: Troponin I 0.000, White Blood Count 5.9, Red Blood Count 3.14L, Hemoglobin 10.6L , Hematocrit 31.2L, Mean Corpuscular Volume 99, Mean Corpuscular Hemoglobin 33.8H, Mean Corpuscular Hemoglobin Concent 34.1, Red Cell Distribution Width 13.4, Platelet Count 128L, Mean Platelet Volume 6.3L, Neutrophils (%) (Auto) 66.6, Lymphocytes (%) (Auto) 15.7L, Monocytes (%) (Auto) 11.3H, Eosinophils (%) (Auto) 5.3H, Basophils (%) (Auto) 1.0, Sodium Level 141, Potassium Level 4.0, Chloride Level 100, Carbon Dioxide Level 28, Anion Gap 14, Blood Urea Nitrogen 23H, Creatinine 5.9H, Estimat Glomerular Filtration Rate , Glucose Level 117H, Hemoglobin A1c 5.5, Uric Acid 4.0, Calcium Level 8.9, Phosphorus Level 2.9, Magnesium Level 2.2, Iron Level 47L, Total Iron Binding Capacity 154L, Percent Iron Saturation 31, Unsaturated Iron Binding 107L, Ferritin 644H, Total Bilirubin 0.9, Gamma Glutamyl Transpeptidase 333H, Aspartate Amino Transf (AST/ SGOT) 22, Alanine Aminotransferase (ALT/SGPT) 18, Alkaline Phosphatase 195H, C- Reactive Protein, Quantitative 4.6H, Pro-B-Type Natriuretic Peptide 63481H, Total Protein 6.7, Albumin 2.7L, Globulin 4.0, Albumin/Globulin Ratio 0.7L, Vitamin B12 Level 756, Folate 50.1 Current Medications Medications (Trade) Dose Ordered Sig/Fernando Route PRN Reason Start Time Stop Time Status Last Admin Dose Admin Acetaminophen (Tylenol) 650 mg Q4H PRN ORAL FEVER 02/07/19 12:00 03/09/19 11:59 Albuterol/ Ipratropium (Albuterol/ Ipratropium) 3 ml Q4H PRN HHN Shortness of Breath 02/07/19 12:00 02/12/19 11:59 Amiodarone HCl (Cordarone) 200 mg DAILY ORAL 02/08/19 09:00 03/10/19 08:59 02/09/19 09:56 Aspirin (ASA) 81 mg DAILY ORAL 02/08/19 09:00 03/10/19 08:59 02/09/19 09:17 Carvedilol (Coreg) 25 mg EVERY 12 HOURS ORAL 02/07/19 21:00 03/09/19 20:59 02/08/19 22:17 Ceftriaxone Sodium 1 gm/ Dextrose 55 ml @ 110 mls/hr Q24H IVPB 02/08/19 21:00 02/15/19 20:59 02/08/19 22:18 Clopidogrel Bisulfate (Plavix) 75 mg DAILY ORAL 02/08/19 09:00 03/10/19 08:59 02/09/19 09:18 Dextrose (Dextrose 50%) 25 ml Q30M PRN IV Hypoglycemia 02/07/19 12:00 03/09/19 11:59 Dextrose (Dextrose 50%) 50 ml Q30M PRN IV Hypoglycemia 02/07/19 12:00 03/09/19 11:59 Diltiazem HCl (Cardizem) 10 mg Q1H PRN IV heart rate more than 120, 02/07/19 12:00 03/09/19 11:59 Enalaprilat (Vasotec) 2.5 mg Q6H PRN IV sbp more than 160 02/07/19 12:00 03/09/19 11:59 Gabapentin (Neurontin) 100 mg BID ORAL 02/07/19 18:00 03/09/19 17:59 02/09/19 09:18 Heparin Sodium (Porcine) (Heparin 5000 units/ml) 5,000 units EVERY 8 HOURS SUBQ 02/07/19 22:00 03/09/19 21:59 02/09/19 05:41 Insulin Aspart (NovoLOG) BEFORE MEALS AND HS SUBQ 02/07/19 16:30 03/09/19 16:29 02/08/19 22:18 Levetiracetam (Keppra) 500 mg EVERY 12 HOURS ORAL 02/07/19 21:00 03/09/19 20:59 02/09/19 09:17 Morphine Sulfate (Morphine Sulfate) 2 mg Q4H PRN IVP severe Pain (Pain Scale 7-10) 02/07/19 12:00 02/14/19 11:59 Nitroglycerin (Ntg) 0.4 mg Q5M PRN SL Prn Chest Pain 02/07/19 12:00 03/09/19 11:59 Ondansetron HCl (Zofran) 4 mg Q6H PRN IVP Nausea & Vomiting 02/07/19 12:00 03/09/19 11:59 Pantoprazole (Protonix) 40 mg DAILY ORAL 02/08/19 09:00 03/10/19 08:59 02/09/19 09:17 Paroxetine HCl (Paxil) 20 mg BEDTIME ORAL 02/07/19 21:00 03/09/19 20:59 02/08/19 22:16 Polyethylene Glycol (Miralax) 17 gm DAILYPRN PRN ORAL Constipation 02/07/19 12:00 03/09/19 11:59 Regadenoson (Lexiscan) 0.4 mg ONCE IV 02/08/19 11:45 02/09/19 11:50 Regadenoson (Lexiscan) 0.4 mg ONCE PRN IV CARDIOLOGY 02/08/19 14:01 02/10/19 14:00 Tamsulosin HCl (Flomax) 0.4 mg DAILY ORAL 02/08/19 09:00 03/10/19 08:59 02/09/19 09:17 Temazepam (Restoril) 15 mg HSPRN PRN ORAL Insomnia 02/07/19 12:00 02/14/19 11:59 Emiliano Castellanos MD Feb 09, 2019 10:14
--- NOTE | 2019-02-09 10:36 | Cardiac Electrophysiology PN ---
Assessment/Plan Assessment/Plan 1. Chest pain, CABG hx EKG showed no acute ischemic changes and is atrially paced. Troponins were negative, Stress test today pending 2. Congestive heart failure and volume overload. BNP of more than 21,000. The patient is on hemodialysis and Coreg.EF 55% 3. Status post dual-chamber [employer] right-sided defibrillator implantation, last month ICD was checked, that started 5 years with no arrhythmia. 4. History of paroxysmal atrial fibrillation, atrially paced rhythm, on amiodarone 200 mg daily.On aspirin and Plavix Hold off anticoagulation as ICD showed no arrhythmias. 5. End-stage renal disease, on hemodialysis. 6. History of seizures, on Keppra. 7. Diabetes on insulin. MARIANA RN Subjective Subjective Scheduled for stress test today. No CP or SOB. In SR Objective Last 24 Hour Vital Signs Date Time Temp Pulse Resp B/P (MAP) Pulse Ox O2 Delivery O2 Flow Rate FiO2 02/09/19 09:00 60 123/74 02/09/19 08:00 60 02/09/19 08:00 97.7 61 20 123/74 (90) 96 02/09/19 04:00 98.0 64 18 111/75 (87) 94 02/09/19 04:00 60 02/09/19 00:00 60 02/09/19 00:00 97.8 61 18 102/66 (78) 95 02/08/19 22:17 61 144/62 02/08/19 21:00 Room Air 02/08/19 20:00 98.0 61 18 144/62 (89) 98 02/08/19 19:21 60 02/08/19 16:00 98.4 60 18 159/61 (93) 95 02/08/19 16:00 60 02/08/19 12:00 97.2 55 20 140/64 (89) 97 02/08/19 12:00 60 Intake and Output 02/08/19 02/09/19 19:00 07:00 Intake Total 120 ml 55 ml Balance 120 ml 55 ml Intake Oral 120 ml IV Total 55 ml Laboratory Tests Test 02/08/19 11:56 02/09/19 05:05 Troponin I 0.009 ng/mL (0.000-0.056) 0.000 ng/mL (0.000-0.056) Hepatitis B Surface Antigen Negative (NEGATIVE) White Blood Count 5.9 K/UL (4.8-10.8) Red Blood Count 3.14 M/UL (4.70-6.10) L Hemoglobin 10.6 G/DL (14.2-18.0) L Hematocrit 31.2 % (42.0-52.0) L Mean Corpuscular Volume 99 FL (80-99) Mean Corpuscular Hemoglobin 33.8 PG (27.0-31.0) H Mean Corpuscular Hemoglobin Concent 34.1 G/DL (32.0-36.0) Red Cell Distribution Width 13.4 % (11.6-14.8) Platelet Count 128 K/UL (150-450) L Mean Platelet Volume 6.3 FL (6.5-10.1) L Neutrophils (%) (Auto) 66.6 % (45.0-75.0) Lymphocytes (%) (Auto) 15.7 % (20.0-45.0) L Monocytes (%) (Auto) 11.3 % (1.0-10.0) H Eosinophils (%) (Auto) 5.3 % (0.0-3.0) H Basophils (%) (Auto) 1.0 % (0.0-2.0) Sodium Level 141 MMOL/L (136-145) Potassium Level 4.0 MMOL/L (3.5-5.1) Chloride Level 100 MMOL/L (98-107) Carbon Dioxide Level 28 MMOL/L (21-32) Anion Gap 14 mmol/L (5-15) Blood Urea Nitrogen 23 mg/dL (7-18) H Creatinine 5.9 MG/DL (0.55-1.30) H Estimat Glomerular Filtration Rate mL/min (>60) Glucose Level 117 MG/DL (74-106) H Hemoglobin A1c 5.5 % (4.3-6.0) Uric Acid 4.0 MG/DL (2.6-7.2) Calcium Level 8.9 MG/DL (8.5-10.1) Phosphorus Level 2.9 MG/DL (2.5-4.9) Magnesium Level 2.2 MG/DL (1.8-2.4) Iron Level 47 ug/dL (50-175) L Total Iron Binding Capacity 154 ug/dL (250-450) L Percent Iron Saturation 31 % (15-50) Unsaturated Iron Binding 107 ug/dL (112-346) L Ferritin 644 NG/ML (8-388) H Total Bilirubin 0.9 MG/DL (0.2-1.0) Gamma Glutamyl Transpeptidase 333 U/L (5-85) H Aspartate Amino Transf (AST/SGOT) 22 U/L (15-37) Alanine Aminotransferase (ALT/SGPT) 18 U/L (12-78) Alkaline Phosphatase 195 U/L (46-116) H C-Reactive Protein, Quantitative 4.6 mg/dL (0.00-0.90) H Pro-B-Type Natriuretic Peptide 02418 pg/mL (0-125) H Total Protein 6.7 G/DL (6.4-8.2) Albumin 2.7 G/DL (3.4-5.0) L Globulin 4.0 g/dL Albumin/Globulin Ratio 0.7 (1.0-2.7) L Vitamin B12 Level 756 PG/ML (193-986) Folate 50.1 NG/ML (8.6-58.9) Microbiology Date/Time Source Procedure Growth Status 02/07/19 11:45 Nasal Nares Left MRSA Culture - Final NO METHICILLIN RESISTANT STAPH AUREUS... Complete 02/07/19 11:45 Rectum VRE Culture - Final NO VANCOMYCIN RESISTANT ENTEROCOCCUS ... Complete Objective HEAD AND NECK: No JVD or carotid bruits. LUNGS: Clear. CARDIOVASCULAR: Regular S1 and S2 with no gallop. Defibrillator is in the right subclavian. ABDOMEN: Soft. EXTREMITIES: Have AV shunt to the left arm with bilateral ankle edema. Reno Pinto MD Feb 09, 2019 10:36
--- NOTE | 2019-02-09 11:17 | NUR ---
P.T Note: P.T services not given. Pt is out the unit for series of stress test. Will reattempt post stress test.
--- NOTE | 2019-02-09 11:40 | Nephrology Progress Note ---
Assessment/Plan Problem List: (1) ESRF (end stage renal failure) (2) ACS (acute coronary syndrome) (3) Pneumonia (4) BPH (benign prostatic hyperplasia) (5) AICD (automatic cardioverter/defibrillator) present Assessment Coded Allergies: LOSARTAN (Verified Allergy, Unknown, 11/26/18) METOCLOPRAMIDE (Verified Allergy, Unknown, 11/26/18) [id number] REDUCTASE INHIBITOR (Verified Allergy, Unknown, 11/26/18) Hx Cardiac Problems: Yes - CHF, hyperlipidemia Hx Pacemaker: Yes Hx Diabetes: Yes Hx Dialysis: Yes - MWF ACS ESRD HTN BPH DM Plan HD 02/08 repeat 02/10 antibiotic pulmonary toilet optimize cardiac status due stress test Subjective ROS Limited/Unobtainable: No Constitutional: Reports: malaise Objective Objective Last 24 Hour Vital Signs Date Time Temp Pulse Resp B/P (MAP) Pulse Ox O2 Delivery O2 Flow Rate FiO2 02/09/19 09:00 Room Air 02/09/19 09:00 60 123/74 02/09/19 08:00 60 02/09/19 08:00 97.7 61 20 123/74 (90) 96 02/09/19 04:00 98.0 64 18 111/75 (87) 94 02/09/19 04:00 60 02/09/19 00:00 60 02/09/19 00:00 97.8 61 18 102/66 (78) 95 02/08/19 22:17 61 144/62 02/08/19 21:00 Room Air 02/08/19 20:00 98.0 61 18 144/62 (89) 98 02/08/19 19:21 60 02/08/19 16:00 98.4 60 18 159/61 (93) 95 02/08/19 16:00 60 02/08/19 12:00 97.2 55 20 140/64 (89) 97 02/08/19 12:00 60 Intake and Output 02/08/19 02/09/19 19:00 07:00 Intake Total 120 ml 55 ml Balance 120 ml 55 ml Intake Oral 120 ml IV Total 55 ml Laboratory Tests 02/08/19 11:56: Troponin I 0.009, Hepatitis B Surface Antigen Negative 02/09/19 05:05: Troponin I 0.000, White Blood Count 5.9, Red Blood Count 3.14L, Hemoglobin 10.6L , Hematocrit 31.2L, Mean Corpuscular Volume 99, Mean Corpuscular Hemoglobin 33.8H, Mean Corpuscular Hemoglobin Concent 34.1, Red Cell Distribution Width 13.4, Platelet Count 128L, Mean Platelet Volume 6.3L, Neutrophils (%) (Auto) 66.6, Lymphocytes (%) (Auto) 15.7L, Monocytes (%) (Auto) 11.3H, Eosinophils (%) (Auto) 5.3H, Basophils (%) (Auto) 1.0, Sodium Level 141, Potassium Level 4.0, Chloride Level 100, Carbon Dioxide Level 28, Anion Gap 14, Blood Urea Nitrogen 23H, Creatinine 5.9H, Estimat Glomerular Filtration Rate , Glucose Level 117H, Hemoglobin A1c 5.5, Uric Acid 4.0, Calcium Level 8.9, Phosphorus Level 2.9, Magnesium Level 2.2, Iron Level 47L, Total Iron Binding Capacity 154L, Percent Iron Saturation 31, Unsaturated Iron Binding 107L, Ferritin 644H, Total Bilirubin 0.9, Gamma Glutamyl Transpeptidase 333H, Aspartate Amino Transf (AST/ SGOT) 22, Alanine Aminotransferase (ALT/SGPT) 18, Alkaline Phosphatase 195H, C- Reactive Protein, Quantitative 4.6H, Pro-B-Type Natriuretic Peptide [id number], Total Protein 6.7, Albumin 2.7L, Globulin 4.0, Albumin/Globulin Ratio 0.7L, Vitamin B12 Level 756, Folate 50.1 Height (Feet): 5 Height (Inches): 4.00 Weight (Pounds): 150 General Appearance: no apparent distress Objective no change Manolo Grimes MD Feb 09, 2019 11:40
[2019-02-09] MEDS: Lexiscan 0.4mg/5ml syringe IV SCH (11:45)
[2019-02-09] MEDS ORDERED: Lexiscan 0.4mg/5ml syringe IV SCH (11:45)
[2019-02-09 12:00] VITALS: BP 146/63
--- NOTE | 2019-02-09 12:02 | Infectious Diseases Prog Note ---
Assessment/Plan Assessment/Plan Assessment: Chest pain Pneumonia -CXR: Accentuation of bronchovascular markings. Mild consolidation in the left lung base. -troponins neg x2 Afebrile No leukocytosis HTN HLD ESRD on HD TTS s/p PPM/AICD seizure disorder Anemia of chronic kidney disease BPH neuropathy CAD Dm2 [place] resident Plan: -Continue Ceftriaxone #2 (abx d #3/5-7 for PNA) -02/08 SP Cefepime #2 -02/07 SP IV Vancomycin x1 -f/u cx -Monitor CBC/CMP, temperatures Thank you for this consultation. Will continue to follow along with you. Discussed with RN Subjective Allergies: Coded Allergies: LOSARTAN (Verified Allergy, Unknown, 11/26/18) METOCLOPRAMIDE (Verified Allergy, Unknown, 11/26/18) [id number] REDUCTASE INHIBITOR (Verified Allergy, Unknown, 11/26/18) Subjective afebrile no leukocytosis Objective Vital Signs Last 24 Hour Vital Signs Date Time Temp Pulse Resp B/P (MAP) Pulse Ox O2 Delivery O2 Flow Rate FiO2 02/09/19 09:00 Room Air 02/09/19 09:00 60 123/74 02/09/19 08:00 60 02/09/19 08:00 97.7 61 20 123/74 (90) 96 02/09/19 04:00 98.0 64 18 111/75 (87) 94 02/09/19 04:00 60 02/09/19 00:00 60 02/09/19 00:00 97.8 61 18 102/66 (78) 95 02/08/19 22:17 61 144/62 02/08/19 21:00 Room Air 02/08/19 20:00 98.0 61 18 144/62 (89) 98 02/08/19 19:21 60 02/08/19 16:00 98.4 60 18 159/61 (93) 95 02/08/19 16:00 60 Height (Feet): 5 Height (Inches): 4.00 Weight (Pounds): 150 Objective GENERAL: Calm in bed, oriented x2, in no acute distress. CARDIOVASCULAR: No murmur. LUNGS: Distant and clear. ABDOMEN: Bowel sounds positive. Nontender. Nondistended. EXTREMITIES: No cyanosis, clubbing, or edema. NEUROLOGIC: The patient moves all extremities, slightly weak. Microbiology Date/Time Source Procedure Growth Status 02/07/19 11:45 Nasal Nares Left MRSA Culture - Final NO METHICILLIN RESISTANT STAPH AUREUS... Complete 02/07/19 11:45 Rectum VRE Culture - Final NO VANCOMYCIN RESISTANT ENTEROCOCCUS ... Complete Laboratory Tests Test 02/09/19 05:05 White Blood Count 5.9 K/UL (4.8-10.8) Red Blood Count 3.14 M/UL (4.70-6.10) L Hemoglobin 10.6 G/DL (14.2-18.0) L Hematocrit 31.2 % (42.0-52.0) L Mean Corpuscular Volume 99 FL (80-99) Mean Corpuscular Hemoglobin 33.8 PG (27.0-31.0) H Mean Corpuscular Hemoglobin Concent 34.1 G/DL (32.0-36.0) Red Cell Distribution Width 13.4 % (11.6-14.8) Platelet Count 128 K/UL (150-450) L Mean Platelet Volume 6.3 FL (6.5-10.1) L Neutrophils (%) (Auto) 66.6 % (45.0-75.0) Lymphocytes (%) (Auto) 15.7 % (20.0-45.0) L Monocytes (%) (Auto) 11.3 % (1.0-10.0) H Eosinophils (%) (Auto) 5.3 % (0.0-3.0) H Basophils (%) (Auto) 1.0 % (0.0-2.0) Sodium Level 141 MMOL/L (136-145) Potassium Level 4.0 MMOL/L (3.5-5.1) Chloride Level 100 MMOL/L (98-107) Carbon Dioxide Level 28 MMOL/L (21-32) Anion Gap 14 mmol/L (5-15) Blood Urea Nitrogen 23 mg/dL (7-18) H Creatinine 5.9 MG/DL (0.55-1.30) H Estimat Glomerular Filtration Rate mL/min (>60) Glucose Level 117 MG/DL (74-106) H Hemoglobin A1c 5.5 % (4.3-6.0) Uric Acid 4.0 MG/DL (2.6-7.2) Calcium Level 8.9 MG/DL (8.5-10.1) Phosphorus Level 2.9 MG/DL (2.5-4.9) Magnesium Level 2.2 MG/DL (1.8-2.4) Iron Level 47 ug/dL (50-175) L Total Iron Binding Capacity 154 ug/dL (250-450) L Percent Iron Saturation 31 % (15-50) Unsaturated Iron Binding 107 ug/dL (112-346) L Ferritin 644 NG/ML (8-388) H Total Bilirubin 0.9 MG/DL (0.2-1.0) Gamma Glutamyl Transpeptidase 333 U/L (5-85) H Aspartate Amino Transf (AST/SGOT) 22 U/L (15-37) Alanine Aminotransferase (ALT/SGPT) 18 U/L (12-78) Alkaline Phosphatase 195 U/L (46-116) H Troponin I 0.000 ng/mL (0.000-0.056) C-Reactive Protein, Quantitative 4.6 mg/dL (0.00-0.90) H Pro-B-Type Natriuretic Peptide 46990 pg/mL (0-125) H Total Protein 6.7 G/DL (6.4-8.2) Albumin 2.7 G/DL (3.4-5.0) L Globulin 4.0 g/dL Albumin/Globulin Ratio 0.7 (1.0-2.7) L Vitamin B12 Level 756 PG/ML (193-986) Folate 50.1 NG/ML (8.6-58.9) Current Medications Medications (Trade) Dose Ordered Sig/Fernando Route PRN Reason Start Time Stop Time Status Last Admin Dose Admin Acetaminophen (Tylenol) 650 mg Q4H PRN ORAL FEVER 02/07/19 12:00 03/09/19 11:59 Albuterol/ Ipratropium (Albuterol/ Ipratropium) 3 ml Q4H PRN HHN Shortness of Breath 02/07/19 12:00 02/12/19 11:59 Amiodarone HCl (Cordarone) 200 mg DAILY ORAL 02/08/19 09:00 03/10/19 08:59 02/09/19 09:56 Aspirin (ASA) 81 mg DAILY ORAL 02/08/19 09:00 03/10/19 08:59 02/09/19 09:17 Carvedilol (Coreg) 25 mg EVERY 12 HOURS ORAL 02/07/19 21:00 03/09/19 20:59 02/08/19 22:17 Ceftriaxone Sodium 1 gm/ Dextrose 55 ml @ 110 mls/hr Q24H IVPB 02/08/19 21:00 02/15/19 20:59 02/08/19 22:18 Clopidogrel Bisulfate (Plavix) 75 mg DAILY ORAL 02/08/19 09:00 03/10/19 08:59 02/09/19 09:18 Dextrose (Dextrose 50%) 25 ml Q30M PRN IV Hypoglycemia 02/07/19 12:00 03/09/19 11:59 Dextrose (Dextrose 50%) 50 ml Q30M PRN IV Hypoglycemia 02/07/19 12:00 03/09/19 11:59 Diltiazem HCl (Cardizem) 10 mg Q1H PRN IV heart rate more than 120, 02/07/19 12:00 03/09/19 11:59 Enalaprilat (Vasotec) 2.5 mg Q6H PRN IV sbp more than 160 02/07/19 12:00 03/09/19 11:59 Gabapentin (Neurontin) 100 mg BID ORAL 02/07/19 18:00 03/09/19 17:59 02/09/19 09:18 Heparin Sodium (Porcine) (Heparin 5000 units/ml) 5,000 units EVERY 8 HOURS SUBQ 02/07/19 22:00 03/09/19 21:59 02/09/19 05:41 Insulin Aspart (NovoLOG) BEFORE MEALS AND HS SUBQ 02/07/19 16:30 03/09/19 16:29 02/08/19 22:18 Levetiracetam (Keppra) 500 mg EVERY 12 HOURS ORAL 02/07/19 21:00 03/09/19 20:59 02/09/19 09:17 Morphine Sulfate (Morphine Sulfate) 2 mg Q4H PRN IVP severe Pain (Pain Scale 7-10) 02/07/19 12:00 02/14/19 11:59 Nitroglycerin (Ntg) 0.4 mg Q5M PRN SL Prn Chest Pain 02/07/19 12:00 03/09/19 11:59 Ondansetron HCl (Zofran) 4 mg Q6H PRN IVP Nausea & Vomiting 02/07/19 12:00 03/09/19 11:59 Pantoprazole (Protonix) 40 mg DAILY ORAL 02/08/19 09:00 03/10/19 08:59 02/09/19 09:17 Paroxetine HCl (Paxil) 20 mg BEDTIME ORAL 02/07/19 21:00 03/09/19 20:59 02/08/19 22:16 Polyethylene Glycol (Miralax) 17 gm DAILYPRN PRN ORAL Constipation 02/07/19 12:00 03/09/19 11:59 Regadenoson (Lexiscan) 0.4 mg ONCE PRN IV CARDIOLOGY 02/08/19 14:01 02/10/19 14:00 Tamsulosin HCl (Flomax) 0.4 mg DAILY ORAL 02/08/19 09:00 03/10/19 08:59 02/09/19 09:17 Temazepam (Restoril) 15 mg HSPRN PRN ORAL Insomnia 02/07/19 12:00 02/14/19 11:59 Patricia Ortiz M.D. Feb 09, 2019 12:02
--- NOTE | 2019-02-09 12:14 | NUR ---
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 97.9 HR 61 RR 20 B/P 111/75 BUN 25 CR 5.9 GGT 333 ALK PHOS 195 BNP 03012 IS: CEFEPIME IV PROTONIX HEPARIN SUBC CARDIZEM PO STRESS TEST TELE STATUS
--- NOTE | 2019-02-09 13:41 | Hematology/Onc Progress Note ---
Assessment/Plan Assessment/Plan Assessment/Plan # Thrombocytopenia - potential causes multifactorial, evaluate liver and viral etiologies to begin, also could be related to underlying medications patient has received. --> Hep panel and HIV NR --> US abd to evaluate for cirrhosis and hsm consider to order --> Peripheral smear ordered to evaluate for blasts /schistocytes --> abx and other meds have been reviewed --> ok for ppx if plt >50k w/ either heparin or lovenox --> Transfuse if Plt < 20k and fever, or if Plt < 10k without fever --> plt trend 156-->128k # Anemia of chronic disease due to underlying chronic medical issues, multifactorial (likely in this case due to kidney disease) --> Anemia workup has been reviewed and ferritin 644 --> No evidence of hemolysis is noted, peripheral smear has been reviewed --> Hgb goal >7. Transfuse prn. --> Epogen or iron at this time is not particularly indicated --> if lower hgb consider epo --> Medications have been reviewed --> low threshold for gi evaluation in case has occult + --> hgb trend 10.1-->10.6 # Congestive heart failure and volume overload. BNP of more than 21,000. The patient is on hemodialysis and Coreg.EF 55% --> per renal HD --> stress test with cards # Status post dual-chamber [employer] right-sided defibrillator implantation, last month ICD was checked, that started 5 years with no arrhythmia. --> hold off anticoag # History of paroxysmal atrial fibrillation, atrially paced rhythm, on amiodarone 200 mg daily. --> asa/plavix # End-stage renal disease, on hemodialysis. --> per renal, hd 3x week # History of seizures, on Keppra. # Diabetes on insulin. # Dvt ppx scds The timing of this note does not necessarily reflect the time of the patient was seen. Greatly appreciate consultation. Subjective Constitutional: Denies: no symptoms, chills, fever, malaise, weakness, other HEENT: Denies: no symptoms, eye pain, blurred vision, tearing, double vision, ear pain, ear discharge, nose pain, nose congestion, throat pain, throat swelling, mouth pain, mouth swelling, other Cardiovascular: Denies: no symptoms, chest pain, edema, irregular heart rate, lightheadedness, palpitations, syncope, other Respiratory: Denies: no symptoms, cough, shortness of breath, SOB with excertion, SOB at rest, sputum, wheezing, other Gastrointestinal/Abdominal: Denies: no symptoms, abdomen distended, abdominal pain, black stools, tarry stools, blood in stool, constipated, diarrhea, difficulty swallowing, nausea, poor appetite, poor fluid intake, rectal bleeding , vomiting, other Genitourinary: Denies: no symptoms, burning, discharge, frequency, flank pain, hematuria, incontinence, pain, urgency, other Neurologic/Psychiatric: Denies: no symptoms, anxiety, depressed, emotional problems, headache, numbness, paresthesia, pre-existing deficit, seizure, tingling, tremors, weakness, other Endocrine: Denies: no symptoms, excessive sweating, flushing, intolerance to cold, intolerance to heat, increased hunger, increased thirst, increased urine, unexplained weight gain, unexplained weight loss, other Allergies: Coded Allergies: LOSARTAN (Verified Allergy, Unknown, 11/26/18) METOCLOPRAMIDE (Verified Allergy, Unknown, 11/26/18) [id number] REDUCTASE INHIBITOR (Verified Allergy, Unknown, 11/26/18) Subjective 02/09: no fevers or chills, no bleeding, labs noted Objective Objective Current Medications Medications (Trade) Dose Ordered Sig/Fernando Route PRN Reason Start Time Stop Time Status Last Admin Dose Admin Acetaminophen (Tylenol) 650 mg Q4H PRN ORAL FEVER 02/07/19 12:00 03/09/19 11:59 Albuterol/ Ipratropium (Albuterol/ Ipratropium) 3 ml Q4H PRN HHN Shortness of Breath 02/07/19 12:00 02/12/19 11:59 Amiodarone HCl (Cordarone) 200 mg DAILY ORAL 02/08/19 09:00 03/10/19 08:59 02/09/19 09:56 Aspirin (ASA) 81 mg DAILY ORAL 02/08/19 09:00 03/10/19 08:59 02/09/19 09:17 Carvedilol (Coreg) 25 mg EVERY 12 HOURS ORAL 02/07/19 21:00 03/09/19 20:59 02/08/19 22:17 Ceftriaxone Sodium 1 gm/ Dextrose 55 ml @ 110 mls/hr Q24H IVPB 02/08/19 21:00 02/15/19 20:59 02/08/19 22:18 Clopidogrel Bisulfate (Plavix) 75 mg DAILY ORAL 02/08/19 09:00 03/10/19 08:59 02/09/19 09:18 Dextrose (Dextrose 50%) 25 ml Q30M PRN IV Hypoglycemia 02/07/19 12:00 03/09/19 11:59 Dextrose (Dextrose 50%) 50 ml Q30M PRN IV Hypoglycemia 02/07/19 12:00 03/09/19 11:59 Diltiazem HCl (Cardizem) 10 mg Q1H PRN IV heart rate more than 120, 02/07/19 12:00 03/09/19 11:59 Enalaprilat (Vasotec) 2.5 mg Q6H PRN IV sbp more than 160 02/07/19 12:00 03/09/19 11:59 Gabapentin (Neurontin) 100 mg BID ORAL 02/07/19 18:00 03/09/19 17:59 02/09/19 09:18 Heparin Sodium (Porcine) (Heparin 5000 units/ml) 5,000 units EVERY 8 HOURS SUBQ 02/07/19 22:00 03/09/19 21:59 02/09/19 05:41 Insulin Aspart (NovoLOG) BEFORE MEALS AND HS SUBQ 02/07/19 16:30 03/09/19 16:29 02/08/19 22:18 Levetiracetam (Keppra) 500 mg EVERY 12 HOURS ORAL 02/07/19 21:00 03/09/19 20:59 02/09/19 09:17 Morphine Sulfate (Morphine Sulfate) 2 mg Q4H PRN IVP severe Pain (Pain Scale 7-10) 02/07/19 12:00 02/14/19 11:59 Nitroglycerin (Ntg) 0.4 mg Q5M PRN SL Prn Chest Pain 02/07/19 12:00 03/09/19 11:59 Ondansetron HCl (Zofran) 4 mg Q6H PRN IVP Nausea & Vomiting 02/07/19 12:00 03/09/19 11:59 Pantoprazole (Protonix) 40 mg DAILY ORAL 9/9/19 09:00 03/10/19 08:59 02/09/19 09:17 Paroxetine HCl (Paxil) 20 mg BEDTIME ORAL 02/07/19 21:00 03/09/19 20:59 02/08/19 22:16 Polyethylene Glycol (Miralax) 17 gm DAILYPRN PRN ORAL Constipation 02/07/19 12:00 03/09/19 11:59 Regadenoson (Lexiscan) 0.4 mg ONCE PRN IV CARDIOLOGY 02/08/19 14:01 02/10/19 14:00 02/09/19 13:15 Tamsulosin HCl (Flomax) 0.4 mg DAILY ORAL 02/08/19 09:00 03/10/19 08:59 02/09/19 09:17 Temazepam (Restoril) 15 mg HSPRN PRN ORAL Insomnia 02/07/19 12:00 02/14/19 11:59 Last 24 Hour Vital Signs Date Time Temp Pulse Resp B/P (MAP) Pulse Ox O2 Delivery O2 Flow Rate FiO2 02/09/19 12:00 97.7 61 21 146/63 (90) 95 02/09/19 09:00 Room Air 02/09/19 09:00 60 123/74 02/09/19 08:00 60 02/09/19 08:00 97.7 61 20 123/74 (90) 96 02/09/19 04:00 98.0 64 18 111/75 (87) 94 02/09/19 04:00 60 02/09/19 00:00 60 02/09/19 00:00 97.8 61 18 102/66 (78) 95 02/08/19 22:17 61 144/62 02/08/19 21:00 Room Air 02/08/19 20:00 98.0 61 18 144/62 (89) 98 02/08/19 19:21 60 02/08/19 16:00 98.4 60 18 159/61 (93) 95 02/08/19 16:00 60 02/08/19 12:00 97.2 55 20 140/64 (89) 97 02/08/19 12:00 60 02/08/19 09:32 60 147/62 02/08/19 09:00 Room Air 02/08/19 08:00 60 02/08/19 08:00 98.1 60 18 147/62 (90) 95 02/08/19 04:00 98.1 61 20 112/61 (78) 94 02/08/19 04:00 60 02/08/19 00:00 60 02/08/19 00:00 98.3 60 20 139/64 (89) 94 02/07/19 21:00 Room Air 02/07/19 21:00 61 116/65 02/07/19 20:00 97.9 61 20 116/65 (82) 95 02/07/19 20:00 60 02/07/19 16:27 97.5 60 18 134/63 (86) 97 02/07/19 16:00 60 Intake and Output 02/08/19 02/09/19 19:00 07:00 Intake Total 120 ml 55 ml Balance 120 ml 55 ml Intake Oral 120 ml IV Total 55 ml Labs Test 02/07/19 09:55 02/08/19 06:38 02/08/19 11:56 02/09/19 05:05 White Blood Count 6.1 K/UL (4.8-10.8) 6.2 K/UL (4.8-10.8) 5.9 K/UL (4.8-10.8) Red Blood Count 3.12 M/UL (4.70-6.10) 3.02 M/UL (4.70-6.10) 3.14 M/UL (4.70-6.10) Hemoglobin 10.4 G/DL (14.2-18.0) 10.1 G/DL (14.2-18.0) 10.6 G/DL (14.2-18.0) Hematocrit 31.0 % (42.0-52.0) 30.3 % (42.0-52.0) 31.2 % (42.0-52.0) Mean Corpuscular Volume 99 FL (80-99) 100 FL (80-99) 99 FL (80-99) Mean Corpuscular Hemoglobin 33.4 PG (27.0-31.0) 33.3 PG (27.0-31.0) 33.8 PG (27.0-31.0) Mean Corpuscular Hemoglobin Concent 33.6 G/DL (32.0-36.0) 33.2 G/DL (32.0-36.0) 34.1 G/DL (32.0-36.0) Red Cell Distribution Width 13.1 % (11.6-14.8) 13.7 % (11.6-14.8) 13.4 % (11.6-14.8) Platelet Count 156 K/UL (150-450) 156 K/UL (150-450) 128 K/UL (150-450) Mean Platelet Volume 6.1 FL (6.5-10.1) 7.0 FL (6.5-10.1) 6.3 FL (6.5-10.1) Neutrophils (%) (Auto) 74.2 % (45.0-75.0) 71.2 % (45.0-75.0) 66.6 % (45.0-75.0) Lymphocytes (%) (Auto) 13.6 % (20.0-45.0) 12.3 % (20.0-45.0) 15.7 % (20.0-45.0) Monocytes (%) (Auto) 8.6 % (1.0-10.0) 10.8 % (1.0-10.0) 11.3 % (1.0-10.0) Eosinophils (%) (Auto) 2.9 % (0.0-3.0) 4.9 % (0.0-3.0) 5.3 % (0.0-3.0) Basophils (%) (Auto) 0.7 % (0.0-2.0) 0.9 % (0.0-2.0) 1.0 % (0.0-2.0) Prothrombin Time 12.7 SEC (9.30-11.50) 12.6 SEC (9.30-11.50) Prothromb Time International Ratio 1.2 (0.9-1.1) 1.2 (0.9-1.1) Activated Partial Thromboplast Time 31 SEC (23-33) 32 SEC (23-33) Sodium Level 138 MMOL/L (136-145) 139 MMOL/L (136-145) 141 MMOL/L (136-145) Potassium Level 3.9 MMOL/L (3.5-5.1) 4.7 MMOL/L (3.5-5.1) 4.0 MMOL/L (3.5-5.1) Chloride Level 101 MMOL/L (98-107) 101 MMOL/L (98-107) 100 MMOL/L (98-107) Carbon Dioxide Level 27 MMOL/L (21-32) 23 MMOL/L (21-32) 28 MMOL/L (21-32) Anion Gap 10 mmol/L (5-15) 15 mmol/L (5-15) 14 mmol/L (5-15) Blood Urea Nitrogen 27 mg/dL (7-18) 33 mg/dL (7-18) 23 mg/dL (7-18) Creatinine 6.1 MG/DL (0.55-1.30) 7.2 MG/DL (0.55-1.30) 5.9 MG/DL (0.55-1.30) Estimat Glomerular Filtration Rate mL/min (>60) mL/min (>60) mL/min (>60) Glucose Level 208 MG/DL (74-106) 116 MG/DL (74-106) 117 MG/DL (74-106) Calcium Level 9.0 MG/DL (8.5-10.1) 8.9 MG/DL (8.5-10.1) 8.9 MG/DL (8.5-10.1) Total Bilirubin 1.1 MG/DL (0.2-1.0) 0.9 MG/DL (0.2-1.0) Direct Bilirubin 0.6 MG/DL (0.0-0.3) Aspartate Amino Transf (AST/SGOT) 18 U/L (15-37) 22 U/L (15-37) Alanine Aminotransferase (ALT/SGPT) 19 U/L (12-78) 18 U/L (12-78) Alkaline Phosphatase 185 U/L (46-116) 195 U/L (46-116) Total Creatine Kinase 44 U/L (26-308) Creatine Kinase MB < 0.5 NG/ML (0.0-3.6) Creatine Kinase MB Relative Index 1.1 Troponin I 0.003 ng/mL (0.000-0.056) 0.000 ng/mL (0.000-0.056) 0.009 ng/mL (0.000-0.056) 0.000 ng/mL (0.000-0.056) Pro-B-Type Natriuretic Peptide 38643 pg/mL (0-125) 31933 pg/mL (0-125) Total Protein 6.9 G/DL (6.4-8.2) 6.7 G/DL (6.4-8.2) Albumin 2.7 G/DL (3.4-5.0) 2.7 G/DL (3.4-5.0) Globulin 4.2 g/dL 4.0 g/dL Albumin/Globulin Ratio 0.6 (1.0-2.7) 0.7 (1.0-2.7) Lipase 59 U/L (73-393) C-Reactive Protein, Quantitative 5.4 mg/dL (0.00-0.90) 4.6 mg/dL (0.00-0.90) Triglycerides Level 81 MG/DL (30-150) Cholesterol Level 151 MG/DL (< 200) LDL Cholesterol 84 mg/dL (<100) HDL Cholesterol 33 MG/DL (40-60) Cholesterol/HDL Ratio 4.6 (3.3-4.4) Thyroid Stimulating Hormone (TSH) 0.332 uiU/mL (0.358-3.740) Hepatitis B Surface Antigen Negative (NEGATIVE) Hemoglobin A1c 5.5 % (4.3-6.0) Uric Acid 4.0 MG/DL (2.6-7.2) Phosphorus Level 2.9 MG/DL (2.5-4.9) Magnesium Level 2.2 MG/DL (1.8-2.4) Iron Level 47 ug/dL (50-175) Total Iron Binding Capacity 154 ug/dL (250-450) Percent Iron Saturation 31 % (15-50) Unsaturated Iron Binding 107 ug/dL (112-346) Ferritin 644 NG/ML (8-388) Gamma Glutamyl Transpeptidase 333 U/L (5-85) Vitamin B12 Level 756 PG/ML (193-986) Folate 50.1 NG/ML (8.6-58.9) Height (Feet): 5 Height (Inches): 4.00 Weight (Pounds): 150 Objective Vitals: reviewed General Appearance: NAD HEENT: normocephalic, atraumatic Neck: non-tender, normal alignment Respiratory/Chest: ++ crackles b/l Cardiovascular/Chest: normal peripheral pulses, normal rate Abdomen: normal bowel sounds, soft, nontender Extremities: normal range of motion ++ left avf shunt 1-2++ edema Reinier Kemp MD Feb 09, 2019 13:41
--- NOTE | 2019-02-09 14:16 | General Progress Note ---
Assessment/Plan Problem List: (1) ACS (acute coronary syndrome) ICD Codes: I24.9 - Acute ischemic heart disease, unspecified SNOMED: 545825326 (2) ESRF (end stage renal failure) ICD Codes: N18.6 - End stage renal disease SNOMED: 85422950 (3) Diabetes mellitus ICD Codes: E11.9 - Type 2 diabetes mellitus without complications SNOMED: 18772002 (4) History of seizure ICD Codes: Z87.898 - Personal history of other specified conditions SNOMED: 749393665 (5) BPH (benign prostatic hyperplasia) ICD Codes: N40.0 - Benign prostatic hyperplasia without lower urinary tract symptoms SNOMED: 868504335 Status: stable, progressing Assessment/Plan: pt diet dialysis pain control cbc bmp am aru eval Subjective Constitutional: Reports: weakness Allergies: Coded Allergies: LOSARTAN (Verified Allergy, Unknown, 11/26/18) METOCLOPRAMIDE (Verified Allergy, Unknown, 11/26/18) [id number] REDUCTASE INHIBITOR (Verified Allergy, Unknown, 11/26/18) All Systems: reviewed and negative except above Subjective calm awaiting stress test Objective Last 24 Hour Vital Signs Date Time Temp Pulse Resp B/P (MAP) Pulse Ox O2 Delivery O2 Flow Rate FiO2 02/09/19 12:00 97.7 61 21 146/63 (90) 95 02/09/19 12:00 60 02/09/19 09:00 Room Air 02/09/19 09:00 60 123/74 02/09/19 08:00 60 02/09/19 08:00 97.7 61 20 123/74 (90) 96 02/09/19 04:00 98.0 64 18 111/75 (87) 94 02/09/19 04:00 60 02/09/19 00:00 60 02/09/19 00:00 97.8 61 18 102/66 (78) 95 02/08/19 22:17 61 144/62 02/08/19 21:00 Room Air 02/08/19 20:00 98.0 61 18 144/62 (89) 98 02/08/19 19:21 60 02/08/19 16:00 98.4 60 18 159/61 (93) 95 02/08/19 16:00 60 Intake and Output 02/08/19 02/09/19 19:00 07:00 Intake Total 120 ml 55 ml Balance 120 ml 55 ml Intake Oral 120 ml IV Total 55 ml Laboratory Tests 02/09/19 05:05: White Blood Count 5.9, Red Blood Count 3.14L, Hemoglobin 10.6L, Hematocrit 31.2L , Mean Corpuscular Volume 99, Mean Corpuscular Hemoglobin 33.8H, Mean Corpuscular Hemoglobin Concent 34.1, Red Cell Distribution Width 13.4, Platelet Count 128L, Mean Platelet Volume 6.3L, Neutrophils (%) (Auto) 66.6, Lymphocytes (%) (Auto) 15.7L, Monocytes (%) (Auto) 11.3H, Eosinophils (%) (Auto) 5.3H, Basophils (%) (Auto) 1.0, Sodium Level 141, Potassium Level 4.0, Chloride Level 100, Carbon Dioxide Level 28, Anion Gap 14, Blood Urea Nitrogen 23H, Creatinine 5.9H, Estimat Glomerular Filtration Rate , Glucose Level 117H, Hemoglobin A1c 5.5, Uric Acid 4.0, Calcium Level 8.9, Phosphorus Level 2.9, Magnesium Level 2.2 , Iron Level 47L, Total Iron Binding Capacity 154L, Percent Iron Saturation 31, Unsaturated Iron Binding 107L, Ferritin 644H, Total Bilirubin 0.9, Gamma Glutamyl Transpeptidase 333H, Aspartate Amino Transf (AST/SGOT) 22, Alanine Aminotransferase (ALT/SGPT) 18, Alkaline Phosphatase 195H, Troponin I 0.000, C- Reactive Protein, Quantitative 4.6H, Pro-B-Type Natriuretic Peptide 99936W, Total Protein 6.7, Albumin 2.7L, Globulin 4.0, Albumin/Globulin Ratio 0.7L, Vitamin B12 Level 756, Folate 50.1, HIV (1&2) Antibody Rapid Negative Height (Feet): 5 Height (Inches): 4.00 Weight (Pounds): 150 General Appearance: lethargic EENT: normal ENT inspection Neck: normal alignment Cardiovascular: normal peripheral pulses, normal rate, regular rhythm Respiratory/Chest: chest wall non-tender, lungs clear, normal breath sounds Abdomen: normal bowel sounds, non tender, soft Extremities: normal inspection Edema: no edema noted Arm (L), no edema noted Arm (R), no edema noted Leg (L), no edema noted Leg (R), no edema noted Pedal (L), no edema noted Pedal (R), no edema noted Generalized Neurologic: motor weakness Skin: normal pigmentation, warm/dry Jethro Novoa DO Feb 09, 2019 14:16
--- NOTE | 2019-02-09 14:41 | NUR ---
ST NOTE: REFERRED FOR A SWALLOW EVALUATION BY DR MANUEL, SEE FULL REPORT TO FOLLOW. 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 POLST STATES OK TO HAVE ASSISTED ARTIFICIAL NUTRITION IF NEEDS. DIET AT SNF ? CHART NOT AVAILABLE CURRENTLY ON A [facility] REGULAR TEXTURE DIET AND THIN LIQUIDS. PER RN (MIN) PT WAS CHOKING ON HIS REGULAR TEXTURE (MASTICATED SOLID) FOOD. PER RD PT IS OVERWEIGHT. ALERT AND ABLE TO EXPRESS NEEDS IN [place]. ON ROOM AIR INITIAL IMPRESSIONS: S/S OF AT LEAST A MILD ORAL PREP AND OROPHARYNGEAL DYSPHAGIA WITH INCREASED TRANSIT TIMES. GIVEN THIN LIQUIDS VIA STRAW SEQUENTIAL SIPS (3 0Z ACUSHNET SWALLOW WATER PROTOCOL), AFTER A FEW SIPS HE SPIT UP SOME WATER. LATER WHEN HE CONTINUED TO DRINK, HE COUGHED. NO COUGH WITH SINGLE SIPS BUT HAS SILENT ASPIRATION RISK (AND HAS PNA NOW) AND PERIODS OF BEING LESS ALERT. GIVEN TSP PUREED, CHEW IT FOR 5 SECONDS UNNECESSARILY, SWALLOWED WITH FAIR HYOLARYNGEAL EXCURSION, NO ORAL RESIDUE NOR OVERT ASPIRATION. WILL HOLD ON MASTICATED SOLIDS FOR NOW (OR UNTIL MBSS) SINCE PT CHOKED ON SOLIDS WITH RN AND HE HAS NO LOWER MOLARS BUT HAS UPPER FULL DENTURES (TAKE OUT WHEN SLEEPING AND CLEAN) POOR INTAKE (0 MOST OF THE TIME ONE TIME 25%) RECOMMENDATIONS: COMPLETED MOD BARIUM SWALLOW STUDY IP OR OP IF DC TO FURTHER ASSESS SWALLOW, DETERMINE SILENT ASP RISK AND ATTEMPT TRIAL TX IF PO CONTINUES FOR QUALITY OF LIFE, CONSIDER DOWNGRADING TO PUREED AND NECTAR THICK LIQUIDS, SEND HIGH IDRIS SUP AND USE STRICT ASPIRATION AND REFLUX PRECAUTIONS. SKILLED DYSPHAGIA MANAGEMENT AND TX AND COG-COM EVAL/TX EDUCATED/TRAINED RN IN POSTED PRECAUTIONS. 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 POLST STATES OK TO HAVE INSURANCE PLAN SPECIALIST ARTIFICIAL NUTRITION IF NEEDS. DIET AT SNF ON A SHARAN, CCHO, RENAL REGULAR TEXTURE DIET AND THIN LIQUIDS.
--- NOTE | 2019-02-09 14:46 | NUR ---
NM Myocardial Perfusion scan complete.
--- NOTE | 2019-02-09 14:51 | Diagnostic Imaging Report ---
Indications: 73-year-old male with chest pain Technique: Single day single isotope protocol utilized. Initially, resting images obtained using IV administration 10.9 millicuries 99M technetium Myoview. Subsequently, patient underwent lexiscan stress testing. See cardiology report for details. During Lexiscan infusion, IV administration 30 mCi 99 M technetium Myoview. SPECT and planar images obtained. SPECT images gated to 8 phases of the cardiac cycle were also obtained, and reformatted into cine images for evaluation of ejection fraction. Comparison: Findings: Per cardiology report, patient experienced no symptoms. Per cardiology report, resting EKG demonstrates nonspecific T-wave changes. This reportedly increased slightly in the lateral leads during infusion. Imaging demonstrates apparent somewhat decreased perfusion in the inferior wall which is unchanged on the post stress images. No reversible perfusion defects are demonstrated. Normal cardiac chamber size. Calculated post stress ejection fraction 68%. On the gated images, there is suggestion of slight septal hypokinesis. Impression: Nonischemic clinical response to pharmacologic stress, per cardiology report Nonischemic electrocardiographic response to pharmacologic stress, per cardiology report Apparent inferior wall perfusion defect is probably a soft tissue attenuation artifact. No definite ischemia or infarct, at level of stress achieved Apparent medial wall hypokinesis, probably artifactual given normal findings on recent echocardiogram Calculated post stress ejection fraction 68%
[2019-02-09 16:00] VITALS: BP 140/69
--- NOTE | 2019-02-09 16:00 | NUR ---
NURSE NOTES: [facility] with three person's maximum assist for having bowel movement. He has weakness on his feet and could not stand up with maximum assist.
--- NOTE | 2019-02-09 16:17 | NUR ---
NURSE NOTES: [facility] confirmed
--- NOTE | 2019-02-09 19:25 | NUR ---
HAND-OFF: Report given to Matt VARGAS. Pt remains stable.
--- NOTE | 2019-02-09 19:29 | NUR ---
NURSE NOTES: Pt received from Min, RN alert and oriented x3 but primarily Andorran-speaking resting comfortably in bed. IV site asymptomatic and patent on R ac 20g, saline lock. AV shunt on L fa bruit auscultated and thrill palpated. Bed alarm on, Bed in lowest position, call light and belongings within reach.
[2019-02-09 20:00] VITALS: BP 100/56
[2019-02-09] MEDS: PARoxetine 20mg tab ORAL SCH (21:28)
[2019-02-09] MEDS: cefTRIAXone 1 GM in D5W 55 ML IVPB SCH (21:28)
[2019-02-10] VITALS: BP 115/56
--- NOTE | 2019-02-10 02:24 | NUR ---
NURSE NOTES: Pt calm and cooperative in bed, currently resting with no acute s/s of distress noted. IV site asymptomatic and patent, saline lock. Bed alarm on, bed in lowest position. Call light and belongings within reach. monitoring tech on - A paced 60.
[2019-02-10 04:00] VITALS: BP 145/66
[2019-02-10] MEDS: NovoLOG Insulin Flexpen SUBQ SCH ×4 (05:52→22:17)
[2019-02-10] MEDS: Heparin 5000 units/ml inj SUBQ SCH ×3 (05:52→22:18)
[2019-02-10 07:15] LABS: BASOPHILS % (AUTO) 0.9 % (0.0-2.0); EOSINOPHILS % (AUTO) 4.8 % (0.0-3.0); LYMPHOCYTES % (AUTO) 13.7 % (20.0-45.0); MEAN CORPUSCULAR VOLUME 100 FL (80-99); MONOCYTES % (AUTO) 11.9 % (1.0-10.0); NEUTROPHILS % (AUTO) 68.7 % (45.0-75.0); PLATELET COUNT 149 K/UL (150-450); RED CELL DISTRIBUTION WIDTH 14.1 % (11.6-14.8); WHITE BLOOD COUNT 7.4 K/UL (4.8-10.8)
--- NOTE | 2019-02-10 07:30 | NUR ---
HAND-OFF: Report given to ALICIA Kilpatrick. Plan of care endorsed.
--- NOTE | 2019-02-10 07:31 | NUR ---
NURSE NOTES: Received report from ALICIA Gutierrez. The patient is having a breakfast on the bed without acute distress or shortness of breath. Informed the patient that the patient is scheduled for dialysis today. The patient's bed in the lowest position, call light in reach, and fall, aspiration, and seizure precaution reinforced. IV on right AC 20G intact and patent. The patient has order to be transferred to medical/surgical unit and awaiting for the bed. Will continue plan of care.
[2019-02-10 07:37] LABS: ANION GAP 15 mmol/L (5-15); BLOOD UREA NITROGEN 20 mg/dL (7-18); CARBON DIOXIDE 28 MMOL/L (21-32); CHLORIDE 98 MMOL/L (98-107); CREATININE 7.5 MG/DL (0.55-1.30); POTASSIUM 3.8 MMOL/L (3.5-5.1); SODIUM 140 MMOL/L (136-145)
[2019-02-10 08:00] VITALS: BP 140/56
--- NOTE | 2019-02-10 08:53 | NUR ---
RD ASSESSMENT & RECOMMENDATIONS SEE CARE ACTIVITY FOR COMPLETE ASSESSMENT DAILY ESTIMATED NEEDS: Needs based on ESRD on HD 61kg abw 30-35 kcals/kg 9584-1824 total kcals 1.2-1.8 g protein/kg 73-110 g total protein Fluid per MD, on HD NUTRITION DIAGNOSIS: Increased kcal and pro needs r/t renal dysfunction as evidenced by pt w/ ESRD on HD CURRENT DIET:Renal/ CCHO MED puree w/ NTL PO DIET RECOMMENDATIONS: RENAL DIET (texture per ACCOUNT COLLECTOR) ADDITIONAL RECOMMENDATIONS: 1) Obtain a calibrated bed scale wt Adm wt 157#-> now 146# 2) Add snacks in b/w meals 3) Rec 1:1 feeds as able with all meals (poor po intake) Consider non oral feeds to meet est needs (pt is Full Code) 4) Continue to add Nepro TID w/ meals
[2019-02-10] MEDS: Carvedilol 25mg Tab ORAL SCH ×2 (08:57→22:16)
[2019-02-10] MEDS: Aspirin Baby 81mg ORAL SCH (08:57)
[2019-02-10] MEDS: Amiodarone 200mg tab ORAL SCH (08:57)
[2019-02-10] MEDS: Tamsulosin 0.4mg cap ORAL SCH (08:58)
--- NOTE | 2019-02-10 09:30 | NUR ---
NURSE NOTES: The patient got safely transferred to [facility] with the nurse's assistance. Endorsed the plan of care to ALICIA Mendieta who is the receiving nurse for [facility]. The patient is stable without acute distress or shortness of breath. The patient is stable in physical symptoms and vital signs. Informed ALICIA Mendieta that the patient is scheduled for HD today and called and confirmed the schedule with Manjit @ [facility]. The patient's IV on R AC 20G intact and patent. Skin is intact. The patient's bed in the lowest position, call light in reach, and fall, aspiration, and seizure precaution reinforced. Endorsed plan of care to ALICIA Mendieta who will take care of the patient at [facility].
--- NOTE | 2019-02-10 09:39 | Nephrology Progress Note ---
Assessment/Plan Problem List: (1) ESRF (end stage renal failure) (2) ACS (acute coronary syndrome) (3) Pneumonia (4) BPH (benign prostatic hyperplasia) (5) AICD (automatic cardioverter/defibrillator) present Assessment Coded Allergies: LOSARTAN (Verified Allergy, Unknown, 11/26/18) METOCLOPRAMIDE (Verified Allergy, Unknown, 11/26/18) [id number] REDUCTASE INHIBITOR (Verified Allergy, Unknown, 11/26/18) Hx Cardiac Problems: Yes - CHF, hyperlipidemia Hx Pacemaker: Yes Hx Diabetes: Yes Hx Dialysis: Yes - MWF ACS ESRD HTN BPH DM Plan HD 02/08 repeat 02/10 antibiotic pulmonary toilet optimize cardiac status stress test due 02/09 ! Subjective ROS Limited/Unobtainable: No Constitutional: Reports: malaise Objective Objective Last 24 Hour Vital Signs Date Time Temp Pulse Resp B/P (MAP) Pulse Ox O2 Delivery O2 Flow Rate FiO2 02/10/19 08:57 60 140/56 02/10/19 08:00 97.7 60 20 140/56 (84) 96 02/10/19 04:00 98.4 61 18 145/66 (92) 97 02/10/19 04:00 60 02/10/19 00:00 97.7 60 16 115/56 (75) 98 02/10/19 00:00 60 02/09/19 21:00 Room Air 02/09/19 21:00 60 100/56 02/09/19 20:00 60 02/09/19 20:00 97.7 60 18 100/56 (71) 98 02/09/19 16:00 98.1 60 20 140/69 (92) 95 02/09/19 16:00 60 02/09/19 12:00 97.7 61 21 146/63 (90) 95 02/09/19 12:00 60 Intake and Output 02/09/19 02/10/19 19:00 07:00 Intake Total 440 ml Balance 440 ml Intake Oral 440 ml # Voids 1 # Bowel Movements 1 Laboratory Tests 02/10/19 05:28: White Blood Count 7.4, Red Blood Count 3.30L, Hemoglobin 11.0L, Hematocrit 33.0L , Mean Corpuscular Volume 100H, Mean Corpuscular Hemoglobin 33.3H, Mean Corpuscular Hemoglobin Concent 33.3, Red Cell Distribution Width 14.1, Platelet Count 149L, Mean Platelet Volume 7.3, Neutrophils (%) (Auto) 68.7, Lymphocytes ( %) (Auto) 13.7L, Monocytes (%) (Auto) 11.9H, Eosinophils (%) (Auto) 4.8H, Basophils (%) (Auto) 0.9, Sodium Level 140, Potassium Level 3.8, Chloride Level 98, Carbon Dioxide Level 28, Anion Gap 15, Blood Urea Nitrogen 20H, Creatinine 7.5H, Estimat Glomerular Filtration Rate , Glucose Level 85, Calcium Level 9.0 Height (Feet): 5 Height (Inches): 4.00 Weight (Pounds): 146 General Appearance: no apparent distress Objective no change Manolo Grimes MD Feb 10, 2019 09:39
--- NOTE | 2019-02-10 10:04 | Hematology/Onc Progress Note ---
Assessment/Plan Assessment/Plan Assessment/Plan # Thrombocytopenia - potential causes multifactorial, evaluate liver and viral etiologies to begin, also could be related to underlying medications patient has received. --> Hep panel and HIV NR --> US abd to evaluate for cirrhosis and hsm consider to order --> Peripheral smear ordered to evaluate for blasts /schistocytes --> abx and other meds have been reviewed --> ok for ppx if plt >50k w/ either heparin or lovenox --> Transfuse if Plt < 20k and fever, or if Plt < 10k without fever --> plt trend 156-->128k-->149k # Anemia of chronic disease due to underlying chronic medical issues, multifactorial (likely in this case due to kidney disease) --> Anemia workup has been reviewed and ferritin 644 --> No evidence of hemolysis is noted, peripheral smear has been reviewed --> Hgb goal >7. Transfuse prn. --> Epogen or iron at this time is not particularly indicated --> if lower hgb < 11 consider epo --> Medications have been reviewed --> low threshold for gi evaluation in case has occult + --> hgb trend 10.1-->10.6-->11 # Congestive heart failure and volume overload. BNP of more than 21,000. The patient is on hemodialysis and Coreg.EF 55% --> per renal HD --> stress test with cards # Status post dual-chamber [employer] right-sided defibrillator implantation, last month ICD was checked, that started 5 years with no arrhythmia. --> hold off anticoag # History of paroxysmal atrial fibrillation, atrially paced rhythm, on amiodarone 200 mg daily. --> asa/plavix # End-stage renal disease, on hemodialysis. --> per renal, hd 3x week (02/10) # History of seizures, on Keppra. # Diabetes on insulin. # Dvt ppx scds The timing of this note does not necessarily reflect the time of the patient was seen. Greatly appreciate consultation. Subjective Constitutional: Denies: no symptoms, chills, fever, malaise, weakness, other HEENT: Denies: no symptoms, eye pain, blurred vision, tearing, double vision, ear pain, ear discharge, nose pain, nose congestion, throat pain, throat swelling, mouth pain, mouth swelling, other Cardiovascular: Denies: no symptoms, chest pain, edema, irregular heart rate, lightheadedness, palpitations, syncope, other Respiratory: Denies: no symptoms, cough, shortness of breath, SOB with excertion, SOB at rest, sputum, wheezing, other Gastrointestinal/Abdominal: Denies: no symptoms, abdomen distended, abdominal pain, black stools, tarry stools, blood in stool, constipated, diarrhea, difficulty swallowing, nausea, poor appetite, poor fluid intake, rectal bleeding , vomiting, other Genitourinary: Denies: no symptoms, burning, discharge, frequency, flank pain, hematuria, incontinence, pain, urgency, other Neurologic/Psychiatric: Denies: no symptoms, anxiety, depressed, emotional problems, headache, numbness, paresthesia, pre-existing deficit, seizure, tingling, tremors, weakness, other Endocrine: Denies: no symptoms, excessive sweating, flushing, intolerance to cold, intolerance to heat, increased hunger, increased thirst, increased urine, unexplained weight gain, unexplained weight loss, other Allergies: Coded Allergies: LOSARTAN (Verified Allergy, Unknown, 11/26/18) METOCLOPRAMIDE (Verified Allergy, Unknown, 11/26/18) [id number] REDUCTASE INHIBITOR (Verified Allergy, Unknown, 11/26/18) Subjective 02/09: no fevers or chills, no bleeding, labs noted 02/10: no events, no f/c, no bleeding, hd for today Objective Objective Current Medications Medications (Trade) Dose Ordered Sig/Fernando Route PRN Reason Start Time Stop Time Status Last Admin Dose Admin Acetaminophen (Tylenol) 650 mg Q4H PRN ORAL FEVER 02/07/19 12:00 03/09/19 11:59 Albuterol/ Ipratropium (Albuterol/ Ipratropium) 3 ml Q4H PRN HHN Shortness of Breath 02/07/19 12:00 02/12/19 11:59 Amiodarone HCl (Cordarone) 200 mg DAILY ORAL 02/08/19 09:00 03/10/19 08:59 02/10/19 08:57 Aspirin (ASA) 81 mg DAILY ORAL 02/08/19 09:00 03/10/19 08:59 02/09/19 09:17 Carvedilol (Coreg) 25 mg EVERY 12 HOURS ORAL 02/07/19 21:00 03/09/19 20:59 02/08/19 22:17 Ceftriaxone Sodium 1 gm/ Dextrose 55 ml @ 110 mls/hr Q24H IVPB 02/08/19 21:00 02/15/19 20:59 02/09/19 21:28 Clopidogrel Bisulfate (Plavix) 75 mg DAILY ORAL 02/08/19 09:00 03/10/19 08:59 02/09/19 09:18 Dextrose (Dextrose 50%) 25 ml Q30M PRN IV Hypoglycemia 02/07/19 12:00 03/09/19 11:59 Dextrose (Dextrose 50%) 50 ml Q30M PRN IV Hypoglycemia 02/07/19 12:00 03/09/19 11:59 Diltiazem HCl (Cardizem) 10 mg Q1H PRN IV heart rate more than 120, 02/07/19 12:00 03/09/19 11:59 Enalaprilat (Vasotec) 2.5 mg Q6H PRN IV sbp more than 160 02/07/19 12:00 03/09/19 11:59 Gabapentin (Neurontin) 100 mg BID ORAL 02/07/19 18:00 03/09/19 17:59 02/10/19 08:58 Heparin Sodium (Porcine) (Heparin 5000 units/ml) 5,000 units EVERY 8 HOURS SUBQ 02/07/19 22:00 03/09/19 21:59 02/09/19 05:41 Insulin Aspart (NovoLOG) BEFORE MEALS AND HS SUBQ 02/07/19 16:30 03/09/19 16:29 02/09/19 21:29 Levetiracetam (Keppra) 500 mg EVERY 12 HOURS ORAL 02/07/19 21:00 03/09/19 20:59 02/10/19 08:58 Morphine Sulfate (Morphine Sulfate) 2 mg Q4H PRN IVP severe Pain (Pain Scale 7-10) 02/07/19 12:00 02/14/19 11:59 Nitroglycerin (Ntg) 0.4 mg Q5M PRN SL Prn Chest Pain 02/07/19 12:00 03/09/19 11:59 Ondansetron HCl (Zofran) 4 mg Q6H PRN IVP Nausea & Vomiting 02/07/19 12:00 03/09/19 11:59 Pantoprazole (Protonix) 40 mg DAILY ORAL 02/08/19 09:00 03/10/19 08:59 02/10/19 08:58 Paroxetine HCl (Paxil) 20 mg BEDTIME ORAL 02/07/19 21:00 03/09/19 20:59 02/09/19 21:28 Polyethylene Glycol (Miralax) 17 gm DAILYPRN PRN ORAL Constipation 02/07/19 12:00 03/09/19 11:59 Regadenoson (Lexiscan) 0.4 mg ONCE PRN IV CARDIOLOGY 02/08/19 14:01 02/10/19 14:00 02/09/19 13:15 Tamsulosin HCl (Flomax) 0.4 mg DAILY ORAL 02/08/19 09:00 03/10/19 08:59 02/10/19 08:58 Temazepam (Restoril) 15 mg HSPRN PRN ORAL Insomnia 02/07/19 12:00 02/14/19 11:59 Last 24 Hour Vital Signs Date Time Temp Pulse Resp B/P (MAP) Pulse Ox O2 Delivery O2 Flow Rate FiO2 02/10/19 08:57 60 140/56 02/10/19 08:00 97.7 60 20 140/56 (84) 96 02/10/19 04:00 98.4 61 18 145/66 (92) 97 02/10/19 04:00 60 02/10/19 00:00 97.7 60 16 115/56 (75) 98 02/10/19 00:00 60 02/09/19 21:00 Room Air 02/09/19 21:00 60 100/56 02/09/19 20:00 60 02/09/19 20:00 97.7 60 18 100/56 (71) 98 02/09/19 16:00 98.1 60 20 140/69 (92) 95 02/09/19 16:00 60 02/09/19 12:00 97.7 61 21 146/63 (90) 95 02/09/19 12:00 60 02/09/19 09:00 Room Air 02/09/19 09:00 60 123/74 02/09/19 08:00 60 02/09/19 08:00 97.7 61 20 123/74 (90) 96 02/09/19 04:00 98.0 64 18 111/75 (87) 94 02/09/19 04:00 60 02/09/19 00:00 60 02/09/19 00:00 97.8 61 18 102/66 (78) 95 02/08/19 22:17 61 144/62 02/08/19 21:00 Room Air 02/08/19 20:00 98.0 61 18 144/62 (89) 98 02/08/19 19:21 60 02/08/19 16:00 98.4 60 18 159/61 (93) 95 02/08/19 16:00 60 02/08/19 12:00 97.2 55 20 140/64 (89) 97 02/08/19 12:00 60 Intake and Output 02/09/19 02/10/19 19:00 07:00 Intake Total 440 ml Balance 440 ml Intake Oral 440 ml # Voids 1 # Bowel Movements 1 Labs Test 02/08/19 06:38 02/08/19 11:56 02/09/19 05:05 02/10/19 05:28 White Blood Count 6.2 K/UL (4.8-10.8) 5.9 K/UL (4.8-10.8) 7.4 K/UL (4.8-10.8) Red Blood Count 3.02 M/UL (4.70-6.10) 3.14 M/UL (4.70-6.10) 3.30 M/UL (4.70-6.10) Hemoglobin 10.1 G/DL (14.2-18.0) 10.6 G/DL (14.2-18.0) 11.0 G/DL (14.2-18.0) Hematocrit 30.3 % (42.0-52.0) 31.2 % (42.0-52.0) 33.0 % (42.0-52.0) Mean Corpuscular Volume 100 FL (80-99) 99 FL (80-99) 100 FL (80-99) Mean Corpuscular Hemoglobin 33.3 PG (27.0-31.0) 33.8 PG (27.0-31.0) 33.3 PG (27.0-31.0) Mean Corpuscular Hemoglobin Concent 33.2 G/DL (32.0-36.0) 34.1 G/DL (32.0-36.0) 33.3 G/DL (32.0-36.0) Red Cell Distribution Width 13.7 % (11.6-14.8) 13.4 % (11.6-14.8) 14.1 % (11.6-14.8) Platelet Count 156 K/UL (150-450) 128 K/UL (150-450) 149 K/UL (150-450) Mean Platelet Volume 7.0 FL (6.5-10.1) 6.3 FL (6.5-10.1) 7.3 FL (6.5-10.1) Neutrophils (%) (Auto) 71.2 % (45.0-75.0) 66.6 % (45.0-75.0) 68.7 % (45.0-75.0) Lymphocytes (%) (Auto) 12.3 % (20.0-45.0) 15.7 % (20.0-45.0) 13.7 % (20.0-45.0) Monocytes (%) (Auto) 10.8 % (1.0-10.0) 11.3 % (1.0-10.0) 11.9 % (1.0-10.0) Eosinophils (%) (Auto) 4.9 % (0.0-3.0) 5.3 % (0.0-3.0) 4.8 % (0.0-3.0) Basophils (%) (Auto) 0.9 % (0.0-2.0) 1.0 % (0.0-2.0) 0.9 % (0.0-2.0) Prothrombin Time 12.6 SEC (9.30-11.50) Prothromb Time International Ratio 1.2 (0.9-1.1) Activated Partial Thromboplast Time 32 SEC (23-33) Sodium Level 139 MMOL/L (136-145) 141 MMOL/L (136-145) 140 MMOL/L (136-145) Potassium Level 4.7 MMOL/L (3.5-5.1) 4.0 MMOL/L (3.5-5.1) 3.8 MMOL/L (3.5-5.1) Chloride Level 101 MMOL/L (98-107) 100 MMOL/L (98-107) 98 MMOL/L (98-107) Carbon Dioxide Level 23 MMOL/L (21-32) 28 MMOL/L (21-32) 28 MMOL/L (21-32) Anion Gap 15 mmol/L (5-15) 14 mmol/L (5-15) 15 mmol/L (5-15) Blood Urea Nitrogen 33 mg/dL (7-18) 23 mg/dL (7-18) 20 mg/dL (7-18) Creatinine 7.2 MG/DL (0.55-1.30) 5.9 MG/DL (0.55-1.30) 7.5 MG/DL (0.55-1.30) Estimat Glomerular Filtration Rate mL/min (>60) mL/min (>60) mL/min (>60) Glucose Level 116 MG/DL (74-106) 117 MG/DL (74-106) 85 MG/DL (74-106) Calcium Level 8.9 MG/DL (8.5-10.1) 8.9 MG/DL (8.5-10.1) 9.0 MG/DL (8.5-10.1) Troponin I 0.000 ng/mL (0.000-0.056) 0.009 ng/mL (0.000-0.056) 0.000 ng/mL (0.000-0.056) C-Reactive Protein, Quantitative 5.4 mg/dL (0.00-0.90) 4.6 mg/dL (0.00-0.90) Triglycerides Level 81 MG/DL (30-150) Cholesterol Level 151 MG/DL (< 200) LDL Cholesterol 84 mg/dL (<100) HDL Cholesterol 33 MG/DL (40-60) Cholesterol/HDL Ratio 4.6 (3.3-4.4) Thyroid Stimulating Hormone (TSH) 0.332 uiU/mL (0.358-3.740) Hepatitis B Surface Antigen Negative (NEGATIVE) Hemoglobin A1c 5.5 % (4.3-6.0) Uric Acid 4.0 MG/DL (2.6-7.2) Phosphorus Level 2.9 MG/DL (2.5-4.9) Magnesium Level 2.2 MG/DL (1.8-2.4) Iron Level 47 ug/dL (50-175) Total Iron Binding Capacity 154 ug/dL (250-450) Percent Iron Saturation 31 % (15-50) Unsaturated Iron Binding 107 ug/dL (112-346) Ferritin 644 NG/ML (8-388) Total Bilirubin 0.9 MG/DL (0.2-1.0) Gamma Glutamyl Transpeptidase 333 U/L (5-85) Aspartate Amino Transf (AST/SGOT) 22 U/L (15-37) Alanine Aminotransferase (ALT/SGPT) 18 U/L (12-78) Alkaline Phosphatase 195 U/L (46-116) Pro-B-Type Natriuretic Peptide 29729 pg/mL (0-125) Total Protein 6.7 G/DL (6.4-8.2) Albumin 2.7 G/DL (3.4-5.0) Globulin 4.0 g/dL Albumin/Globulin Ratio 0.7 (1.0-2.7) Vitamin B12 Level 756 PG/ML (193-986) Folate 50.1 NG/ML (8.6-58.9) HIV (1&2) Antibody Rapid Negative (NEGATIVE) Height (Feet): 5 Height (Inches): 4.00 Weight (Pounds): 148 Objective Vitals: reviewed General Appearance: NAD HEENT: normocephalic, atraumatic Neck: non-tender, normal alignment Respiratory/Chest: ++ crackles b/l Cardiovascular/Chest: normal peripheral pulses, normal rate Abdomen: normal bowel sounds, soft, nontender Extremities: normal range of motion ++ left avf shunt 1-2++ edema Reinier Kemp MD Feb 10, 2019 10:04
[2019-02-10] MEDS ORDERED: dilTIAZem HCl 25mg/5ml Inj IV PRN (11:00)
--- NOTE | 2019-02-10 11:55 | Infectious Diseases Prog Note ---
Assessment/Plan Assessment/Plan Assessment: Chest pain Pneumonia -CXR: Accentuation of bronchovascular markings. Mild consolidation in the left lung base. -troponins neg x2 Afebrile No leukocytosis HTN HLD ESRD on HD TTS s/p PPM/AICD seizure disorder Anemia of chronic kidney disease BPH neuropathy CAD Dm2 [place] resident Plan: -Continue Ceftriaxone #3 (abx d #4/5-7 for PNA) -02/08 SP Cefepime #2 -02/07 SP IV Vancomycin x1 -f/u cx -Monitor CBC/CMP, temperatures Thank you for this consultation. Will continue to follow along with you. Discussed with RN Subjective Allergies: Coded Allergies: LOSARTAN (Verified Allergy, Unknown, 11/26/18) METOCLOPRAMIDE (Verified Allergy, Unknown, 11/26/18) [id number] REDUCTASE INHIBITOR (Verified Allergy, Unknown, 11/26/18) Subjective afebrile no leukocytosis Objective Vital Signs Last 24 Hour Vital Signs Date Time Temp Pulse Resp B/P (MAP) Pulse Ox O2 Delivery O2 Flow Rate FiO2 02/10/19 09:00 Room Air 02/10/19 08:57 60 140/56 02/10/19 08:00 60 02/10/19 08:00 97.7 60 20 140/56 (84) 96 02/10/19 04:00 98.4 61 18 145/66 (92) 97 02/10/19 04:00 60 02/10/19 00:00 97.7 60 16 115/56 (75) 98 02/10/19 00:00 60 02/09/19 21:00 Room Air 02/09/19 21:00 60 100/56 02/09/19 20:00 60 02/09/19 20:00 97.7 60 18 100/56 (71) 98 02/09/19 16:00 98.1 60 20 140/69 (92) 95 02/09/19 16:00 60 02/09/19 12:00 97.7 61 21 146/63 (90) 95 02/09/19 12:00 60 Height (Feet): 5 Height (Inches): 4.00 Weight (Pounds): 148 Objective GENERAL: Calm in bed, oriented x2, in no acute distress. CARDIOVASCULAR: No murmur. LUNGS: Distant and clear. ABDOMEN: Bowel sounds positive. Nontender. Nondistended. EXTREMITIES: No cyanosis, clubbing, or edema. NEUROLOGIC: The patient moves all extremities, slightly weak. Laboratory Tests Test 02/10/19 05:28 White Blood Count 7.4 K/UL (4.8-10.8) Red Blood Count 3.30 M/UL (4.70-6.10) L Hemoglobin 11.0 G/DL (14.2-18.0) L Hematocrit 33.0 % (42.0-52.0) L Mean Corpuscular Volume 100 FL (80-99) H Mean Corpuscular Hemoglobin 33.3 PG (27.0-31.0) H Mean Corpuscular Hemoglobin Concent 33.3 G/DL (32.0-36.0) Red Cell Distribution Width 14.1 % (11.6-14.8) Platelet Count 149 K/UL (150-450) L Mean Platelet Volume 7.3 FL (6.5-10.1) Neutrophils (%) (Auto) 68.7 % (45.0-75.0) Lymphocytes (%) (Auto) 13.7 % (20.0-45.0) L Monocytes (%) (Auto) 11.9 % (1.0-10.0) H Eosinophils (%) (Auto) 4.8 % (0.0-3.0) H Basophils (%) (Auto) 0.9 % (0.0-2.0) Sodium Level 140 MMOL/L (136-145) Potassium Level 3.8 MMOL/L (3.5-5.1) Chloride Level 98 MMOL/L (98-107) Carbon Dioxide Level 28 MMOL/L (21-32) Anion Gap 15 mmol/L (5-15) Blood Urea Nitrogen 20 mg/dL (7-18) H Creatinine 7.5 MG/DL (0.55-1.30) H Estimat Glomerular Filtration Rate mL/min (>60) Glucose Level 85 MG/DL (74-106) Calcium Level 9.0 MG/DL (8.5-10.1) Current Medications Medications (Trade) Dose Ordered Sig/Fernando Route PRN Reason Start Time Stop Time Status Last Admin Dose Admin Acetaminophen (Tylenol) 650 mg Q4H PRN ORAL FEVER 02/10/19 10:00 03/09/19 09:59 Albuterol/ Ipratropium (Albuterol/ Ipratropium) 3 ml Q4H PRN HHN Shortness of Breath 02/10/19 12:00 02/12/19 11:59 Amiodarone HCl (Cordarone) 200 mg DAILY ORAL 02/11/19 09:00 03/10/19 08:59 Aspirin (ASA) 81 mg DAILY ORAL 02/11/19 09:00 03/10/19 08:59 Carvedilol (Coreg) 25 mg EVERY 12 HOURS ORAL 02/10/19 21:00 03/09/19 20:59 Ceftriaxone Sodium 1 gm/ Dextrose 55 ml @ 110 mls/hr Q24H IVPB 02/10/19 21:00 02/15/19 20:59 Clopidogrel Bisulfate (Plavix) 75 mg DAILY ORAL 02/11/19 09:00 03/10/19 08:59 Dextrose (Dextrose 50%) 25 ml Q30M PRN IV Hypoglycemia 02/10/19 10:30 03/09/19 11:59 Dextrose (Dextrose 50%) 50 ml Q30M PRN IV Hypoglycemia 02/10/19 10:30 03/09/19 11:59 Diltiazem HCl (Cardizem) 10 mg Q1H PRN IV heart rate more than 120, 02/10/19 11:00 03/09/19 11:59 Enalaprilat (Vasotec) 2.5 mg Q6H PRN IV sbp more than 160 02/10/19 12:00 03/09/19 11:59 Gabapentin (Neurontin) 100 mg BID ORAL 02/10/19 18:00 03/09/19 17:59 Heparin Sodium (Porcine) (Heparin 5000 units/ml) 5,000 units EVERY 8 HOURS SUBQ 02/10/19 14:00 03/09/19 21:59 Insulin Aspart (NovoLOG) BEFORE MEALS AND HS SUBQ 02/10/19 11:30 03/09/19 16:29 Levetiracetam (Keppra) 500 mg EVERY 12 HOURS ORAL 02/10/19 21:00 03/09/19 20:59 Morphine Sulfate (Morphine Sulfate) 2 mg Q4H PRN IVP severe Pain (Pain Scale 7-10) 02/10/19 12:00 02/14/19 11:59 Nitroglycerin (Ntg) 0.4 mg Q5M PRN SL Prn Chest Pain 02/10/19 10:15 03/09/19 11:59 Ondansetron HCl (Zofran) 4 mg Q6H PRN IVP Nausea & Vomiting 02/10/19 12:00 03/09/19 11:59 Pantoprazole (Protonix) 40 mg ACBREAKFAST ORAL 02/11/19 06:30 03/13/19 06:29 Paroxetine HCl (Paxil) 20 mg BEDTIME ORAL 02/10/19 21:00 03/09/19 20:59 Polyethylene Glycol (Miralax) 17 gm DAILYPRN PRN ORAL Constipation 02/10/19 12:00 03/09/19 11:59 Tamsulosin HCl (Flomax) 0.4 mg DAILY ORAL 02/11/19 09:00 03/10/19 08:59 Temazepam (Restoril) 15 mg HSPRN PRN ORAL Insomnia 02/10/19 12:00 02/14/19 11:59 Patricia Ortiz M.D. Feb 10, 2019 11:55
[2019-02-10 12:00] VITALS: BP 145/65
[2019-02-10] MEDS ORDERED: Enalaprilat 1.25mg/ml Inj IV PRN (12:00)
[2019-02-10] MEDS ORDERED: Albuterol/Ipratropium 3ml neb HHN PRN (12:00)
[2019-02-10] MEDS ORDERED: Morphine Sulfate 2mg/ml Inj(IV/IM USE ONLY) IVP PRN (12:00)
[2019-02-10] MEDS ORDERED: Miralax 17gm pkt ORAL PRN (12:00)
--- NOTE | 2019-02-10 14:03 | Pulmonology Progress Note ---
Assessment/Plan Problems: (1) ACS (acute coronary syndrome) (2) ESRF (end stage renal failure) (3) AICD (automatic cardioverter/defibrillator) present (4) BPH (benign prostatic hyperplasia) (5) History of seizure (6) Diabetes mellitus Assessment/Plan doing better there is NO pneumonia on CXR serial ekg, troponin sliding scale diabetic diet seizure precaution dvt prophylaxis. Subjective ROS Limited/Unobtainable: No Constitutional: Reports: no symptoms HEENT: Repors: no symptoms Allergies: Coded Allergies: LOSARTAN (Verified Allergy, Unknown, 11/26/18) METOCLOPRAMIDE (Verified Allergy, Unknown, 11/26/18) [id number] REDUCTASE INHIBITOR (Verified Allergy, Unknown, 11/26/18) Objective Last 24 Hour Vital Signs Date Time Temp Pulse Resp B/P (MAP) Pulse Ox O2 Delivery O2 Flow Rate FiO2 02/10/19 09:00 Room Air 02/10/19 08:57 60 140/56 02/10/19 08:00 60 02/10/19 08:00 97.7 60 20 140/56 (84) 96 02/10/19 04:00 98.4 61 18 145/66 (92) 97 02/10/19 04:00 60 02/10/19 00:00 97.7 60 16 115/56 (75) 98 02/10/19 00:00 60 02/09/19 21:00 Room Air 02/09/19 21:00 60 100/56 02/09/19 20:00 60 02/09/19 20:00 97.7 60 18 100/56 (71) 98 02/09/19 16:00 98.1 60 20 140/69 (92) 95 02/09/19 16:00 60 Intake and Output 02/09/19 02/10/19 19:00 07:00 Intake Total 440 ml Balance 440 ml Intake Oral 440 ml # Voids 1 # Bowel Movements 1 General Appearance: WD/WN HEENT: normocephalic, atraumatic Respiratory/Chest: chest wall non-tender, lungs clear Cardiovascular: normal peripheral pulses, normal rate Abdomen: normal bowel sounds, no organomegaly Genitourinary: normal external genitalia Skin: no ulcers Neurologic/Psychiatric: ekg technician II-XII grossly normal Lymphatic: no neck adenopathy Laboratory Tests 02/10/19 05:28: White Blood Count 7.4, Red Blood Count 3.30L, Hemoglobin 11.0L, Hematocrit 33.0L , Mean Corpuscular Volume 100H, Mean Corpuscular Hemoglobin 33.3H, Mean Corpuscular Hemoglobin Concent 33.3, Red Cell Distribution Width 14.1, Platelet Count 149L, Mean Platelet Volume 7.3, Neutrophils (%) (Auto) 68.7, Lymphocytes ( %) (Auto) 13.7L, Monocytes (%) (Auto) 11.9H, Eosinophils (%) (Auto) 4.8H, Basophils (%) (Auto) 0.9, Sodium Level 140, Potassium Level 3.8, Chloride Level 98, Carbon Dioxide Level 28, Anion Gap 15, Blood Urea Nitrogen 20H, Creatinine 7.5H, Estimat Glomerular Filtration Rate , Glucose Level 85, Calcium Level 9.0 Current Medications Medications (Trade) Dose Ordered Sig/Fernando Route PRN Reason Start Time Stop Time Status Last Admin Dose Admin Acetaminophen (Tylenol) 650 mg Q4H PRN ORAL FEVER 02/10/19 10:00 03/09/19 09:59 Albuterol/ Ipratropium (Albuterol/ Ipratropium) 3 ml Q4H PRN HHN Shortness of Breath 02/10/19 12:00 02/12/19 11:59 Amiodarone HCl (Cordarone) 200 mg DAILY ORAL 02/11/19 09:00 03/10/19 08:59 Aspirin (ASA) 81 mg DAILY ORAL 02/11/19 09:00 03/10/19 08:59 Carvedilol (Coreg) 25 mg EVERY 12 HOURS ORAL 02/10/19 21:00 03/09/19 20:59 Ceftriaxone Sodium 1 gm/ Dextrose 55 ml @ 110 mls/hr Q24H IVPB 02/10/19 21:00 02/15/19 20:59 Clopidogrel Bisulfate (Plavix) 75 mg DAILY ORAL 02/11/19 09:00 03/10/19 08:59 Dextrose (Dextrose 50%) 25 ml Q30M PRN IV Hypoglycemia 02/10/19 10:30 03/09/19 11:59 Dextrose (Dextrose 50%) 50 ml Q30M PRN IV Hypoglycemia 02/10/19 10:30 03/09/19 11:59 Diltiazem HCl (Cardizem) 10 mg Q1H PRN IV heart rate more than 120, 02/10/19 11:00 03/09/19 11:59 Enalaprilat (Vasotec) 2.5 mg Q6H PRN IV sbp more than 160 02/10/19 12:00 03/09/19 11:59 Gabapentin (Neurontin) 100 mg BID ORAL 02/10/19 18:00 03/09/19 17:59 Heparin Sodium (Porcine) (Heparin 5000 units/ml) 5,000 units EVERY 8 HOURS SUBQ 02/10/19 14:00 03/09/19 21:59 Insulin Aspart (NovoLOG) BEFORE MEALS AND HS SUBQ 02/10/19 11:30 03/09/19 16:29 Levetiracetam (Keppra) 500 mg EVERY 12 HOURS ORAL 02/10/19 21:00 03/09/19 20:59 Morphine Sulfate (Morphine Sulfate) 2 mg Q4H PRN IVP severe Pain (Pain Scale 7-10) 02/10/19 12:00 02/14/19 11:59 Nitroglycerin (Ntg) 0.4 mg Q5M PRN SL Prn Chest Pain 02/10/19 10:15 03/09/19 11:59 Ondansetron HCl (Zofran) 4 mg Q6H PRN IVP Nausea & Vomiting 02/10/19 12:00 03/09/19 11:59 Pantoprazole (Protonix) 40 mg ACBREAKFAST ORAL 02/11/19 06:30 03/13/19 06:29 Paroxetine HCl (Paxil) 20 mg BEDTIME ORAL 02/10/19 21:00 03/09/19 20:59 Polyethylene Glycol (Miralax) 17 gm DAILYPRN PRN ORAL Constipation 02/10/19 12:00 03/09/19 11:59 Tamsulosin HCl (Flomax) 0.4 mg DAILY ORAL 02/11/19 09:00 03/10/19 08:59 Temazepam (Restoril) 15 mg HSPRN PRN ORAL Insomnia 02/10/19 12:00 02/14/19 11:59 Emiliano Castellanos MD Feb 10, 2019 14:03
--- NOTE | 2019-02-10 14:28 | General Progress Note ---
Assessment/Plan Problem List: (1) ACS (acute coronary syndrome) ICD Codes: I24.9 - Acute ischemic heart disease, unspecified SNOMED: 676503061 (2) ESRF (end stage renal failure) ICD Codes: N18.6 - End stage renal disease SNOMED: 06951565 (3) Diabetes mellitus ICD Codes: E11.9 - Type 2 diabetes mellitus without complications SNOMED: 80758852 (4) History of seizure ICD Codes: Z87.898 - Personal history of other specified conditions SNOMED: 128114071 (5) BPH (benign prostatic hyperplasia) ICD Codes: N40.0 - Benign prostatic hyperplasia without lower urinary tract symptoms SNOMED: 782005014 Status: stable, progressing Assessment/Plan: pt diet dialysis pain control cbc bmp am dc to aru if cardio clear Subjective Constitutional: Reports: weakness Allergies: Coded Allergies: LOSARTAN (Verified Allergy, Unknown, 11/26/18) METOCLOPRAMIDE (Verified Allergy, Unknown, 11/26/18) [id number] REDUCTASE INHIBITOR (Verified Allergy, Unknown, 11/26/18) All Systems: reviewed and negative except above Subjective calm in bed Objective Last 24 Hour Vital Signs Date Time Temp Pulse Resp B/P (MAP) Pulse Ox O2 Delivery O2 Flow Rate FiO2 02/10/19 12:00 98.3 18 18 145/65 (91) 02/10/19 09:00 Room Air 02/10/19 08:57 60 140/56 02/10/19 08:00 60 02/10/19 08:00 97.7 60 20 140/56 (84) 96 02/10/19 04:00 98.4 61 18 145/66 (92) 97 02/10/19 04:00 60 02/10/19 00:00 97.7 60 16 115/56 (75) 98 02/10/19 00:00 60 02/09/19 21:00 Room Air 02/09/19 21:00 60 100/56 02/09/19 20:00 60 02/09/19 20:00 97.7 60 18 100/56 (71) 98 02/09/19 16:00 98.1 60 20 140/69 (92) 95 02/09/19 16:00 60 Intake and Output 02/09/19 02/10/19 19:00 07:00 Intake Total 440 ml Balance 440 ml Intake Oral 440 ml # Voids 1 # Bowel Movements 1 Laboratory Tests 02/10/19 05:28: White Blood Count 7.4, Red Blood Count 3.30L, Hemoglobin 11.0L, Hematocrit 33.0L , Mean Corpuscular Volume 100H, Mean Corpuscular Hemoglobin 33.3H, Mean Corpuscular Hemoglobin Concent 33.3, Red Cell Distribution Width 14.1, Platelet Count 149L, Mean Platelet Volume 7.3, Neutrophils (%) (Auto) 68.7, Lymphocytes ( %) (Auto) 13.7L, Monocytes (%) (Auto) 11.9H, Eosinophils (%) (Auto) 4.8H, Basophils (%) (Auto) 0.9, Sodium Level 140, Potassium Level 3.8, Chloride Level 98, Carbon Dioxide Level 28, Anion Gap 15, Blood Urea Nitrogen 20H, Creatinine 7.5H, Estimat Glomerular Filtration Rate , Glucose Level 85, Calcium Level 9.0 Height (Feet): 5 Height (Inches): 4.00 Weight (Pounds): 148 General Appearance: lethargic EENT: normal ENT inspection Neck: normal alignment Cardiovascular: normal peripheral pulses, normal rate, regular rhythm Respiratory/Chest: chest wall non-tender, lungs clear, normal breath sounds Abdomen: normal bowel sounds, non tender, soft Extremities: normal inspection Edema: no edema noted Arm (L), no edema noted Arm (R), no edema noted Leg (L), no edema noted Leg (R), no edema noted Pedal (L), no edema noted Pedal (R), no edema noted Generalized Neurologic: responsive, motor weakness Skin: normal pigmentation, warm/dry Jethro Novoa DO Feb 10, 2019 14:28
--- NOTE | 2019-02-10 15:17 | Diagnostic Imaging Report ---
APPROVED REPORT CPT Code: 80448 Present Symptoms Comments: Pain BILATERAL: Imaging reveals a patent deep venous system bilaterally. There is no evidence of thrombus within the femoral, popliteal or tibial segments. The greater saphenous veins are also within normal limits. Doppler indicates normal spontaneous flow within these segments.
--- NOTE | 2019-02-10 15:56 | NUR ---
NURSE NOTES: Dr Gilmore phoned for for clearance per Dr Novoa for clearance
[2019-02-10 16:00] VITALS: BP 156/61
--- NOTE | 2019-02-10 17:36 | Cardiac Electrophysiology PN ---
Assessment/Plan Assessment/Plan 1. Chest pain, CABG hx EKG showed no acute ischemic changes and is atrially paced. Troponins were negative, Stress test showed no ischemia or scar 2. Congestive heart failure and volume overload. BNP of more than 21,000. The patient is on hemodialysis and Coreg.EF 55% 3. Status post dual-chamber [employer] right-sided defibrillator implantation, last month ICD was checked, battery 5 years with no arrhythmia. 4. History of paroxysmal atrial fibrillation, atrially paced rhythm, on amiodarone 200 mg daily.On aspirin and Plavix Hold off anticoagulation as ICD showed no arrhythmias. 5. End-stage renal disease, on hemodialysis. 6. History of seizures, on Keppra. 7. Diabetes on insulin. DW RN OK to DC from [facility] standpoint Subjective Subjective Stress test yesterday showed no ischemia or scar. No CP or SOB Objective Last 24 Hour Vital Signs Date Time Temp Pulse Resp B/P (MAP) Pulse Ox O2 Delivery O2 Flow Rate FiO2 02/10/19 12:00 98.3 18 18 145/65 (91) 02/10/19 09:00 Room Air 02/10/19 08:57 60 140/56 02/10/19 08:00 60 02/10/19 08:00 97.7 60 20 140/56 (84) 96 02/10/19 04:00 98.4 61 18 145/66 (92) 97 02/10/19 04:00 60 02/10/19 00:00 97.7 60 16 115/56 (75) 98 02/10/19 00:00 60 02/09/19 21:00 Room Air 02/09/19 21:00 60 100/56 02/09/19 20:00 60 02/09/19 20:00 97.7 60 18 100/56 (71) 98 Intake and Output 02/09/19 02/10/19 19:00 07:00 Intake Total 440 ml Balance 440 ml Intake Oral 440 ml # Voids 1 # Bowel Movements 1 Laboratory Tests Test 02/10/19 05:28 White Blood Count 7.4 K/UL (4.8-10.8) Red Blood Count 3.30 M/UL (4.70-6.10) L Hemoglobin 11.0 G/DL (14.2-18.0) L Hematocrit 33.0 % (42.0-52.0) L Mean Corpuscular Volume 100 FL (80-99) H Mean Corpuscular Hemoglobin 33.3 PG (27.0-31.0) H Mean Corpuscular Hemoglobin Concent 33.3 G/DL (32.0-36.0) Red Cell Distribution Width 14.1 % (11.6-14.8) Platelet Count 149 K/UL (150-450) L Mean Platelet Volume 7.3 FL (6.5-10.1) Neutrophils (%) (Auto) 68.7 % (45.0-75.0) Lymphocytes (%) (Auto) 13.7 % (20.0-45.0) L Monocytes (%) (Auto) 11.9 % (1.0-10.0) H Eosinophils (%) (Auto) 4.8 % (0.0-3.0) H Basophils (%) (Auto) 0.9 % (0.0-2.0) Sodium Level 140 MMOL/L (136-145) Potassium Level 3.8 MMOL/L (3.5-5.1) Chloride Level 98 MMOL/L (98-107) Carbon Dioxide Level 28 MMOL/L (21-32) Anion Gap 15 mmol/L (5-15) Blood Urea Nitrogen 20 mg/dL (7-18) H Creatinine 7.5 MG/DL (0.55-1.30) H Estimat Glomerular Filtration Rate mL/min (>60) Glucose Level 85 MG/DL (74-106) Calcium Level 9.0 MG/DL (8.5-10.1) Objective HEAD AND NECK: No JVD or carotid bruits. LUNGS: Clear. CARDIOVASCULAR: Regular S1 and S2 with no gallop. Defibrillator is in the right subclavian. ABDOMEN: Soft. EXTREMITIES: Have AV shunt to the left arm with bilateral ankle edema. Reno Pinto MD Feb 10, 2019 17:36
--- NOTE | 2019-02-10 19:13 | NUR ---
NURSE NOTES: Dr Gilmore here earlier in shift made aware of of clearance for discharge. Obtained, [employer] relayed message to [facility] case management, states that she will follow up tomorrow. Charge Nurse made aware Dialysis given by [facility] 2 liters out. Tolerated being dialyzed no bleeding to site to left upper arm. Pt has intermittent confusion requires assistance with meal time and hydration . Blood sugar 241 covered with 4 units of insulin at dinner. Current plan will be followed
--- NOTE | 2019-02-10 19:30 | NUR ---
NURSE NOTES: Received report from ALICIA Waterman. Received pt in bed, AOx4, Chinese speaking only, no distress noted. IV R AC patent and intact. L AV shunt on left arm with good bruitt and thrill, covered with 4x4 gauze and tape, no bleeding noted. Bed in lowest position and locked, side rails up x 2, call light within reach. Will continue to monitor.
--- NOTE | 2019-02-10 19:49 | NUR ---
HAND-OFF: Report given to Amrit VARGAS.
[2019-02-10 20:00] VITALS: BP 163/68
[2019-02-10] MEDS ORDERED: cefTRIAXone 1 GM in D5W 55 ML IVPB SCH (21:00)
[2019-02-10] MEDS ORDERED: PARoxetine 20mg tab ORAL SCH (21:00)
--- NOTE | 2019-02-10 21:00 | NUR ---
NURSE NOTES: Noted pt removing dressing from left forearm AV shunt. Applied new [id number] and silk tape to site, instructed by ALICIA Duff in Swedish not to touch the dressing. Will continue to monitor.
[2019-02-11] VITALS (7 sets, daily range): BP systolic 126–160; BP diastolic 59–72
--- NOTE | 2019-02-11 04:58 | NUR ---
NURSE NOTES: Complain of chest pain, no SOB noted, Morphine 2mg IVP given with good relief. Will continue to monitor.
[2019-02-11] MEDS: Heparin 5000 units/ml inj SUBQ SCH ×2 (05:12→14:00)
[2019-02-11] MEDS: NovoLOG Insulin Flexpen SUBQ SCH ×3 (06:30→17:20)
[2019-02-11 06:52] LABS: HEMATOCRIT 34.2 % (42.0-52.0); HEMOGLOBIN 11.3 G/DL (14.2-18.0); LYMPHOCYTES % (AUTO) 17.3 % (20.0-45.0); MEAN CORPUSCULAR VOLUME 102 FL (80-99); NEUTROPHILS % (AUTO) 65.7 % (45.0-75.0); PLATELET COUNT 101 K/UL (150-450); RED BLOOD COUNT 3.35 M/UL (4.70-6.10); RED CELL DISTRIBUTION WIDTH 15.5 % (11.6-14.8); WHITE BLOOD COUNT 6.4 K/UL (4.8-10.8)
[2019-02-11 07:07] LABS: ANION GAP 12 mmol/L (5-15); BLOOD UREA NITROGEN 22 mg/dL (7-18); CARBON DIOXIDE 29 MMOL/L (21-32); CHLORIDE 100 MMOL/L (98-107); CREATININE 6.1 MG/DL (0.55-1.30); POTASSIUM 4.2 MMOL/L (3.5-5.1); SODIUM 140 MMOL/L (136-145)
--- NOTE | 2019-02-11 07:25 | NUR ---
NURSE NOTES: Report received from ALICIA Marcus. Pt. sleeping comfortably. In RA. No breathing distress noted. White board updated. Bed on lowest position, side rails upx2. Brakes engaged. Call light within easy reach.
--- NOTE | 2019-02-11 07:41 | NUR ---
HAND-OFF: Report given to ALICIA Chan. Pt in stable condition.
[2019-02-11] MEDS ORDERED: Aspirin Baby 81mg ORAL SCH (09:00)
[2019-02-11] MEDS ORDERED: Tamsulosin 0.4mg cap ORAL SCH (09:00)
[2019-02-11] MEDS ORDERED: Amiodarone 200mg tab ORAL SCH (09:00)
[2019-02-11] MEDS: Carvedilol 25mg Tab ORAL SCH (09:00)
--- NOTE | 2019-02-11 11:14 | Hematology/Onc Progress Note ---
Assessment/Plan Assessment/Plan Assessment/Plan # Thrombocytopenia - potential causes multifactorial, evaluate liver and viral etiologies to begin, also could be related to underlying medications patient has received. --> Hep panel and HIV NR --> US abd to evaluate for cirrhosis and hsm consider to order --> Peripheral smear ordered to evaluate for blasts /schistocytes --> abx and other meds have been reviewed --> ok for ppx if plt >50k w/ either heparin or lovenox --> Transfuse if Plt < 20k and fever, or if Plt < 10k without fever --> plt trend 156-->128k-->149k-->101k # Anemia of chronic disease due to underlying chronic medical issues, multifactorial (likely in this case due to kidney disease) --> Anemia workup has been reviewed and ferritin 644 --> No evidence of hemolysis is noted, peripheral smear has been reviewed --> Hgb goal >7. Transfuse prn. --> Epogen or iron at this time is not particularly indicated --> if lower hgb < 11 consider epo --> Medications have been reviewed --> low threshold for gi evaluation in case has occult + --> hgb trend 10.1-->10.6-->11-->11.3 # Congestive heart failure and volume overload. BNP of more than 21,000. The patient is on hemodialysis and Coreg.EF 55% --> per renal HD --> stress test with cards # Status post dual-chamber [employer] right-sided defibrillator implantation, last month ICD was checked, that started 5 years with no arrhythmia. --> hold off anticoag # History of paroxysmal atrial fibrillation, atrially paced rhythm, on amiodarone 200 mg daily. --> asa/plavix # End-stage renal disease, on hemodialysis. --> per renal, hd 3x week (02/10) # History of seizures, on Keppra. # Diabetes on insulin. # Dvt ppx scds The timing of this note does not necessarily reflect the time of the patient was seen. Greatly appreciate consultation. Subjective Allergies: Coded Allergies: LOSARTAN (Verified Allergy, Unknown, 11/26/18) METOCLOPRAMIDE (Verified Allergy, Unknown, 11/26/18) [id number] REDUCTASE INHIBITOR (Verified Allergy, Unknown, 11/26/18) Subjective 02/09: no fevers or chills, no bleeding, labs noted 02/10: no events, no f/c, no bleeding, hd for today 02/11: no fever or chills, on abx, no sob, pain relieved with morphine Objective Objective Current Medications Medications (Trade) Dose Ordered Sig/Fernando Route PRN Reason Start Time Stop Time Status Last Admin Dose Admin Acetaminophen (Tylenol) 650 mg Q4H PRN ORAL FEVER 02/10/19 10:00 03/09/19 09:59 Albuterol/ Ipratropium (Albuterol/ Ipratropium) 3 ml Q4H PRN HHN Shortness of Breath 02/10/19 12:00 02/12/19 11:59 Amiodarone HCl (Cordarone) 200 mg DAILY ORAL 02/11/19 09:00 03/10/19 08:59 02/11/19 08:52 Aspirin (ASA) 81 mg DAILY ORAL 02/11/19 09:00 03/10/19 08:59 02/11/19 08:53 Carvedilol (Coreg) 25 mg EVERY 12 HOURS ORAL 02/10/19 21:00 03/09/19 20:59 02/10/19 22:16 Ceftriaxone Sodium 1 gm/ Dextrose 55 ml @ 110 mls/hr Q24H IVPB 02/10/19 21:00 02/15/19 20:59 02/10/19 22:15 Clopidogrel Bisulfate (Plavix) 75 mg DAILY ORAL 02/11/19 09:00 03/10/19 08:59 02/11/19 08:53 Dextrose (Dextrose 50%) 25 ml Q30M PRN IV Hypoglycemia 02/10/19 10:30 03/09/19 11:59 Dextrose (Dextrose 50%) 50 ml Q30M PRN IV Hypoglycemia 02/10/19 10:30 03/09/19 11:59 Diltiazem HCl (Cardizem) 10 mg Q1H PRN IV heart rate more than 120, 02/10/19 11:00 03/09/19 11:59 Enalaprilat (Vasotec) 2.5 mg Q6H PRN IV sbp more than 160 02/10/19 12:00 03/09/19 11:59 Gabapentin (Neurontin) 100 mg BID ORAL 02/10/19 18:00 03/09/19 17:59 02/11/19 08:53 Heparin Sodium (Porcine) (Heparin 5000 units/ml) 5,000 units EVERY 8 HOURS SUBQ 02/10/19 14:00 03/09/19 21:59 02/11/19 05:12 Insulin Aspart (NovoLOG) BEFORE MEALS AND HS SUBQ 02/10/19 11:30 03/09/19 16:29 02/10/19 22:17 Levetiracetam (Keppra) 500 mg EVERY 12 HOURS ORAL 02/10/19 21:00 03/09/19 20:59 02/11/19 08:52 Morphine Sulfate (Morphine Sulfate) 2 mg Q4H PRN IVP severe Pain (Pain Scale 7-10) 02/10/19 12:00 02/14/19 11:59 02/11/19 04:58 Nitroglycerin (Ntg) 0.4 mg Q5M PRN SL Prn Chest Pain 02/10/19 10:15 03/09/19 11:59 Ondansetron HCl (Zofran) 4 mg Q6H PRN IVP Nausea & Vomiting 02/10/19 12:00 03/09/19 11:59 Pantoprazole (Protonix) 40 mg ACBREAKFAST ORAL 02/11/19 06:30 03/13/19 06:29 02/11/19 06:35 Paroxetine HCl (Paxil) 20 mg BEDTIME ORAL 02/10/19 21:00 03/09/19 20:59 02/10/19 22:15 Polyethylene Glycol (Miralax) 17 gm DAILYPRN PRN ORAL Constipation 02/10/19 12:00 03/09/19 11:59 Tamsulosin HCl (Flomax) 0.4 mg DAILY ORAL 02/11/19 09:00 03/10/19 08:59 02/11/19 08:53 Temazepam (Restoril) 15 mg HSPRN PRN ORAL Insomnia 02/10/19 12:00 02/14/19 11:59 Last 24 Hour Vital Signs Date Time Temp Pulse Resp B/P (MAP) Pulse Ox O2 Delivery O2 Flow Rate FiO2 02/11/19 09:00 60 153/64 02/11/19 09:00 Room Air 02/11/19 08:00 97.6 60 18 153/64 (93) 96 02/11/19 05:30 62 18 145/64 (91) 95 02/11/19 04:50 98.2 61 18 160/72 (101) 96 02/11/19 00:00 98.2 60 17 152/64 (93) 95 02/10/19 22:16 61 163/68 02/10/19 21:00 Room Air 02/10/19 20:00 98.7 61 17 163/68 (99) 94 02/10/19 16:00 98.1 60 20 156/61 (92) 02/10/19 12:00 98.3 18 18 145/65 (91) 02/10/19 09:00 Room Air 02/10/19 08:57 60 140/56 02/10/19 08:00 60 02/10/19 08:00 97.7 60 20 140/56 (84) 96 02/10/19 04:00 98.4 61 18 145/66 (92) 97 02/10/19 04:00 60 02/10/19 00:00 97.7 60 16 115/56 (75) 98 02/10/19 00:00 60 02/09/19 21:00 Room Air 02/09/19 21:00 60 100/56 02/09/19 20:00 60 02/09/19 20:00 97.7 60 18 100/56 (71) 98 02/09/19 16:00 98.1 60 20 140/69 (92) 95 02/09/19 16:00 60 02/09/19 12:00 97.7 61 21 146/63 (90) 95 02/09/19 12:00 60 Intake and Output 02/10/19 02/11/19 19:00 07:00 Intake Total 440 ml 175 ml Output Total 2000 ml Balance -1560 ml 175 ml Intake Oral 440 ml 120 ml IV Total 55 ml Output Hemodialysis UF 2000 ml Labs Test 02/08/19 11:56 02/09/19 05:05 02/10/19 05:28 02/11/19 05:20 Troponin I 0.009 ng/mL (0.000-0.056) 0.000 ng/mL (0.000-0.056) Hepatitis B Surface Antigen Negative (NEGATIVE) White Blood Count 5.9 K/UL (4.8-10.8) 7.4 K/UL (4.8-10.8) 6.4 K/UL (4.8-10.8) Red Blood Count 3.14 M/UL (4.70-6.10) 3.30 M/UL (4.70-6.10) 3.35 M/UL (4.70-6.10) Hemoglobin 10.6 G/DL (14.2-18.0) 11.0 G/DL (14.2-18.0) 11.3 G/DL (14.2-18.0) Hematocrit 31.2 % (42.0-52.0) 33.0 % (42.0-52.0) 34.2 % (42.0-52.0) Mean Corpuscular Volume 99 FL (80-99) 100 FL (80-99) 102 FL (80-99) Mean Corpuscular Hemoglobin 33.8 PG (27.0-31.0) 33.3 PG (27.0-31.0) 33.8 PG (27.0-31.0) Mean Corpuscular Hemoglobin Concent 34.1 G/DL (32.0-36.0) 33.3 G/DL (32.0-36.0) 33.1 G/DL (32.0-36.0) Red Cell Distribution Width 13.4 % (11.6-14.8) 14.1 % (11.6-14.8) 15.5 % (11.6-14.8) Platelet Count 128 K/UL (150-450) 149 K/UL (150-450) 101 K/UL (150-450) Mean Platelet Volume 6.3 FL (6.5-10.1) 7.3 FL (6.5-10.1) 7.6 FL (6.5-10.1) Neutrophils (%) (Auto) 66.6 % (45.0-75.0) 68.7 % (45.0-75.0) 65.7 % (45.0-75.0) Lymphocytes (%) (Auto) 15.7 % (20.0-45.0) 13.7 % (20.0-45.0) 17.3 % (20.0-45.0) Monocytes (%) (Auto) 11.3 % (1.0-10.0) 11.9 % (1.0-10.0) 11.0 % (1.0-10.0) Eosinophils (%) (Auto) 5.3 % (0.0-3.0) 4.8 % (0.0-3.0) 5.0 % (0.0-3.0) Basophils (%) (Auto) 1.0 % (0.0-2.0) 0.9 % (0.0-2.0) 1.0 % (0.0-2.0) Sodium Level 141 MMOL/L (136-145) 140 MMOL/L (136-145) 140 MMOL/L (136-145) Potassium Level 4.0 MMOL/L (3.5-5.1) 3.8 MMOL/L (3.5-5.1) 4.2 MMOL/L (3.5-5.1) Chloride Level 100 MMOL/L (98-107) 98 MMOL/L (98-107) 100 MMOL/L (98-107) Carbon Dioxide Level 28 MMOL/L (21-32) 28 MMOL/L (21-32) 29 MMOL/L (21-32) Anion Gap 14 mmol/L (5-15) 15 mmol/L (5-15) 12 mmol/L (5-15) Blood Urea Nitrogen 23 mg/dL (7-18) 20 mg/dL (7-18) 22 mg/dL (7-18) Creatinine 5.9 MG/DL (0.55-1.30) 7.5 MG/DL (0.55-1.30) 6.1 MG/DL (0.55-1.30) Estimat Glomerular Filtration Rate mL/min (>60) mL/min (>60) mL/min (>60) Glucose Level 117 MG/DL (74-106) 85 MG/DL (74-106) 103 MG/DL (74-106) Hemoglobin A1c 5.5 % (4.3-6.0) Uric Acid 4.0 MG/DL (2.6-7.2) Calcium Level 8.9 MG/DL (8.5-10.1) 9.0 MG/DL (8.5-10.1) 9.0 MG/DL (8.5-10.1) Phosphorus Level 2.9 MG/DL (2.5-4.9) Magnesium Level 2.2 MG/DL (1.8-2.4) Iron Level 47 ug/dL (50-175) Total Iron Binding Capacity 154 ug/dL (250-450) Percent Iron Saturation 31 % (15-50) Unsaturated Iron Binding 107 ug/dL (112-346) Ferritin 644 NG/ML (8-388) Total Bilirubin 0.9 MG/DL (0.2-1.0) Gamma Glutamyl Transpeptidase 333 U/L (5-85) Aspartate Amino Transf (AST/SGOT) 22 U/L (15-37) Alanine Aminotransferase (ALT/SGPT) 18 U/L (12-78) Alkaline Phosphatase 195 U/L (46-116) C-Reactive Protein, Quantitative 4.6 mg/dL (0.00-0.90) Pro-B-Type Natriuretic Peptide 14193 pg/mL (0-125) Total Protein 6.7 G/DL (6.4-8.2) Albumin 2.7 G/DL (3.4-5.0) Globulin 4.0 g/dL Albumin/Globulin Ratio 0.7 (1.0-2.7) Vitamin B12 Level 756 PG/ML (193-986) Folate 50.1 NG/ML (8.6-58.9) HIV (1&2) Antibody Rapid Negative (NEGATIVE) Height (Feet): 5 Height (Inches): 4.00 Weight (Pounds): 148 Objective Vitals: reviewed General Appearance: NAD HEENT: normocephalic, atraumatic Neck: non-tender, normal alignment Respiratory/Chest: ++ crackles b/l Cardiovascular/Chest: normal peripheral pulses, normal rate Abdomen: normal bowel sounds, soft, nontender Extremities: normal range of motion ++ left avf shunt 1-2++ edema Reinier Kemp MD Feb 11, 2019 11:14
--- NOTE | 2019-02-11 11:39 | Infectious Diseases Prog Note ---
Assessment/Plan Assessment/Plan Assessment: Chest pain Pneumonia -CXR: Accentuation of bronchovascular markings. Mild consolidation in the left lung base. -troponins neg x2 Afebrile No leukocytosis HTN HLD ESRD on HD TTS s/p PPM/AICD seizure disorder Anemia of chronic kidney disease BPH neuropathy CAD Dm2 [place] resident Plan: -Continue Ceftriaxone #4 (abx d #5/5-7 for PNA) -02/08 SP Cefepime #2 -02/07 SP IV Vancomycin x1 -f/u cx -Monitor CBC/CMP, temperatures -CXR am Thank you for this consultation. Will continue to follow along with you. Discussed with RN Subjective Allergies: Coded Allergies: LOSARTAN (Verified Allergy, Unknown, 11/26/18) METOCLOPRAMIDE (Verified Allergy, Unknown, 11/26/18) [id number] REDUCTASE INHIBITOR (Verified Allergy, Unknown, 11/26/18) Subjective afebrile no leukocytosis Objective Vital Signs Last 24 Hour Vital Signs Date Time Temp Pulse Resp B/P (MAP) Pulse Ox O2 Delivery O2 Flow Rate FiO2 02/11/19 09:00 60 153/64 02/11/19 09:00 Room Air 02/11/19 08:00 97.6 60 18 153/64 (93) 96 02/11/19 05:30 62 18 145/64 (91) 95 02/11/19 04:50 98.2 61 18 160/72 (101) 96 02/11/19 00:00 98.2 60 17 152/64 (93) 95 02/10/19 22:16 61 163/68 02/10/19 21:00 Room Air 02/10/19 20:00 98.7 61 17 163/68 (99) 94 02/10/19 16:00 98.1 60 20 156/61 (92) 02/10/19 12:00 98.3 18 18 145/65 (91) Height (Feet): 5 Height (Inches): 4.00 Weight (Pounds): 148 Objective GENERAL: Calm in bed, oriented x2, in no acute distress. CARDIOVASCULAR: No murmur. LUNGS: Distant and clear. ABDOMEN: Bowel sounds positive. Nontender. Nondistended. EXTREMITIES: No cyanosis, clubbing, or edema. NEUROLOGIC: The patient moves all extremities, slightly weak. Laboratory Tests Test 02/11/19 05:20 White Blood Count 6.4 K/UL (4.8-10.8) Red Blood Count 3.35 M/UL (4.70-6.10) L Hemoglobin 11.3 G/DL (14.2-18.0) L Hematocrit 34.2 % (42.0-52.0) L Mean Corpuscular Volume 102 FL (80-99) H Mean Corpuscular Hemoglobin 33.8 PG (27.0-31.0) H Mean Corpuscular Hemoglobin Concent 33.1 G/DL (32.0-36.0) Red Cell Distribution Width 15.5 % (11.6-14.8) H Platelet Count 101 K/UL (150-450) L Mean Platelet Volume 7.6 FL (6.5-10.1) Neutrophils (%) (Auto) 65.7 % (45.0-75.0) Lymphocytes (%) (Auto) 17.3 % (20.0-45.0) L Monocytes (%) (Auto) 11.0 % (1.0-10.0) H Eosinophils (%) (Auto) 5.0 % (0.0-3.0) H Basophils (%) (Auto) 1.0 % (0.0-2.0) Sodium Level 140 MMOL/L (136-145) Potassium Level 4.2 MMOL/L (3.5-5.1) Chloride Level 100 MMOL/L (98-107) Carbon Dioxide Level 29 MMOL/L (21-32) Anion Gap 12 mmol/L (5-15) Blood Urea Nitrogen 22 mg/dL (7-18) H Creatinine 6.1 MG/DL (0.55-1.30) H Estimat Glomerular Filtration Rate mL/min (>60) Glucose Level 103 MG/DL (74-106) Calcium Level 9.0 MG/DL (8.5-10.1) Current Medications Medications (Trade) Dose Ordered Sig/Fernando Route PRN Reason Start Time Stop Time Status Last Admin Dose Admin Acetaminophen (Tylenol) 650 mg Q4H PRN ORAL FEVER 02/10/19 10:00 03/09/19 09:59 Albuterol/ Ipratropium (Albuterol/ Ipratropium) 3 ml Q4H PRN HHN Shortness of Breath 02/10/19 12:00 9/13/19 11:59 Amiodarone HCl (Cordarone) 200 mg DAILY ORAL 02/11/19 09:00 03/10/19 08:59 02/11/19 08:52 Aspirin (ASA) 81 mg DAILY ORAL 02/11/19 09:00 03/10/19 08:59 02/11/19 08:53 Carvedilol (Coreg) 25 mg EVERY 12 HOURS ORAL 02/10/19 21:00 03/09/19 20:59 02/10/19 22:16 Ceftriaxone Sodium 1 gm/ Dextrose 55 ml @ 110 mls/hr Q24H IVPB 02/10/19 21:00 02/15/19 20:59 02/10/19 22:15 Clopidogrel Bisulfate (Plavix) 75 mg DAILY ORAL 02/11/19 09:00 03/10/19 08:59 02/11/19 08:53 Dextrose (Dextrose 50%) 25 ml Q30M PRN IV Hypoglycemia 02/10/19 10:30 03/09/19 11:59 Dextrose (Dextrose 50%) 50 ml Q30M PRN IV Hypoglycemia 02/10/19 10:30 03/09/19 11:59 Diltiazem HCl (Cardizem) 10 mg Q1H PRN IV heart rate more than 120, 02/10/19 11:00 03/09/19 11:59 Enalaprilat (Vasotec) 2.5 mg Q6H PRN IV sbp more than 160 02/10/19 12:00 03/09/19 11:59 Gabapentin (Neurontin) 100 mg BID ORAL 02/10/19 18:00 03/09/19 17:59 02/11/19 08:53 Heparin Sodium (Porcine) (Heparin 5000 units/ml) 5,000 units EVERY 8 HOURS SUBQ 02/10/19 14:00 03/09/19 21:59 02/11/19 05:12 Insulin Aspart (NovoLOG) BEFORE MEALS AND HS SUBQ 02/10/19 11:30 03/09/19 16:29 02/10/19 22:17 Levetiracetam (Keppra) 500 mg EVERY 12 HOURS ORAL 02/10/19 21:00 03/09/19 20:59 02/11/19 08:52 Morphine Sulfate (Morphine Sulfate) 2 mg Q4H PRN IVP severe Pain (Pain Scale 7-10) 02/10/19 12:00 02/14/19 11:59 02/11/19 04:58 Nitroglycerin (Ntg) 0.4 mg Q5M PRN SL Prn Chest Pain 02/10/19 10:15 03/09/19 11:59 Ondansetron HCl (Zofran) 4 mg Q6H PRN IVP Nausea & Vomiting 02/10/19 12:00 03/09/19 11:59 Pantoprazole (Protonix) 40 mg ACBREAKFAST ORAL 02/11/19 06:30 03/13/19 06:29 02/11/19 06:35 Paroxetine HCl (Paxil) 20 mg BEDTIME ORAL 02/10/19 21:00 03/09/19 20:59 02/10/19 22:15 Polyethylene Glycol (Miralax) 17 gm DAILYPRN PRN ORAL Constipation 02/10/19 12:00 03/09/19 11:59 Tamsulosin HCl (Flomax) 0.4 mg DAILY ORAL 02/11/19 09:00 03/10/19 08:59 02/11/19 08:53 Temazepam (Restoril) 15 mg HSPRN PRN ORAL Insomnia 02/10/19 12:00 02/14/19 11:59 Patricia Ortiz M.D. Feb 11, 2019 11:39
--- NOTE | 2019-02-11 12:19 | Pulmonology Progress Note ---
Assessment/Plan Problems: (1) ACS (acute coronary syndrome) (2) ESRF (end stage renal failure) (3) AICD (automatic cardioverter/defibrillator) present (4) BPH (benign prostatic hyperplasia) (5) History of seizure (6) Diabetes mellitus Assessment/Plan doing better walking better with PT there is NO pneumonia on CXR serial ekg, troponin sliding scale diabetic diet seizure precaution dvt prophylaxis. Subjective ROS Limited/Unobtainable: No Constitutional: Reports: no symptoms HEENT: Repors: no symptoms Respiratory: Reports: no symptoms Allergies: Coded Allergies: LOSARTAN (Verified Allergy, Unknown, 11/26/18) METOCLOPRAMIDE (Verified Allergy, Unknown, 11/26/18) [id number] REDUCTASE INHIBITOR (Verified Allergy, Unknown, 11/26/18) Objective Last 24 Hour Vital Signs Date Time Temp Pulse Resp B/P (MAP) Pulse Ox O2 Delivery O2 Flow Rate FiO2 02/11/19 09:00 60 153/64 02/11/19 09:00 Room Air 02/11/19 08:00 97.6 60 18 153/64 (93) 96 02/11/19 05:30 62 18 145/64 (91) 95 02/11/19 04:50 98.2 61 18 160/72 (101) 96 02/11/19 00:00 98.2 60 17 152/64 (93) 95 02/10/19 22:16 61 163/68 02/10/19 21:00 Room Air 02/10/19 20:00 98.7 61 17 163/68 (99) 94 02/10/19 16:00 98.1 60 20 156/61 (92) Intake and Output 02/10/19 02/11/19 19:00 07:00 Intake Total 440 ml 175 ml Output Total 2000 ml Balance -1560 ml 175 ml Intake Oral 440 ml 120 ml IV Total 55 ml Output Hemodialysis UF 2000 ml General Appearance: WD/WN HEENT: normocephalic, anicteric Cardiovascular: normal peripheral pulses, normal rate Abdomen: normal bowel sounds, soft, non tender, no scars Extremities: no cyanosis Skin: no ulcers Neurologic/Psychiatric: no motor/sensory deficits Laboratory Tests 02/11/19 05:20: White Blood Count 6.4, Red Blood Count 3.35L, Hemoglobin 11.3L, Hematocrit 34.2L , Mean Corpuscular Volume 102H, Mean Corpuscular Hemoglobin 33.8H, Mean Corpuscular Hemoglobin Concent 33.1, Red Cell Distribution Width 15.5H, Platelet Count 101L, Mean Platelet Volume 7.6, Neutrophils (%) (Auto) 65.7, Lymphocytes (%) (Auto) 17.3L, Monocytes (%) (Auto) 11.0H, Eosinophils (%) (Auto ) 5.0H, Basophils (%) (Auto) 1.0, Sodium Level 140, Potassium Level 4.2, Chloride Level 100, Carbon Dioxide Level 29, Anion Gap 12, Blood Urea Nitrogen 22H, Creatinine 6.1H, Estimat Glomerular Filtration Rate , Glucose Level 103, Calcium Level 9.0 Current Medications Medications (Trade) Dose Ordered Sig/Fernando Route PRN Reason Start Time Stop Time Status Last Admin Dose Admin Acetaminophen (Tylenol) 650 mg Q4H PRN ORAL FEVER 02/10/19 10:00 03/09/19 09:59 Albuterol/ Ipratropium (Albuterol/ Ipratropium) 3 ml Q4H PRN HHN Shortness of Breath 02/10/19 12:00 02/12/19 11:59 Amiodarone HCl (Cordarone) 200 mg DAILY ORAL 02/11/19 09:00 03/10/19 08:59 02/11/19 08:52 Aspirin (ASA) 81 mg DAILY ORAL 02/11/19 09:00 03/10/19 08:59 02/11/19 08:53 Carvedilol (Coreg) 25 mg EVERY 12 HOURS ORAL 02/10/19 21:00 03/09/19 20:59 02/10/19 22:16 Ceftriaxone Sodium 1 gm/ Dextrose 55 ml @ 110 mls/hr Q24H IVPB 02/10/19 21:00 02/15/19 20:59 02/10/19 22:15 Clopidogrel Bisulfate (Plavix) 75 mg DAILY ORAL 02/11/19 09:00 03/10/19 08:59 02/11/19 08:53 Dextrose (Dextrose 50%) 25 ml Q30M PRN IV Hypoglycemia 02/10/19 10:30 03/09/19 11:59 Dextrose (Dextrose 50%) 50 ml Q30M PRN IV Hypoglycemia 02/10/19 10:30 03/09/19 11:59 Diltiazem HCl (Cardizem) 10 mg Q1H PRN IV heart rate more than 120, 02/10/19 11:00 03/09/19 11:59 Enalaprilat (Vasotec) 2.5 mg Q6H PRN IV sbp more than 160 02/10/19 12:00 03/09/19 11:59 Gabapentin (Neurontin) 100 mg BID ORAL 02/10/19 18:00 03/09/19 17:59 02/11/19 08:53 Heparin Sodium (Porcine) (Heparin 5000 units/ml) 5,000 units EVERY 8 HOURS SUBQ 02/10/19 14:00 03/09/19 21:59 02/11/19 05:12 Insulin Aspart (NovoLOG) BEFORE MEALS AND HS SUBQ 02/10/19 11:30 03/09/19 16:29 02/11/19 12:09 Levetiracetam (Keppra) 500 mg EVERY 12 HOURS ORAL 02/10/19 21:00 03/09/19 20:59 02/11/19 08:52 Morphine Sulfate (Morphine Sulfate) 2 mg Q4H PRN IVP severe Pain (Pain Scale 7-10) 02/10/19 12:00 02/14/19 11:59 02/11/19 04:58 Nitroglycerin (Ntg) 0.4 mg Q5M PRN SL Prn Chest Pain 02/10/19 10:15 03/09/19 11:59 Ondansetron HCl (Zofran) 4 mg Q6H PRN IVP Nausea & Vomiting 02/10/19 12:00 03/09/19 11:59 Pantoprazole (Protonix) 40 mg ACBREAKFAST ORAL 02/11/19 06:30 03/13/19 06:29 02/11/19 06:35 Paroxetine HCl (Paxil) 20 mg BEDTIME ORAL 02/10/19 21:00 03/09/19 20:59 02/10/19 22:15 Polyethylene Glycol (Miralax) 17 gm DAILYPRN PRN ORAL Constipation 02/10/19 12:00 03/09/19 11:59 Tamsulosin HCl (Flomax) 0.4 mg DAILY ORAL 02/11/19 09:00 03/10/19 08:59 02/11/19 08:53 Temazepam (Restoril) 15 mg HSPRN PRN ORAL Insomnia 02/10/19 12:00 02/14/19 11:59 Emiliano Castellanos MD Feb 11, 2019 12:19
--- NOTE | 2019-02-11 13:33 | General Progress Note ---
Assessment/Plan Problem List: (1) ACS (acute coronary syndrome) ICD Codes: I24.9 - Acute ischemic heart disease, unspecified SNOMED: 531653555 (2) ESRF (end stage renal failure) ICD Codes: N18.6 - End stage renal disease SNOMED: 18471542 (3) Diabetes mellitus ICD Codes: E11.9 - Type 2 diabetes mellitus without complications SNOMED: 79021121 (4) History of seizure ICD Codes: Z87.898 - Personal history of other specified conditions SNOMED: 501043140 (5) BPH (benign prostatic hyperplasia) ICD Codes: N40.0 - Benign prostatic hyperplasia without lower urinary tract symptoms SNOMED: 323801655 Status: stable, progressing Assessment/Plan: pt diet dialysis pain control dc if cardio clear Subjective Constitutional: Reports: weakness Allergies: Coded Allergies: LOSARTAN (Verified Allergy, Unknown, 11/26/18) METOCLOPRAMIDE (Verified Allergy, Unknown, 11/26/18) [id number] REDUCTASE INHIBITOR (Verified Allergy, Unknown, 11/26/18) All Systems: reviewed and negative except above Subjective calm in bed Objective Last 24 Hour Vital Signs Date Time Temp Pulse Resp B/P (MAP) Pulse Ox O2 Delivery O2 Flow Rate FiO2 02/11/19 12:00 97.5 61 18 155/65 (95) 98 02/11/19 09:00 60 153/64 02/11/19 09:00 Room Air 02/11/19 08:00 97.6 60 18 153/64 (93) 96 02/11/19 05:30 62 18 145/64 (91) 95 02/11/19 04:50 98.2 61 18 160/72 (101) 96 02/11/19 00:00 98.2 60 17 152/64 (93) 95 02/10/19 22:16 61 163/68 02/10/19 21:00 Room Air 02/10/19 20:00 98.7 61 17 163/68 (99) 94 02/10/19 16:00 98.1 60 20 156/61 (92) Intake and Output 02/10/19 02/11/19 19:00 07:00 Intake Total 440 ml 175 ml Output Total 2000 ml Balance -1560 ml 175 ml Intake Oral 440 ml 120 ml IV Total 55 ml Output Hemodialysis UF 2000 ml Laboratory Tests 02/11/19 05:20: White Blood Count 6.4, Red Blood Count 3.35L, Hemoglobin 11.3L, Hematocrit 34.2L , Mean Corpuscular Volume 102H, Mean Corpuscular Hemoglobin 33.8H, Mean Corpuscular Hemoglobin Concent 33.1, Red Cell Distribution Width 15.5H, Platelet Count 101L, Mean Platelet Volume 7.6, Neutrophils (%) (Auto) 65.7, Lymphocytes (%) (Auto) 17.3L, Monocytes (%) (Auto) 11.0H, Eosinophils (%) (Auto ) 5.0H, Basophils (%) (Auto) 1.0, Sodium Level 140, Potassium Level 4.2, Chloride Level 100, Carbon Dioxide Level 29, Anion Gap 12, Blood Urea Nitrogen 22H, Creatinine 6.1H, Estimat Glomerular Filtration Rate , Glucose Level 103, Calcium Level 9.0 Height (Feet): 5 Height (Inches): 4.00 Weight (Pounds): 148 General Appearance: lethargic EENT: normal ENT inspection Neck: normal alignment Cardiovascular: normal peripheral pulses, normal rate, regular rhythm Respiratory/Chest: chest wall non-tender, lungs clear, normal breath sounds Abdomen: normal bowel sounds, non tender, soft Extremities: normal inspection Edema: no edema noted Arm (L), no edema noted Arm (R), no edema noted Leg (L), no edema noted Leg (R), no edema noted Pedal (L), no edema noted Pedal (R), no edema noted Generalized Neurologic: responsive, motor weakness Skin: normal pigmentation, warm/dry Jethro Novoa DO Feb 11, 2019 13:33
--- NOTE | 2019-02-11 15:50 | Nephrology Progress Note ---
Assessment/Plan Problem List: (1) ESRF (end stage renal failure) (2) ACS (acute coronary syndrome) (3) Pneumonia (4) BPH (benign prostatic hyperplasia) (5) AICD (automatic cardioverter/defibrillator) present Assessment Coded Allergies: LOSARTAN (Verified Allergy, Unknown, 11/26/18) METOCLOPRAMIDE (Verified Allergy, Unknown, 11/26/18) [id number] REDUCTASE INHIBITOR (Verified Allergy, Unknown, 11/26/18) Hx Cardiac Problems: Yes - CHF, hyperlipidemia Hx Pacemaker: Yes Hx Diabetes: Yes Hx Dialysis: Yes - MWF ACS ESRD HTN BPH DM Plan HD 02/08 repeat 02/10 antibiotic pulmonary toilet optimize cardiac status stress test due 02/09 ! Subjective ROS Limited/Unobtainable: No Objective Objective Last 24 Hour Vital Signs Date Time Temp Pulse Resp B/P (MAP) Pulse Ox O2 Delivery O2 Flow Rate FiO2 02/11/19 12:00 97.5 61 18 155/65 (95) 98 02/11/19 09:00 60 153/64 02/11/19 09:00 Room Air 02/11/19 08:00 97.6 60 18 153/64 (93) 96 02/11/19 05:30 62 18 145/64 (91) 95 02/11/19 04:50 98.2 61 18 160/72 (101) 96 02/11/19 00:00 98.2 60 17 152/64 (93) 95 02/10/19 22:16 61 163/68 02/10/19 21:00 Room Air 02/10/19 20:00 98.7 61 17 163/68 (99) 94 02/10/19 16:00 98.1 60 20 156/61 (92) Intake and Output 02/10/19 02/11/19 19:00 07:00 Intake Total 440 ml 175 ml Output Total 2000 ml Balance -1560 ml 175 ml Intake Oral 440 ml 120 ml IV Total 55 ml Output Hemodialysis UF 2000 ml Laboratory Tests 02/11/19 05:20: White Blood Count 6.4, Red Blood Count 3.35L, Hemoglobin 11.3L, Hematocrit 34.2L , Mean Corpuscular Volume 102H, Mean Corpuscular Hemoglobin 33.8H, Mean Corpuscular Hemoglobin Concent 33.1, Red Cell Distribution Width 15.5H, Platelet Count 101L, Mean Platelet Volume 7.6, Neutrophils (%) (Auto) 65.7, Lymphocytes (%) (Auto) 17.3L, Monocytes (%) (Auto) 11.0H, Eosinophils (%) (Auto ) 5.0H, Basophils (%) (Auto) 1.0, Sodium Level 140, Potassium Level 4.2, Chloride Level 100, Carbon Dioxide Level 29, Anion Gap 12, Blood Urea Nitrogen 22H, Creatinine 6.1H, Estimat Glomerular Filtration Rate , Glucose Level 103, Calcium Level 9.0 Height (Feet): 5 Height (Inches): 4.00 Weight (Pounds): 148 General Appearance: no apparent distress Objective no change Manolo Grimes MD Feb 11, 2019 15:50
--- NOTE | 2019-02-11 16:06 | NUR ---
NURSE NOTES: Report received from ALICIA Hardin. Belongings checked with Pt. and RN, signed and filed. Pt. came in from Post-op. VS stable, recorded. Surgical site clean, intact. In 2L NC. Denies SOB. Pain 09/09 at this time. Bed on lowest position, side rails upx2, brakes engaged. Call light within easy reach. Addendum: 02/11/19 at 1941 by Levi Chan RN WRONG Pt.
--- NOTE | 2019-02-11 16:45 | NUR ---
DISCHARGE PLANNING DISCHARGE ORDER NOTED Patient has been accepted to; [facility] [address] [place] [address] Bed: House 2A [facility] [phone] for Nurse to Nurse report Call a Car ETA for transportation: 17:30 Reference # [id number]
--- NOTE | 2019-02-11 17:20 | NUR ---
NURSE NOTES: Dicharge report given to Juan ALEX at [facility].
[2019-02-11] MEDS: Nitroglycerin Subl 0.4mg tab SL PRN ×2 (18:08→18:15)
--- NOTE | 2019-02-11 18:22 | Cardiac Electrophysiology PN ---
Assessment/Plan Assessment/Plan 1. Chest pain, CABG hx EKG showed no ischemic changes and is atrially paced. Troponins were negative, Stress test showed no ischemia or scar 2. Congestive heart failure and volume overload. BNP of more than 21,000. The patient is on hemodialysis and Coreg.EF 55% 3. Status post dual-chamber [employer] right-sided defibrillator implantation, last month ICD was checked, battery 5 years with no arrhythmia. 4. History of paroxysmal atrial fibrillation, atrially paced rhythm, on amiodarone 200 mg daily.On aspirin and Plavix Hold off anticoagulation as ICD showed no arrhythmias. 5. End-stage renal disease, on hemodialysis. 6. History of seizures, on Keppra. 7. Diabetes on insulin. MARIANA RN OK to DC from Cardiac standpoint Subjective Subjective Stress test yesterday showed no ischemia or scar. DC planning in progress Objective Last 24 Hour Vital Signs Date Time Temp Pulse Resp B/P (MAP) Pulse Ox O2 Delivery O2 Flow Rate FiO2 02/11/19 18:15 126/59 02/11/19 18:08 164/68 02/11/19 16:00 97.6 60 18 157/72 (100) 95 02/11/19 12:00 97.5 61 18 155/65 (95) 98 02/11/19 09:00 60 153/64 02/11/19 09:00 Room Air 02/11/19 08:00 97.6 60 18 153/64 (93) 96 02/11/19 05:30 62 18 145/64 (91) 95 02/11/19 04:50 98.2 61 18 160/72 (101) 96 02/11/19 00:00 98.2 60 17 152/64 (93) 95 02/10/19 22:16 61 163/68 02/10/19 21:00 Room Air 02/10/19 20:00 98.7 61 17 163/68 (99) 94 Intake and Output 02/10/19 02/11/19 19:00 07:00 Intake Total 440 ml 175 ml Output Total 2000 ml Balance -1560 ml 175 ml Intake Oral 440 ml 120 ml IV Total 55 ml Hemodialysis UF 2000 ml Laboratory Tests Test 02/11/19 05:20 White Blood Count 6.4 K/UL (4.8-10.8) Red Blood Count 3.35 M/UL (4.70-6.10) L Hemoglobin 11.3 G/DL (14.2-18.0) L Hematocrit 34.2 % (42.0-52.0) L Mean Corpuscular Volume 102 FL (80-99) H Mean Corpuscular Hemoglobin 33.8 PG (27.0-31.0) H Mean Corpuscular Hemoglobin Concent 33.1 G/DL (32.0-36.0) Red Cell Distribution Width 15.5 % (11.6-14.8) H Platelet Count 101 K/UL (150-450) L Mean Platelet Volume 7.6 FL (6.5-10.1) Neutrophils (%) (Auto) 65.7 % (45.0-75.0) Lymphocytes (%) (Auto) 17.3 % (20.0-45.0) L Monocytes (%) (Auto) 11.0 % (1.0-10.0) H Eosinophils (%) (Auto) 5.0 % (0.0-3.0) H Basophils (%) (Auto) 1.0 % (0.0-2.0) Sodium Level 140 MMOL/L (136-145) Potassium Level 4.2 MMOL/L (3.5-5.1) Chloride Level 100 MMOL/L (98-107) Carbon Dioxide Level 29 MMOL/L (21-32) Anion Gap 12 mmol/L (5-15) Blood Urea Nitrogen 22 mg/dL (7-18) H Creatinine 6.1 MG/DL (0.55-1.30) H Estimat Glomerular Filtration Rate mL/min (>60) Glucose Level 103 MG/DL (74-106) Calcium Level 9.0 MG/DL (8.5-10.1) Objective HEAD AND NECK: No JVD or carotid bruits. LUNGS: Clear. CARDIOVASCULAR: Regular S1 and S2 with no gallop. Defibrillator is in the right subclavian. ABDOMEN: Soft. EXTREMITIES: Have AV shunt to the left arm with bilateral ankle edema. Reno Pinto MD Feb 11, 2019 18:22
[2019-02-11] MEDS ORDERED: PLAVIX75 MG ORAL (18:29)
[2019-02-11] MEDS ORDERED: KEPPRA500 MG ORAL (18:29)
[2019-02-11] MEDS ORDERED: ASPIRIN81 M3 PO (18:31)
[2019-02-11] MEDS ORDERED: PROTONIX40 MG ORAL (18:31)
[2019-02-11] MEDS ORDERED: FLOMAX0.4 MG ORAL (18:32)
[2019-02-11] MEDS ORDERED: AMIODARONE HCL100 MG ORAL (18:32)
[2019-02-11] MEDS ORDERED: NEURONTIN250 MG/5 M PO (18:33)
[2019-02-11] MEDS ORDERED: NS 275ml ONE (18:59)
[2019-02-11] MEDS ORDERED: Tubing IV Secondary IV ONE (18:59)
--- NOTE | 2019-02-11 19:00 | NUR ---
NURSE NOTES: Pt. in stable condition. Denies pain at this time. VS stable. Dr. Pinto confirmed stable to be discharged. Discharge medications checked and confirmed by Dr. Novoa. Belongings checked with Pt. signed and filed. IV removed, intact. Name band removed. Discharge education given. Pt. family made aware of discharge. Report given to ISAI Martinez. Left floor safely via gurney, accompanied by ambulance personnel (Alycia).
--- NOTE | 2019-02-12 09:48 | Discharge Summary ---
Discharge Summary Discharge Summary _ DATE OF ADMISSION: 02/07/2019 DATE OF DISCHARGE: 02/11/2019 DISCHARGED BY : Dr Novoa REASON FOR ADMISSION: 73 years old male with past medical history of hypertension, history of CABG, end-stage renal disease, on hemodialysis, hyperlipidemia, presented with chest pain, constant , pressure-like , moderate in severity with associated shortness of breath. Patient reported being more fatigued. No abdominal pain. No nausea or vomiting. No diaphoresis. [facility] Upon evaluation vital signs were stable. Laboratory work-up revealed no leukocytosis , hemoglobin 10.4, hematocrit 31. Platelet count 156. Stable electrolytes. BUN 27, creatinine 6.1 , consistent with known history of end-stage renal disease. Stable LFT and lipase. CK within normal limits. Troponin 0.003, pro BNP 16515. EKG revealed atrial pacing , no acute changes. Albumin 2.7. Chest x-ray revealed accentuation of bronchovascular markings. Mild consolidation in the left lung base. Patient received aspirin , started on broad-spectrum antibiotics and admitted for further management. CONSULTANTS: behavioral health therapist Dr. Cary [facility]/ pulmonary Dr. Castellanos ID specialist Dr. Ortiz cloth pattern maker Dr. Grimes solar pv installer/oncologist [facility] COURSE: [] Patient initially admitted to telemetry floor. Auto Hauler followed. Serial troponins were negative. EKG was a atrial pacing. No evidence of acute myocardial infarction. Echocardiogram demonstrated preserved ejection fraction 55 to 60% with mild left ventricular hypertrophy. No evidence of pericardial effusion. No evidence of wall motion abnormality. Right ventricular systolic pressure of 38 consistent with mild pulmonary hypertension. Moderately elevated left atrial pressure grade 2. Myocardial perfusion stress test demonstrated no evidence of ischemia or infarct at the level of stress achieved. Post stress ejection fraction calculated to be 68%. Guideline directed medical therapy for congestive heart failure provided with beta-britni. Patient was on hemodialysis as well. Patient with a history of dual-chamber [employer] right-sided defibrillator implantation. ICD was checked last month. No evidence of arrhythmia noted battery life left of 5 years. Patient with known history of paroxysmal atrial fibrillation patient in daily amiodarone. Antiplatelet therapy dual antiplatelet therapy with aspirin and Plavix continued. Auto Hauler recommended to hold anticoagulation his ICD showed no arrhythmia. Venous duplex bilateral lower extremity revealed no evidence of acute DVT. Electronic Technologist follow. Hemodialysis provided per cloth pattern maker recommendations close monitoring of volumes and renal parameters and electrolytes. Electrolytes further corrected as needed. Infectious disease specialist followed. Patient remain afebrile no leukocytosis. Patient was on empiric antibiotic for possible pneumonia. Patient completed antibiotic in the hospital no need for antibiotic discontinued prior to discharge. Hemoglobin hematocrit for closely monitor his goal to keep hemoglobin above 7. Anemia work-up was consistent with anemia of chronic disease likely due to underlying chronic medical issue including kidney disease. No evidence of hemolysis. Platelet count was closely monitored. HIV test nonreactive hepatitis panel negative. Platelet count was closely monitor prior to discharge platelet count 101 hemoglobin 11.3 hematocrit 24.2. Epogen at this time was not particularly indicated consider Epogen if hemoglobin below 11. GI prophylaxis provided. DVT prophylaxis provided. Patient clinically stabilized and was ready [facility] care Blood sugar was managed with sliding scale of insulin. Seizure precaution maintained. Keppra continued. No evidence of seizure activity while in the hospital. FINAL DIAGNOSES: Chest pain in patient with history of CABG Possible ACS Congestive heart failure with volume overload Possible PNA, s/p treatment Status post dual-chamber [employer] right-sided defibrillator implantation History of paroxysmal atrial fibrillation End-stage renal disease , on hemodialysis Seizure disorder Diabetes mellitus DISCHARGE MEDICATIONS: See Medication Reconciliation list. DISCHARGE INSTRUCTIONS: [facility] Follow up with medical doctor at the facility. I have been assigned to dictate discharge summary for this account. I was not involved in the patient's management. Rosa Raya NP Feb 12, 2019 09:48
== END 2019-02-11 19:00 | DRG 311 ==
LOC: EDBD 09:42 → EMR 09:45 → 2E 10:27 → EDBEDREQ 11:11 → 2E 02-09 22:40 → 3E 02-10 10:41
PROC: 5A1D70Z Performance of Urinary Filtration, Intermittent, Less than 6 Hours Per Day (ICD-10-PCS; principal; 2019-02-10)
DX: I24.9 Acute ischemic heart disease, unspecified (principal); J18.9 Pneumonia, unspecified organism; N18.6 End stage renal disease; I13.2 Hypertensive heart and chronic kidney disease with heart failure and with stage 5 chronic kidney disease, or end stage renal disease; Z88.8 Allergy status to other drugs, medicaments and biological substances; E78.5 Hyperlipidemia, unspecified; Z95.0 Presence of cardiac pacemaker; E11.22 Type 2 diabetes mellitus with diabetic chronic kidney disease; N18.9 Chronic kidney disease, unspecified; D63.1 Anemia in chronic kidney disease; Z95.810 Presence of automatic (implantable) cardiac defibrillator; Z95.1 Presence of aortocoronary bypass graft; Z99.2 Dependence on renal dialysis; I25.10 Atherosclerotic heart disease of native coronary artery without angina pectoris; N40.0 Benign prostatic hyperplasia without lower urinary tract symptoms; G62.9 Polyneuropathy, unspecified; G40.909 Epilepsy, unspecified, not intractable, without status epilepticus; Z79.4 Long term (current) use of insulin; I50.9 Heart failure, unspecified; D69.6 Thrombocytopenia, unspecified; I27.20 Pulmonary hypertension, unspecified; I48.0 Paroxysmal atrial fibrillation; Z79.02 Long term (current) use of antithrombotics/antiplatelets; Z79.82 Long term (current) use of aspirin
CPT/HCPCS: 36415; 71045; 78452; 80048; 80053; 80061; 80299; 82248; 82550; 82553; 82607; 82728; 82746; 82962; 82977; 83036; 83540; 83550; 83690; 83735; 83880; 84100; 84443; 84484; 84550; 85025; 85610; 85730; 86140; 86703; 86706; 87081; 93005; 93017; 93306; 93970; 96365; 96368; 97803; 99285; J1815; J2785